=== PATIENT | male | born 1960 | race Caucasian/White ===

== ENCOUNTER 2016-09-02 15:04 | Emergency (ER) | payer MEDICAID ==
[~2016-09-02] VITALS: Ht 182.9 cm; Wt 136.0 kg
[~2016-09-02 15:04] MED LIST: CLON2 PO; HYDR25 PO; LITH300C3 PO; LITH600 PO; METO25 PO; OMEP20 PO; QUET200T PO
[2016-09-02] MEDS ORDERED: MORP30 PO (15:13)
[2016-09-02] MEDS ORDERED: FURO40 PO (15:14)
[2016-09-02] MEDS ORDERED: LIDOCAINE HCL/PF 1% 2 ML VIAL IM ONE (16:30)
[2016-09-02] MEDS ORDERED: CefTRIAXone SODIUM 1 GM/VIAL IM ONE (16:30)
[2016-09-02] MEDS ORDERED: DiphenhydrAMINE HCL 25 MG CAPSULE PO ONE (16:30)
[2016-09-02 17:23] VITALS: BP 140/94
== END 2016-09-02 18:57 | disposition home or self-care (01) ==
LOC: EMS 15:06
DX: L03.115 Cellulitis of right lower limb (principal); L29.9 Pruritus, unspecified; L08.9 Local infection of the skin and subcutaneous tissue, unspecified; I10 Essential (primary) hypertension; F17.210 Nicotine dependence, cigarettes, uncomplicated; Z20.7 Contact with and (suspected) exposure to pediculosis, acariasis and other infestations
CPT/HCPCS: 96372; 99284; J0696; J3490

== ENCOUNTER 2016-12-10 15:19 | Emergency (ER) | payer MEDICAID, OTHER ==
[~2016-12-10] VITALS: Ht 182.9 cm; Wt 140.4 kg
[~2016-12-10 15:19] MED LIST changes: +FURO40 PO; -HYDR25 PO; -LITH300C3 PO; -LITH600 PO; +MORP30 PO
[2016-12-10 17:38] VITALS: BP 151/90
== END 2016-12-10 17:42 | disposition home or self-care (01) ==
LOC: EMS 15:24
DX: L23.9 Allergic contact dermatitis, unspecified cause (principal); B86 Scabies; I10 Essential (primary) hypertension; F17.210 Nicotine dependence, cigarettes, uncomplicated
CPT/HCPCS: 99282

== ENCOUNTER 2016-12-10 19:35 | Inpatient (IN) | payer MEDICAID, OTHER ==
[~2016-12-10] VITALS: Ht 182.9 cm; Wt 141.0 kg
[2016-12-10 20:10] LABS: BASOPHILS % (AUTO) 0.8 % (0.0-2.0); EOSINOPHILS % (AUTO) 3.5 % (1.0-6.0); HEMATOCRIT 41.2 % (41-53); HEMOGLOBIN 13.4 g/dL (13.5-17.5); LYMPHOCYTES # (AUTO) 4.6 K/uL (1.0-4.8); LYMPHOCYTES % (AUTO) 44.9 % (22.0-44.0); MEAN CORPUSCULAR HEMOGLOBIN 27.1 pg (26.0-34.0); MEAN CORPUSCULAR HGB CONC 32.5 G/dL (31.0-37.0); MEAN CORPUSCULAR VOLUME 83 fL (80-100); MONOCYTES # (AUTO) 1.3 K/uL (0.1-1.0); MONOCYTES % (AUTO) 12.6 % (2.0-9.0); NEUTROPHILS # (AUTO) 3.9 K/uL (1.8-7.7); NEUTROPHILS % (AUTO) 38.2 % (40.0-70.0); PLATELET COUNT (AUTO) 368 K/uL (150-450); RED BLOOD CELL COUNT(AUTO) 4.94 MIL/uL (4.50-5.90); RED CELL DISTRIBUTION WIDTH 15.6 % (11.5-14.5); WHITE BLOOD COUNT (AUTO) 10.1 K/uL (4.5-11.0)
[2016-12-10 20:40] LABS: CARBON DIOXIDE 27 mmol/L (22-29); CHLORIDE 103 mmol/L (98-107); POTASSIUM 3.7 mmol/L (3.5-5.1); SODIUM SERUM 140 mmol/L (136-145)
[2016-12-10 20:41] LABS: ANION GAP 96 mmol/L (8-16); ASPARTATE AMINOTRANSFERASE 25 U/L (15-37); BILIRUBIN,TOTAL 0.5 mg/dL (0.1-1.0); CREATININE 1.02 mg/dL (0.60-1.30); GLOMERULAR FILTR. RATE CALC > 60 mL/min (>60); UREA NITROGEN, BLOOD 11 mg/dL (7-18)
[2016-12-10 20:42] LABS: ALANINE AMINOTRANSFERASE 35 U/L (12-78); ALBUMIN 3.9 g/dL (3.4-5.0); TOTAL PROTEIN, SERUM 9.1 g/dL (6.4-8.2)
[2016-12-10] MEDS ORDERED: CEPHALEXIN MONOHYDRATE 500 MG CAPSULE PO ONE (22:15)
[2016-12-10] MEDS ORDERED: QUEtiapine FUMARATE 100 MG TABLET PO ONE (22:15)
[2016-12-10] MEDS ORDERED: PERMETHRIN 5% 60 GM CREAM TP ONE (22:15)
[2016-12-10] MEDS ORDERED: QUEtiapine FUMARATE 100 MG TABLET PO PRN (22:45)
[2016-12-10] MEDS ORDERED: ZOLPIDEM TARTRATE 10 MG TABLET PO PRN (22:45)
[2016-12-10 23:17] LABS: CHOL/HDL RATIO 4.5 (4.2-7.3)
[2016-12-11 01:32] VITALS: BP 121/66
[2016-12-11 07:12] LABS: ADD UA MICROSCOPIC NO; APPEARANCE,URINE CLEAR (CLEAR); GLUCOSE, URINE (UA) NEGATIVE (NEGATIVE); KETONES,URINE NEGATIVE (NEGATIVE); LEUKOCYTE ESTERASE ,URINE NEGATIVE (NEGATIVE); OCCULT BLOOD,URINE NEGATIVE (NEGATIVE); PH,URINE 5.5 (5.0-8.0); PROTEIN,URINE NEGATIVE (NEGATIVE)
[2016-12-11] MEDS ORDERED: ALBUTEROL SULFATE HFA 90 MCG/PUFF 8 GM INHALER IH PRN (07:30)
[2016-12-11] MEDS ORDERED: ACETAMINOPHEN 325 MG TABLET PO PRN (07:30)
[2016-12-11] MEDS ORDERED: IBUPROFEN 600 MG TABLET PO PRN (07:30)
[2016-12-11] MEDS ORDERED: PETROLATUM,WHITE 71 GM JELLY TP PRN (07:30)
[2016-12-11] MEDS ORDERED: ONDANSETRON HCL 4 MG TABLET PO PRN (07:30)
[2016-12-11] MEDS ORDERED: CloNIDine HCL 0.1 MG TABLET PO PRN (07:30)
[2016-12-11] MEDS ORDERED: LOPERAMIDE HCL 2 MG CAPSULE PO PRN (07:30)
[2016-12-11] MEDS ORDERED: MAGNESIUM HYDROXIDE SUSPENSION 30 ML UDCUP PO PRN (07:30)
[2016-12-11] MEDS ORDERED: BACITRACIN 28.4 GM OINTMENT TP PRN (07:30)
[2016-12-11] MEDS ORDERED: MAG HYDROX/AL HYDROX/SIMETH ES 30 ML SUSPENSION UDCUP PO PRN (07:30)
[2016-12-11] MEDS ORDERED: BENZOCAINE/MENTHOL LOZENGE [8 LOZENGES/PACKET] MM PRN (07:45)
[2016-12-11 08:00] VITALS: BP 111/67
[2016-12-11] MEDS: METOPROLOL TARTRATE 25 MG TABLET PO SCH ×2 (09:00→16:08)
[2016-12-11] MEDS: OMEPRAZOLE 20 MG CAPSULE PO SCH (09:47)
[2016-12-11] MEDS: DOCUSATE SODIUM 100 MG CAPSULE PO SCH (09:47)
[2016-12-11] MEDS: TraMADol HCL 50 MG TABLET PO PRN (09:47)
[2016-12-11] MEDS: ESCITALOPRAM OXALATE 10 MG TABLET PO SCH (13:00)
[2016-12-11 16:08] VITALS: BP 124/88
[2016-12-11] MEDS: QUEtiapine FUMARATE 200 MG TABLET PO SCH (20:40)
[2016-12-12] MEDS: DOCUSATE SODIUM 100 MG CAPSULE PO SCH (09:10)
[2016-12-12] MEDS: OMEPRAZOLE 20 MG CAPSULE PO SCH (09:10)
[2016-12-12] MEDS: METOPROLOL TARTRATE 25 MG TABLET PO SCH ×2 (09:11→16:54)
[2016-12-12] MEDS: ESCITALOPRAM OXALATE 10 MG TABLET PO SCH (09:11)
[2016-12-12 11:33] VITALS: BP 136/77
[2016-12-12] MEDS: TraMADol HCL 50 MG TABLET PO PRN (11:33)
[2016-12-12] MEDS: LORazepam 2 MG TABLET PO PRN (14:15)
[2016-12-12 20:08] VITALS: BP 127/70
[2016-12-12] MEDS: QUEtiapine FUMARATE 200 MG TABLET PO SCH (21:19)
[2016-12-13 01:05] VITALS: BP 144/84
[2016-12-13] MEDS: TraMADol HCL 50 MG TABLET PO PRN ×2 (01:10→10:06)
[2016-12-13] MEDS: DOCUSATE SODIUM 100 MG CAPSULE PO SCH (10:00)
[2016-12-13] MEDS: METOPROLOL TARTRATE 25 MG TABLET PO SCH ×2 (10:01→17:38)
[2016-12-13] MEDS: ESCITALOPRAM OXALATE 10 MG TABLET PO SCH (10:01)
[2016-12-13] MEDS: OMEPRAZOLE 20 MG CAPSULE PO SCH (10:01)
[2016-12-13 10:06] VITALS: BP 136/72
[2016-12-13] MEDS ORDERED: PNEUMOCOCCAL VACCINE POLYVALENT 0.5 ML VIAL [PPSV23] IM ONE (11:30)
[2016-12-13] MEDS: LORazepam 2 MG TABLET PO PRN (12:27)
[2016-12-13] MEDS ORDERED: MORPHINE SULFATE 30 MG ER TABLET PO ONE (16:30)
[2016-12-13 17:33] VITALS: BP 134/69
[2016-12-13] MEDS: QUEtiapine FUMARATE 200 MG TABLET PO SCH (20:05)
[2016-12-14] MEDS: OMEPRAZOLE 20 MG CAPSULE PO SCH (09:51)
[2016-12-14] MEDS: METOPROLOL TARTRATE 25 MG TABLET PO SCH ×2 (09:51→17:59)
[2016-12-14] MEDS: DOCUSATE SODIUM 100 MG CAPSULE PO SCH (09:51)
[2016-12-14 09:52] VITALS: BP 104/55
[2016-12-14] MEDS: ESCITALOPRAM OXALATE 10 MG TABLET PO SCH (09:52)
[2016-12-14] MEDS: TraMADol HCL 50 MG TABLET PO PRN ×2 (09:52→20:17)
[2016-12-14] MEDS: LORazepam 2 MG TABLET PO PRN ×2 (12:24→22:12)
[2016-12-14 20:17] VITALS: BP 142/79
[2016-12-14] MEDS: QUEtiapine FUMARATE 200 MG TABLET PO SCH (20:27)
[2016-12-14] MEDS ORDERED: MORPHINE SULFATE 15 MG ER TABLET PO ONE (22:30)
[2016-12-15 08:02] VITALS: BP 138/68
[2016-12-15] MEDS: METOPROLOL TARTRATE 25 MG TABLET PO SCH ×2 (09:13→17:13)
[2016-12-15] MEDS: OMEPRAZOLE 20 MG CAPSULE PO SCH (09:14)
[2016-12-15] MEDS: DOCUSATE SODIUM 100 MG CAPSULE PO SCH (09:14)
[2016-12-15] MEDS: LORazepam 2 MG TABLET PO PRN ×2 (09:14→21:42)
[2016-12-15] MEDS: ESCITALOPRAM OXALATE 10 MG TABLET PO SCH (09:14)
[2016-12-15] MEDS: MORPHINE SULFATE 15 MG ER TABLET PO SCH (09:15)
[2016-12-15] MEDS ORDERED: MORPHINE SULFATE 30 MG ER TABLET PO SCH (17:00)
[2016-12-15 20:39] VITALS: BP 141/79
[2016-12-15] MEDS: TraMADol HCL 50 MG TABLET PO PRN (20:40)
[2016-12-15] MEDS: QUEtiapine FUMARATE 200 MG TABLET PO SCH (20:40)
[2016-12-15 21:39] VITALS: BP 130/80
[2016-12-16] MEDS: MORPHINE SULFATE 15 MG ER TABLET PO SCH (08:36)
[2016-12-16] MEDS: OMEPRAZOLE 20 MG CAPSULE PO SCH (08:37)
[2016-12-16] MEDS: METOPROLOL TARTRATE 25 MG TABLET PO SCH ×2 (08:37→16:54)
[2016-12-16] MEDS: ESCITALOPRAM OXALATE 10 MG TABLET PO SCH (08:37)
[2016-12-16] MEDS: DOCUSATE SODIUM 100 MG CAPSULE PO SCH (08:37)
[2016-12-16] MEDS: LORazepam 2 MG TABLET PO PRN ×2 (08:40→17:51)
[2016-12-16 11:10] VITALS: BP 138/78
[2016-12-16] MEDS: TraMADol HCL 50 MG TABLET PO PRN (11:10)
[2016-12-16] MEDS ORDERED: ESCITALOPRAM OXALATE 10 MG TABLET PO ONE (14:00)
[2016-12-16 16:01] VITALS: BP 136/67
[2016-12-16] MEDS: QUEtiapine FUMARATE 200 MG TABLET PO SCH (21:10)
[2016-12-16 23:08] VITALS: BP 140/80
[2016-12-17 07:02] LABS: HEMOGLOBIN 13.6 g/dL (13.5-17.5); MEAN CORPUSCULAR HEMOGLOBIN 27.3 pg (26.0-34.0); MEAN CORPUSCULAR HGB CONC 32.4 G/dL (31.0-37.0); MEAN CORPUSCULAR VOLUME 84 fL (80-100); PLATELET COUNT (AUTO) 291 K/uL (150-450); RED BLOOD CELL COUNT(AUTO) 4.98 MIL/uL (4.50-5.90); RED CELL DISTRIBUTION WIDTH 14.9 % (11.5-14.5); WHITE BLOOD COUNT (AUTO) 10.3 K/uL (4.5-11.0)
[2016-12-17 07:05] LABS: ANION GAP 9 mmol/L (8-16); CALCIUM, TOTAL 8.6 mg/dL (8.8-10.5); CARBON DIOXIDE 26 mmol/L (22-29); CHLORIDE 104 mmol/L (98-107); CREATININE 0.95 mg/dL (0.60-1.30); GLOMERULAR FILTR. RATE CALC > 60 mL/min (>60); SODIUM SERUM 139 mmol/L (136-145); UREA NITROGEN, BLOOD 17 mg/dL (7-18)
[2016-12-17 07:32] LABS: EOSINOPHILS % (MANUAL) 1 % (1-6); LYMPHOCYTES % (MANUAL) 38 % (22-44); TOTAL CELLS COUNTED 100
[2016-12-17 07:33] LABS: RBC MORPHOLOGY COMMENT NORMAL RBC MORPH
[2016-12-17 07:42] LABS: B-TYPE NATRIURETIC PEPTIDE 17 pg/mL (0-100)
[2016-12-17 08:05] VITALS: BP 136/88
[2016-12-17] MEDS: OMEPRAZOLE 20 MG CAPSULE PO SCH (09:58)
[2016-12-17] MEDS: ESCITALOPRAM OXALATE 10 MG TABLET PO SCH (09:58)
[2016-12-17] MEDS: DOCUSATE SODIUM 100 MG CAPSULE PO SCH (09:58)
[2016-12-17] MEDS: MORPHINE SULFATE 15 MG ER TABLET PO SCH (09:58)
[2016-12-17] MEDS: METOPROLOL TARTRATE 25 MG TABLET PO SCH ×2 (09:59→16:46)
[2016-12-17] MEDS: LORazepam 2 MG TABLET PO PRN (13:17)
[2016-12-17 16:08] VITALS: BP 113/72
[2016-12-17] MEDS: TraMADol HCL 50 MG TABLET PO PRN (16:54)
[2016-12-17] MEDS: QUEtiapine FUMARATE 200 MG TABLET PO SCH (20:19)
[2016-12-18 09:14] VITALS: BP 108/72
[2016-12-18] MEDS: MORPHINE SULFATE 15 MG ER TABLET PO SCH (10:09)
[2016-12-18] MEDS: DOCUSATE SODIUM 100 MG CAPSULE PO SCH (10:09)
[2016-12-18] MEDS: OMEPRAZOLE 20 MG CAPSULE PO SCH (10:09)
[2016-12-18] MEDS: METOPROLOL TARTRATE 25 MG TABLET PO SCH ×2 (10:09→17:50)
[2016-12-18] MEDS: ESCITALOPRAM OXALATE 10 MG TABLET PO SCH (10:10)
[2016-12-18 11:20] VITALS: BP 108/56
[2016-12-18] MEDS: TraMADol HCL 50 MG TABLET PO PRN (11:20)
[2016-12-18 12:20] VITALS: BP 110/68
[2016-12-18] MEDS: LORazepam 2 MG TABLET PO PRN ×2 (12:51→21:55)
[2016-12-18 16:00] VITALS: BP 140/86
[2016-12-18] MEDS: QUEtiapine FUMARATE 200 MG TABLET PO SCH (21:55)
[2016-12-19] MEDS: DOCUSATE SODIUM 100 MG CAPSULE PO SCH (08:29)
[2016-12-19] MEDS: MORPHINE SULFATE 15 MG ER TABLET PO SCH (08:29)
[2016-12-19] MEDS: OMEPRAZOLE 20 MG CAPSULE PO SCH (08:29)
[2016-12-19] MEDS: ESCITALOPRAM OXALATE 10 MG TABLET PO SCH (08:29)
[2016-12-19] MEDS: METOPROLOL TARTRATE 25 MG TABLET PO SCH (08:29)
[2016-12-19 09:17] VITALS: BP 131/82
[2016-12-19] MEDS: TraMADol HCL 50 MG TABLET PO PRN (12:11)
[2016-12-19] MEDS: LORazepam 2 MG TABLET PO PRN (12:11)
[2016-12-19] MEDS ORDERED: ESCI10TA PO (13:33)
[2016-12-19] MEDS ORDERED: DSS100 PO (13:35)
== END 2016-12-19 16:00 | disposition home or self-care (01) | DRG 750 ==
LOC: EMS 19:36 → 3EI 23:38
PROC: GZHZZZZ Group Psychotherapy (ICD-10-PCS; principal; 2016-12-11)
DX: F25.1 Schizoaffective disorder, depressive type (principal); R45.851 Suicidal ideations; C10.9 Malignant neoplasm of oropharynx, unspecified; Z68.41 Body mass index [BMI] 40.0-44.9, adult; I10 Essential (primary) hypertension; B86 Scabies; C14.0 Malignant neoplasm of pharynx, unspecified; J44.9 Chronic obstructive pulmonary disease, unspecified; F17.210 Nicotine dependence, cigarettes, uncomplicated; F15.90 Other stimulant use, unspecified, uncomplicated; E78.5 Hyperlipidemia, unspecified; F10.129 Alcohol abuse with intoxication, unspecified; G89.3 Neoplasm related pain (acute) (chronic); M21.371 Foot drop, right foot; E66.9 Obesity, unspecified; K21.9 Gastro-esophageal reflux disease without esophagitis; K59.00 Constipation, unspecified; G47.00 Insomnia, unspecified; Z71.6 Tobacco abuse counseling; Z72.89 Other problems related to lifestyle; Z71.41 Alcohol abuse counseling and surveillance of alcoholic; Z79.899 Other long term (current) drug therapy; Z91.5 Personal history of self-harm; Z79.891 Long term (current) use of opiate analgesic; Z28.21 Immunization not carried out because of patient refusal
CPT/HCPCS: 83735; 84100; 85007; 87040; 93005; 99285; G0480

== ENCOUNTER 2017-02-26 12:17 | Emergency (ER) | payer MEDICAID, OTHER ==
[~2017-02-26] VITALS: Ht 182.9 cm; Wt 139.1 kg
[~2017-02-26 12:17] MED LIST changes: -CLON2 PO; +DSS100 PO; +ESCI10TA PO; -FURO40 PO; -MORP30 PO
[2017-02-26 15:15] LABS: EOSINOPHILS % (AUTO) 2.5 % (1.0-6.0); HEMOGLOBIN 13.1 g/dL (13.5-17.5); LYMPHOCYTES # (AUTO) 4.7 K/uL (1.0-4.8); LYMPHOCYTES % (AUTO) 35.6 % (22.0-44.0); MEAN CORPUSCULAR HGB CONC 33.5 G/dL (31.0-37.0); MEAN CORPUSCULAR VOLUME 81 fL (80-100); MONOCYTES # (AUTO) 1.6 K/uL (0.1-1.0); MONOCYTES % (AUTO) 12.4 % (2.0-9.0); NEUTROPHILS # (AUTO) 6.4 K/uL (1.8-7.7); NEUTROPHILS % (AUTO) 48.5 % (40.0-70.0); PLATELET COUNT (AUTO) 349 K/uL (150-450); RED BLOOD CELL COUNT(AUTO) 4.84 MIL/uL (4.50-5.90); RED CELL DISTRIBUTION WIDTH 15.5 % (11.5-14.5); WHITE BLOOD COUNT (AUTO) 13.2 K/uL (4.5-11.0)
[2017-02-26 15:25] LABS: CALCIUM, TOTAL 9.3 mg/dL (8.8-10.5); CREATININE 1.45 mg/dL (0.60-1.30); POTASSIUM 3.9 mmol/L (3.5-5.1)
[2017-02-26 15:31] LABS: BILIRUBIN,TOTAL 0.6 mg/dL (0.1-1.0); TOTAL PROTEIN, SERUM 8.8 g/dL (6.4-8.2)
[2017-02-26] MEDS: OxyCODONE HCL/ACETAMINOPHEN 5-325 MG TABLET PO ONE ×2 (15:43→15:54)
[2017-02-26] MEDS ORDERED: SODIUM CHLORIDE 0.9% 1,000 ML IV ONE (15:45)
[2017-02-26] MEDS ORDERED: CLINDAMYCIN 900 MG/D5% WATER 50 ML IV ONE (15:45)
[2017-02-26 16:51] VITALS: BP 152/63
[2017-02-27] MEDS ORDERED: CLON.5 PO (04:34)
[2017-02-27] MEDS ORDERED: HYDR-309 PO (04:34)
== END 2017-02-26 18:43 | disposition home or self-care (01) ==
LOC: EMS 12:18
DX: L03.115 Cellulitis of right lower limb (principal); I10 Essential (primary) hypertension; F17.210 Nicotine dependence, cigarettes, uncomplicated
CPT/HCPCS: 36415; 80053; 83690; 84484; 85025; 87040; 96365; 99285; J3490; J7030

== ENCOUNTER 2017-05-12 00:15 | Emergency (ER) | payer MEDICAID, OTHER ==
[~2017-05-12] VITALS: Ht 182.9 cm; Wt 118.2 kg
[~2017-05-12 00:15] MED LIST changes: +CEPH500 PO; -ESCI10TA PO; +FERR-89 PO; -QUET200T PO; +QUET300T2 PO
[2017-05-12] MEDS ORDERED: HYDR-4065 PO (00:26)
[2017-05-12] MEDS ORDERED: CLON1TAB4 PO (00:26)
[2017-05-12] MEDS ORDERED: ATOR20TA65 PO (00:26)
[2017-05-12] MEDS ORDERED: MORP30TA11 PO (00:26)
[2017-05-12] MEDS ORDERED: LISI10TA7 PO (00:26)
[2017-05-12] MEDS ORDERED: PERMETHRIN 1% 60 ML LOTION TP ONE (01:30)
[2017-05-12 01:41] VITALS: BP 144/92
== END 2017-05-12 02:08 | disposition home or self-care (01) ==
LOC: EMS 00:16
DX: B86 Scabies (principal); I10 Essential (primary) hypertension
CPT/HCPCS: 99282

== ENCOUNTER 2017-07-04 17:54 | Inpatient (IN) | payer MEDICAID ==
[~2017-07-04 17:54] MED LIST changes: +ATOR20TA65 PO; -CEPH500 PO; +CLON1TAB4 PO; -DSS100 PO; -FERR-89 PO; +HYDR-4065 PO; +LISI10TA7 PO; +MORP30TA11 PO; -OMEP20 PO
[2017-07-04 21:02] VITALS: BP 127/78
[2017-07-04] MEDS ORDERED: HALOPERIDOL 5 MG TABLET PO PRN (21:30)
[2017-07-04] MEDS ORDERED: ZOLPIDEM TARTRATE 10 MG TABLET PO PRN (21:30)
[2017-07-04] MEDS ORDERED: ACETAMINOPHEN 325 MG TABLET PO PRN (21:45)
[2017-07-04] MEDS ORDERED: IBUPROFEN 600 MG TABLET PO PRN (21:45)
[2017-07-04] MEDS: LORazepam 2 MG TABLET PO PRN (22:02)
[2017-07-04] MEDS: QUEtiapine FUMARATE 100 MG TABLET PO SCH (22:02)
[2017-07-04 22:05] VITALS: BP 131/69
[2017-07-04] MEDS ORDERED: INFLUENZA VIRUS VACCINE QVS 2017-18 (3YR+)/PF 60 MCG/0.5 ML SYRINGE IM ONE (22:15)
[2017-07-05] MEDS: FERROUS SULFATE 325 MG EC TABLET PO SCH ×2 (06:47→17:17)
[2017-07-05] MEDS: OMEPRAZOLE 20 MG CAPSULE PO SCH (06:47)
[2017-07-05 08:17] VITALS: BP 104/64
[2017-07-05] MEDS: QUEtiapine FUMARATE 25 MG TABLET PO SCH ×2 (08:43→16:36)
[2017-07-05] MEDS: DOCUSATE SODIUM 100 MG CAPSULE PO SCH (08:44)
[2017-07-05] MEDS: LORazepam 2 MG TABLET PO PRN ×3 (09:37→20:55)
[2017-07-05] MEDS ORDERED: ACETAMINOPHEN 325 MG TABLET PO PRN (12:00)
[2017-07-05] MEDS ORDERED: ALBUTEROL SULFATE HFA 90 MCG/PUFF 8 GM INHALER IH PRN (12:00)
[2017-07-05] MEDS: METOPROLOL TARTRATE 25 MG TABLET PO SCH ×2 (12:09→17:17)
[2017-07-05 16:30] VITALS: BP 102/61
[2017-07-05] MEDS: QUEtiapine FUMARATE 100 MG TABLET PO SCH (20:55)
[2017-07-05] MEDS: IBUPROFEN 400 MG TABLET PO PRN (20:57)
[2017-07-05 20:58] VITALS: BP 108/69
[2017-07-06] MEDS: OMEPRAZOLE 20 MG CAPSULE PO SCH (06:20)
[2017-07-06] MEDS: FERROUS SULFATE 325 MG EC TABLET PO SCH ×2 (06:20→17:45)
[2017-07-06 08:26] VITALS: BP 124/86
[2017-07-06] MEDS: DOCUSATE SODIUM 100 MG CAPSULE PO SCH (09:32)
[2017-07-06] MEDS: METOPROLOL TARTRATE 25 MG TABLET PO SCH ×2 (09:32→17:45)
[2017-07-06] MEDS: QUEtiapine FUMARATE 25 MG TABLET PO SCH ×2 (09:33→17:45)
[2017-07-06] MEDS: LORazepam 2 MG TABLET PO PRN ×3 (09:53→22:58)
[2017-07-06] MEDS: IBUPROFEN 400 MG TABLET PO PRN (14:59)
[2017-07-06 15:03] VITALS: BP 117/75
[2017-07-06 16:00] VITALS: BP 120/79
[2017-07-06 16:38] VITALS: BP 120/79
[2017-07-06] MEDS: QUEtiapine FUMARATE 100 MG TABLET PO SCH (20:47)
[2017-07-07] MEDS: OMEPRAZOLE 20 MG CAPSULE PO SCH ×2 (06:48→10:49)
[2017-07-07] MEDS: FERROUS SULFATE 325 MG EC TABLET PO SCH ×2 (06:48→16:52)
[2017-07-07] MEDS: DOCUSATE SODIUM 100 MG CAPSULE PO SCH (10:49)
[2017-07-07] MEDS: METOPROLOL TARTRATE 25 MG TABLET PO SCH ×2 (10:49→16:15)
[2017-07-07] MEDS: QUEtiapine FUMARATE 25 MG TABLET PO SCH ×2 (10:50→16:15)
[2017-07-07] MEDS: LORazepam 2 MG TABLET PO PRN ×2 (10:52→20:18)
[2017-07-07 10:53] VITALS: BP 121/74
[2017-07-07] MEDS: IBUPROFEN 400 MG TABLET PO PRN ×2 (10:53→20:17)
[2017-07-07 17:13] VITALS: BP 132/77
[2017-07-07 20:15] VITALS: BP 119/72
[2017-07-07] MEDS: QUEtiapine FUMARATE 100 MG TABLET PO SCH (20:16)
[2017-07-07 21:15] VITALS: BP 121/70
[2017-07-08] MEDS: FERROUS SULFATE 325 MG EC TABLET PO SCH ×2 (06:35→17:52)
[2017-07-08] MEDS: OMEPRAZOLE 20 MG CAPSULE PO SCH (07:13)
[2017-07-08] MEDS: QUEtiapine FUMARATE 25 MG TABLET PO SCH ×2 (09:45→17:53)
[2017-07-08] MEDS: DOCUSATE SODIUM 100 MG CAPSULE PO SCH (09:45)
[2017-07-08] MEDS: METOPROLOL TARTRATE 25 MG TABLET PO SCH ×2 (09:45→17:52)
[2017-07-08 09:56] VITALS: BP 123/70
[2017-07-08] MEDS: IBUPROFEN 400 MG TABLET PO PRN (10:10)
[2017-07-08 10:11] VITALS: BP 136/70
[2017-07-08] MEDS: LORazepam 2 MG TABLET PO PRN ×3 (10:11→21:35)
[2017-07-08 17:03] VITALS: BP 117/73
[2017-07-08] MEDS: QUEtiapine FUMARATE 100 MG TABLET PO SCH (21:35)
[2017-07-09] MEDS: FERROUS SULFATE 325 MG EC TABLET PO SCH ×2 (06:37→16:44)
[2017-07-09] MEDS: OMEPRAZOLE 20 MG CAPSULE PO SCH (07:08)
[2017-07-09] MEDS: DOCUSATE SODIUM 100 MG CAPSULE PO SCH ×2 (09:00→10:35)
[2017-07-09 10:30] VITALS: BP 140/80
[2017-07-09] MEDS: METOPROLOL TARTRATE 25 MG TABLET PO SCH ×2 (10:35→16:41)
[2017-07-09] MEDS: QUEtiapine FUMARATE 25 MG TABLET PO SCH ×2 (10:36→16:41)
[2017-07-09] MEDS: FLUoxetine HCL 20 MG CAPSULE PO SCH (10:36)
[2017-07-09] MEDS: LORazepam 2 MG TABLET PO PRN ×3 (10:37→21:27)
[2017-07-09 16:30] VITALS: BP 121/75
[2017-07-09] MEDS: QUEtiapine FUMARATE 100 MG TABLET PO SCH (20:28)
[2017-07-10 00:08] VITALS: BP 130/83
[2017-07-10] MEDS: FERROUS SULFATE 325 MG EC TABLET PO SCH (06:30)
[2017-07-10] MEDS: DOCUSATE SODIUM 100 MG CAPSULE PO SCH (09:00)
[2017-07-10 09:10] VITALS: BP 123/85
[2017-07-10] MEDS: FLUoxetine HCL 20 MG CAPSULE PO SCH (09:27)
[2017-07-10] MEDS: QUEtiapine FUMARATE 25 MG TABLET PO SCH (09:27)
[2017-07-10] MEDS: LORazepam 2 MG TABLET PO PRN (09:27)
[2017-07-10] MEDS: METOPROLOL TARTRATE 25 MG TABLET PO SCH (09:28)
[2017-07-10] MEDS ORDERED: QUET25TA PO (12:15)
[2017-07-10] MEDS ORDERED: QUET100T PO (12:16)
[2017-07-10] MEDS ORDERED: FLUO-191 PO (12:16)
[2017-07-10] MEDS ORDERED: FERR-89 PO (12:17)
[2017-07-10] MEDS ORDERED: DSS100 PO (12:17)
[2017-07-10] MEDS ORDERED: OMEP20 PO (12:18)
== END 2017-07-10 13:30 | disposition home or self-care (01) | DRG 750 ==
LOC: 3EI 20:20
DX: F25.1 Schizoaffective disorder, depressive type (principal); R45.851 Suicidal ideations; F15.20 Other stimulant dependence, uncomplicated; I10 Essential (primary) hypertension; R07.9 Chest pain, unspecified; G89.29 Other chronic pain; K21.9 Gastro-esophageal reflux disease without esophagitis; J44.9 Chronic obstructive pulmonary disease, unspecified; E78.5 Hyperlipidemia, unspecified; S93.402A Sprain of unspecified ligament of left ankle, initial encounter; S93.401A Sprain of unspecified ligament of right ankle, initial encounter; Z91.5 Personal history of self-harm; Z85.819 Personal history of malignant neoplasm of unspecified site of lip, oral cavity, and pharynx; Z79.899 Other long term (current) drug therapy; X58.XXXA Exposure to other specified factors, initial encounter; Y93.89 Activity, other specified; Y92.89 Other specified places as the place of occurrence of the external cause; Y99.8 Other external cause status
CPT/HCPCS: 84443; 87081

== ENCOUNTER 2017-09-07 22:29 | Inpatient (IN) | payer MEDICAID ==
[~2017-09-07] VITALS: Ht 182.9 cm; Wt 117.3 kg
[~2017-09-07 22:29] MED LIST changes: -ATOR20TA65 PO; -CLON1TAB4 PO; +DSS100 PO; +FERR-89 PO; +FLUO-191 PO; -HYDR-4065 PO; -LISI10TA7 PO; -MORP30TA11 PO; +OMEP20 PO; +QUET100T PO; +QUET25TA PO; -QUET300T2 PO
[2017-09-07] MEDS ORDERED: LORazepam 2 MG TABLET PO PRN (23:45)
[2017-09-08] MEDS ORDERED: INFLUENZA VIRUS VACCINE QVS 2017-18 (3YR+)/PF 60 MCG/0.5 ML SYRINGE IM ONE (00:15)
[2017-09-08] MEDS ORDERED: PNEUMOCOCCAL VACCINE POLYVALENT 0.5 ML VIAL [PPSV23] IM ONE (00:15)
[2017-09-08 01:00] VITALS: BP 161/84
[2017-09-08] MEDS: ZOLPIDEM TARTRATE 10 MG TABLET PO PRN (02:46)
[2017-09-08 06:41] LABS: BASOPHILS % (AUTO) 0.7 % (0.0-2.0); HEMATOCRIT 38.7 % (41-53); HEMOGLOBIN 13.3 g/dL (13.5-17.5); LYMPHOCYTES # (AUTO) 2.6 K/uL (1.0-4.8); LYMPHOCYTES % (AUTO) 30.4 % (22.0-44.0); MEAN CORPUSCULAR HEMOGLOBIN 28.3 pg (26.0-34.0); MEAN CORPUSCULAR HGB CONC 34.4 G/dL (31.0-37.0); MEAN CORPUSCULAR VOLUME 82 fL (80-100); MONOCYTES # (AUTO) 1.2 K/uL (0.1-1.0); MONOCYTES % (AUTO) 13.4 % (2.0-9.0); NEUTROPHILS # (AUTO) 4.6 K/uL (1.8-7.7); NEUTROPHILS % (AUTO) 53.5 % (40.0-70.0); PLATELET COUNT (AUTO) 285 K/uL (150-450); RED BLOOD CELL COUNT(AUTO) 4.71 MIL/uL (4.50-5.90); RED CELL DISTRIBUTION WIDTH 15.2 % (11.5-14.5)
[2017-09-08 08:00] VITALS: BP 132/86
[2017-09-08 08:14] LABS: ALANINE AMINOTRANSFERASE 88 U/L (12-78); ALBUMIN 3.1 g/dL (3.4-5.0); ALKALINE PHOSPHATASE 60 U/L (46-116); ANION GAP 8 mmol/L (8-16); ASPARTATE AMINOTRANSFERASE 55 U/L (15-37); BILIRUBIN,TOTAL 0.6 mg/dL (0.1-1.0); CALCIUM, TOTAL 8.3 mg/dL (8.8-10.5); CARBON DIOXIDE 26 mmol/L (22-29); CHLORIDE 102 mmol/L (98-107); CHOL/HDL RATIO 3.6 (4.2-7.3); CHOLESTEROL 114 mg/dL (131-200); CREATININE 0.86 mg/dL (0.60-1.30); FREE T4 (FREE THYROXINE) 1.02 ng/dL (0.76-1.46); GLOMERULAR FILTR. RATE CALC > 60 mL/min (>60); GLUCOSE,RANDOM 110 mg/dL (70-110); HDL CHOLESTEROL 32 mg/dL (40-60); LDL CHOL (CALC.) 68 mg/dL (0-130); POTASSIUM 3.8 mmol/L (3.5-5.1); SODIUM SERUM 136 mmol/L (136-145); TOTAL PROTEIN, SERUM 7.5 g/dL (6.4-8.2); TRIGLYCERIDES 69 mg/dL (15-150); UREA NITROGEN, BLOOD 19 mg/dL (7-18)
[2017-09-08] MEDS ORDERED: ACETAMINOPHEN 325 MG TABLET PO PRN (16:00)
[2017-09-08 16:30] VITALS: BP 117/78
[2017-09-08] MEDS: FERROUS SULFATE 325 MG EC TABLET PO SCH (17:39)
[2017-09-08] MEDS: QUEtiapine FUMARATE 100 MG TABLET PO SCH (17:39)
[2017-09-08] MEDS: METOPROLOL TARTRATE 25 MG TABLET PO SCH (17:39)
[2017-09-08 19:00] VITALS: BP 117/78
[2017-09-08] MEDS ORDERED: CYANOCOBALAMIN 1,000 MCG/ML VIAL IM ONE (19:00)
[2017-09-08] MEDS ORDERED: HydrOXYzine PAMOATE 50 MG CAPSULE PO PRN (19:00)
[2017-09-08] MEDS ORDERED: LORazepam 2 MG TABLET PO PRN (19:00)
[2017-09-08] MEDS ORDERED: GuaiFENesin/D-METHORPHAN [SUGAR-FREE] 200-20MG/10 ML SYRUP UDCUP PO PRN (19:00)
[2017-09-08] MEDS ORDERED: LOPERAMIDE HCL 2 MG CAPSULE PO PRN (19:00)
[2017-09-08 20:00] VITALS: BP 122/76
[2017-09-08 23:00] VITALS: BP 119/78
[2017-09-09] VITALS (7 sets, daily range): BP systolic 127–147; BP diastolic 77–91
[2017-09-09] MEDS: FERROUS SULFATE 325 MG EC TABLET PO SCH ×2 (06:54→17:42)
[2017-09-09] MEDS: OMEPRAZOLE 20 MG CAPSULE PO SCH (06:54)
[2017-09-09] MEDS ORDERED: LORazepam 2 MG TABLET PO PRN (07:00)
[2017-09-09] MEDS: QUEtiapine FUMARATE 100 MG TABLET PO SCH ×2 (09:00→09:35)
[2017-09-09] MEDS ORDERED: FLUoxetine HCL 20 MG CAPSULE PO SCH (09:00)
[2017-09-09] MEDS: LORazepam 2 MG TABLET PO SCH ×4 (09:34→20:53)
[2017-09-09] MEDS: METOPROLOL TARTRATE 25 MG TABLET PO SCH ×2 (09:34→17:41)
[2017-09-09] MEDS: DOCUSATE SODIUM 100 MG CAPSULE PO SCH (09:34)
[2017-09-09] MEDS: FOLIC ACID 1 MG TABLET PO SCH (09:34)
[2017-09-09] MEDS: SERTRALINE HCL 50 MG TABLET PO SCH (09:35)
[2017-09-09] MEDS: MULTIVITAMINS WITH MINERALS, THERAPEUTIC TABLET PO SCH (09:35)
[2017-09-09] MEDS: THIAMINE HCL 100 MG TABLET PO SCH ×2 (09:35→17:41)
[2017-09-09] MEDS ORDERED: QUEtiapine FUMARATE 300 MG TABLET PO SCH (17:00)
[2017-09-09] MEDS: MUPIROCIN CALCIUM 2% 22 GM OINTMENT NASAL SCH (17:42)
[2017-09-09] MEDS: ZOLPIDEM TARTRATE 10 MG TABLET PO PRN (20:53)
[2017-09-10 05:40] VITALS: BP 145/95
[2017-09-10 06:21] VITALS: BP 145/95
[2017-09-10] MEDS: OMEPRAZOLE 20 MG CAPSULE PO SCH (06:55)
[2017-09-10] MEDS: FERROUS SULFATE 325 MG EC TABLET PO SCH ×2 (06:55→17:38)
[2017-09-10 09:36] VITALS: BP 155/97
[2017-09-10 09:37] VITALS: BP 155/97
[2017-09-10] MEDS: MULTIVITAMINS WITH MINERALS, THERAPEUTIC TABLET PO SCH (10:03)
[2017-09-10] MEDS: THIAMINE HCL 100 MG TABLET PO SCH ×2 (10:03→17:38)
[2017-09-10] MEDS: DOCUSATE SODIUM 100 MG CAPSULE PO SCH (10:03)
[2017-09-10] MEDS: LORazepam 2 MG TABLET PO SCH ×4 (10:03→20:32)
[2017-09-10] MEDS: METOPROLOL TARTRATE 25 MG TABLET PO SCH ×2 (10:03→17:38)
[2017-09-10] MEDS: SERTRALINE HCL 50 MG TABLET PO SCH (10:03)
[2017-09-10] MEDS: FOLIC ACID 1 MG TABLET PO SCH (10:03)
[2017-09-10] MEDS: MUPIROCIN CALCIUM 2% 22 GM OINTMENT NASAL SCH ×2 (10:11→17:39)
[2017-09-10] MEDS ORDERED: QUEtiapine FUMARATE 300 MG TABLET PO SCH (17:00)
[2017-09-10 17:47] VITALS: BP 148/97
[2017-09-10 17:48] VITALS: BP 148/97
[2017-09-11 06:01] VITALS: BP 118/69
[2017-09-11 06:02] VITALS: BP 118/69
[2017-09-11] MEDS ORDERED: LORazepam 1 MG TABLET PO PRN (07:00)
[2017-09-11] MEDS: FERROUS SULFATE 325 MG EC TABLET PO SCH ×2 (07:02→17:56)
[2017-09-11] MEDS: OMEPRAZOLE 20 MG CAPSULE PO SCH (07:02)
[2017-09-11 08:30] VITALS: BP 124/73
[2017-09-11] MEDS: MULTIVITAMINS WITH MINERALS, THERAPEUTIC TABLET PO SCH (09:55)
[2017-09-11] MEDS: THIAMINE HCL 100 MG TABLET PO SCH ×2 (09:55→17:54)
[2017-09-11] MEDS: SERTRALINE HCL 50 MG TABLET PO SCH (09:55)
[2017-09-11] MEDS: DOCUSATE SODIUM 100 MG CAPSULE PO SCH (09:55)
[2017-09-11] MEDS: FOLIC ACID 1 MG TABLET PO SCH (09:56)
[2017-09-11] MEDS: MUPIROCIN CALCIUM 2% 22 GM OINTMENT NASAL SCH ×2 (09:56→17:54)
[2017-09-11] MEDS: LORazepam 1 MG TABLET PO SCH ×3 (09:56→17:54)
[2017-09-11] MEDS: METOPROLOL TARTRATE 25 MG TABLET PO SCH ×2 (09:56→17:55)
[2017-09-11 12:32] VITALS: BP 124/73
[2017-09-11 17:30] VITALS: BP 128/75
[2017-09-11 17:35] VITALS: BP 128/75
[2017-09-11] MEDS: QUEtiapine FUMARATE 300 MG ER TABLET PO SCH (17:55)
[2017-09-12] MEDS: FERROUS SULFATE 325 MG EC TABLET PO SCH ×2 (06:47→17:30)
[2017-09-12] MEDS: OMEPRAZOLE 20 MG CAPSULE PO SCH (06:47)
[2017-09-12 06:50] VITALS: BP 132/72
[2017-09-12] MEDS ORDERED: LORazepam 1 MG TABLET PO PRN (07:00)
[2017-09-12] MEDS: METOPROLOL TARTRATE 25 MG TABLET PO SCH ×2 (09:00→17:30)
[2017-09-12] MEDS ORDERED: SERTRALINE HCL 100 MG TABLET PO SCH (09:00)
[2017-09-12] MEDS: MULTIVITAMINS WITH MINERALS, THERAPEUTIC TABLET PO SCH (09:48)
[2017-09-12] MEDS: FOLIC ACID 1 MG TABLET PO SCH (09:48)
[2017-09-12] MEDS: THIAMINE HCL 100 MG TABLET PO SCH ×2 (09:48→17:30)
[2017-09-12] MEDS: DOCUSATE SODIUM 100 MG CAPSULE PO SCH (09:49)
[2017-09-12] MEDS: MUPIROCIN CALCIUM 2% 22 GM OINTMENT NASAL SCH ×2 (11:42→17:59)
[2017-09-12] MEDS: QUEtiapine FUMARATE 300 MG ER TABLET PO SCH (17:31)
[2017-09-12 19:31] VITALS: BP 138/93
[2017-09-13 01:34] VITALS: BP 150/89
[2017-09-13 01:35] VITALS: BP 150/89
[2017-09-13] MEDS: FERROUS SULFATE 325 MG EC TABLET PO SCH ×2 (07:09→16:40)
[2017-09-13] MEDS: OMEPRAZOLE 20 MG CAPSULE PO SCH (07:09)
[2017-09-13 08:56] VITALS: BP 136/85
[2017-09-13] MEDS ORDERED: SERTRALINE HCL 100 MG TABLET PO SCH (09:00)
[2017-09-13] MEDS: METOPROLOL TARTRATE 25 MG TABLET PO SCH ×2 (09:38→16:41)
[2017-09-13] MEDS: MULTIVITAMINS WITH MINERALS, THERAPEUTIC TABLET PO SCH (09:38)
[2017-09-13] MEDS: DOCUSATE SODIUM 100 MG CAPSULE PO SCH (09:38)
[2017-09-13] MEDS: THIAMINE HCL 100 MG TABLET PO SCH ×2 (09:39→16:41)
[2017-09-13] MEDS: FOLIC ACID 1 MG TABLET PO SCH (09:39)
[2017-09-13] MEDS: MUPIROCIN CALCIUM 2% 22 GM OINTMENT NASAL SCH ×2 (09:39→16:55)
[2017-09-13 16:29] VITALS: BP 120/66
[2017-09-13] MEDS: QUEtiapine FUMARATE 300 MG ER TABLET PO SCH (16:41)
[2017-09-13] MEDS: IBUPROFEN 400 MG TABLET PO PRN (20:21)
[2017-09-14] MEDS: OMEPRAZOLE 20 MG CAPSULE PO SCH (06:55)
[2017-09-14] MEDS: FERROUS SULFATE 325 MG EC TABLET PO SCH ×2 (06:55→16:32)
[2017-09-14 08:42] VITALS: BP 106/77
[2017-09-14] MEDS: MUPIROCIN CALCIUM 2% 22 GM OINTMENT NASAL SCH (09:55)
[2017-09-14] MEDS: DOCUSATE SODIUM 100 MG CAPSULE PO SCH (09:56)
[2017-09-14] MEDS: MULTIVITAMINS WITH MINERALS, THERAPEUTIC TABLET PO SCH (09:59)
[2017-09-14] MEDS: FOLIC ACID 1 MG TABLET PO SCH (09:59)
[2017-09-14] MEDS: METOPROLOL TARTRATE 25 MG TABLET PO SCH ×2 (10:00→16:32)
[2017-09-14] MEDS: SERTRALINE HCL 100 MG TABLET PO SCH (10:02)
[2017-09-14] MEDS: THIAMINE HCL 100 MG TABLET PO SCH ×2 (10:03→16:32)
[2017-09-14] MEDS ORDERED: QUEtiapine FUMARATE 300 MG ER TABLET PO SCH (17:00)
[2017-09-14] MEDS ORDERED: QUEtiapine FUMARATE 200 MG ER TABLET PO SCH ×2 (17:00→21:00)
[2017-09-14 20:08] VITALS: BP 138/78
[2017-09-14] MEDS: ARIPiprazole 10 MG TABLET PO SCH (20:54)
[2017-09-15] MEDS: OMEPRAZOLE 20 MG CAPSULE PO SCH (06:42)
[2017-09-15] MEDS: FERROUS SULFATE 325 MG EC TABLET PO SCH ×2 (06:43→16:45)
[2017-09-15] MEDS: ARIPiprazole 10 MG TABLET PO SCH ×2 (09:00→09:23)
[2017-09-15] MEDS: METOPROLOL TARTRATE 25 MG TABLET PO SCH ×2 (09:21→16:45)
[2017-09-15] MEDS: DOCUSATE SODIUM 100 MG CAPSULE PO SCH (09:21)
[2017-09-15] MEDS: FOLIC ACID 1 MG TABLET PO SCH (09:21)
[2017-09-15] MEDS: THIAMINE HCL 100 MG TABLET PO SCH ×2 (09:22→16:45)
[2017-09-15] MEDS: SERTRALINE HCL 100 MG TABLET PO SCH (09:22)
[2017-09-15] MEDS: MULTIVITAMINS WITH MINERALS, THERAPEUTIC TABLET PO SCH (09:23)
[2017-09-15 13:14] VITALS: BP 136/84
[2017-09-15 20:02] VITALS: BP 143/98
[2017-09-15] MEDS: ZOLPIDEM TARTRATE 10 MG TABLET PO PRN (20:30)
[2017-09-15] MEDS: HALOPERIDOL 5 MG TABLET PO PRN (20:33)
[2017-09-16] MEDS: OMEPRAZOLE 20 MG CAPSULE PO SCH (06:54)
[2017-09-16] MEDS: FERROUS SULFATE 325 MG EC TABLET PO SCH ×2 (06:57→17:56)
[2017-09-16 08:30] VITALS: BP 137/85
[2017-09-16] MEDS: MULTIVITAMINS WITH MINERALS, THERAPEUTIC TABLET PO SCH (08:50)
[2017-09-16] MEDS: ARIPiprazole 10 MG TABLET PO SCH (08:50)
[2017-09-16] MEDS: METOPROLOL TARTRATE 25 MG TABLET PO SCH ×2 (08:51→17:56)
[2017-09-16] MEDS: DOCUSATE SODIUM 100 MG CAPSULE PO SCH (08:51)
[2017-09-16] MEDS: FOLIC ACID 1 MG TABLET PO SCH (08:51)
[2017-09-16] MEDS: SERTRALINE HCL 100 MG TABLET PO SCH (08:51)
[2017-09-16] MEDS: THIAMINE HCL 100 MG TABLET PO SCH ×2 (08:51→17:56)
[2017-09-16] MEDS: IBUPROFEN 400 MG TABLET PO PRN (08:53)
[2017-09-16] MEDS: HALOPERIDOL 5 MG TABLET PO PRN (08:56)
[2017-09-16] MEDS ORDERED: DiphenhydrAMINE HCL 50 MG/ML VIAL IM ONE (09:30)
[2017-09-16] MEDS ORDERED: DiphenhydrAMINE HCL 50 MG/ML VIAL ONE (09:31)
[2017-09-16] MEDS: BENZTROPINE MESYLATE 1 MG TABLET PO SCH (09:50)
[2017-09-16] MEDS ORDERED: DiphenhydrAMINE HCL 25 MG CAPSULE PO ONE (12:45)
[2017-09-16] MEDS ORDERED: LORazepam 2 MG/ML VIAL IM ONE (13:15)
[2017-09-16 18:47] VITALS: BP 132/88
[2017-09-17] MEDS: FERROUS SULFATE 325 MG EC TABLET PO SCH (06:37)
[2017-09-17] MEDS: OMEPRAZOLE 20 MG CAPSULE PO SCH (06:37)
[2017-09-17] MEDS ORDERED: ARIP10TA8 PO (08:04)
[2017-09-17] MEDS ORDERED: SERT100T12 PO (08:04)
[2017-09-17] MEDS ORDERED: BENZ1TAB10 PO (08:04)
[2017-09-17 08:30] VITALS: BP 140/95
[2017-09-17] MEDS: ARIPiprazole 10 MG TABLET PO SCH (08:38)
[2017-09-17] MEDS: MULTIVITAMINS WITH MINERALS, THERAPEUTIC TABLET PO SCH (08:39)
[2017-09-17] MEDS: SERTRALINE HCL 100 MG TABLET PO SCH (08:39)
[2017-09-17] MEDS: BENZTROPINE MESYLATE 1 MG TABLET PO SCH (08:39)
[2017-09-17] MEDS: FOLIC ACID 1 MG TABLET PO SCH (08:39)
[2017-09-17] MEDS: DOCUSATE SODIUM 100 MG CAPSULE PO SCH (08:39)
[2017-09-17] MEDS: METOPROLOL TARTRATE 25 MG TABLET PO SCH (08:39)
[2017-09-17] MEDS: THIAMINE HCL 100 MG TABLET PO SCH (08:39)
== END 2017-09-17 08:55 | disposition home or self-care (01) | DRG 750 ==
LOC: EDSTATUS 23:04 → 3EI 23:44
PROVIDERS: ADMIT Psychiatry & Neurology Psychiatry; ATTEND Psychiatry & Neurology Psychiatry
PROC: 3E0234Z Introduction of Serum, Toxoid and Vaccine into Muscle, Percutaneous Approach (ICD-10-PCS; principal; 2017-09-08)
DX: F25.1 Schizoaffective disorder, depressive type (principal); R45.851 Suicidal ideations; Z91.19 Patient's noncompliance with other medical treatment and regimen; I10 Essential (primary) hypertension; E78.5 Hyperlipidemia, unspecified; F41.9 Anxiety disorder, unspecified; D64.9 Anemia, unspecified; J44.9 Chronic obstructive pulmonary disease, unspecified; K21.9 Gastro-esophageal reflux disease without esophagitis; F60.3 Borderline personality disorder; F10.20 Alcohol dependence, uncomplicated; Z23 Encounter for immunization; Z59.0 Homelessness; Z79.899 Other long term (current) drug therapy
CPT/HCPCS: 80074; 83036; 84439; 84443; 87081; 99285; J1200; J2060; J3420

== ENCOUNTER 2017-10-11 20:01 | Emergency (ER) | payer MEDICAID, OTHER ==
[~2017-10-11] VITALS: Ht 182.9 cm; Wt 122.7 kg
[~2017-10-11 20:01] MED LIST changes: +ARIP10TA8 PO; +BENZ1TAB10 PO; -FERR-89 PO; -FLUO-191 PO; -QUET100T PO; -QUET25TA PO; +SERT100T12 PO
[2017-10-11] MEDS ORDERED: AMOX1TAB16 PO (20:28)
[2017-10-11] MEDS ORDERED: PERMETHRIN 1% 60 ML LOTION TP ONE (22:00)
[2017-10-11] MEDS ORDERED: PERMETHRIN 5% 60 GM CREAM TP ONE (22:15)
[2017-10-11 22:19] VITALS: BP 146/84
[2017-10-11] MEDS ORDERED: IBUPROFEN 800 MG TABLET PO ONE (22:30)
== END 2017-10-11 22:42 | disposition home or self-care (01) ==
LOC: EMS 20:03
DX: L03.115 Cellulitis of right lower limb (principal); B86 Scabies; I10 Essential (primary) hypertension
CPT/HCPCS: 99283

== ENCOUNTER 2019-06-11 17:48 | Emergency (ER) | payer MEDICAID, OTHER ==
[~2019-06-11] VITALS: Ht 182.9 cm; Wt 125.0 kg
[~2019-06-11 17:48] MED LIST changes: +AMOX1TAB16 PO; -ARIP10TA8 PO; -BENZ1TAB10 PO; -DSS100 PO; -OMEP20 PO
[2019-06-11] MEDS ORDERED: CEPH500 PO (18:09)
[2019-06-11] MEDS ORDERED: IBUP-2071 PO (18:09)
[2019-06-11 19:57] VITALS: BP 151/86
[2019-06-12] MEDS ORDERED: GABA-531 PO (01:21)
[2019-06-12] MEDS ORDERED: TRAM50TA4 PO (01:21)
== END 2019-06-11 20:34 | disposition home or self-care (01) ==
LOC: EMS 17:51
DX: L03.116 Cellulitis of left lower limb (principal); L03.115 Cellulitis of right lower limb; F31.9 Bipolar disorder, unspecified; I10 Essential (primary) hypertension; Z76.0 Encounter for issue of repeat prescription

== ENCOUNTER 2019-06-12 00:58 | Inpatient (IN) | payer MEDICAID ==
[~2019-06-12] VITALS: Ht 182.9 cm; Wt 122.8 kg
[~2019-06-12 00:58] MED LIST changes: -AMOX1TAB16 PO; +CEPH500 PO; +IBUP-2071 PO; -SERT100T12 PO
[2019-06-12] MEDS ORDERED: GABA-531 PO (01:21)
[2019-06-12] MEDS ORDERED: TRAM50TA4 PO (01:21)
[2019-06-12] MEDS ORDERED: IBUPROFEN 600 MG TABLET PO ONE (02:15)
[2019-06-12] MEDS ORDERED: HALOPERIDOL 5 MG TABLET PO PRN (05:00)
[2019-06-12] MEDS ORDERED: ZOLPIDEM TARTRATE 10 MG TABLET PO PRN (05:00)
[2019-06-12] MEDS: LORazepam 2 MG TABLET PO PRN ×2 (06:08→12:11)
[2019-06-12 10:06] LABS: AMPHET/METH SCREEN,URINE POSITIVE (NEGATIVE); BARBITURATE SCREEN, URINE NEGATIVE (NEGATIVE); BENZODIAZEPINES SCREEN,URINE NEGATIVE (NEGATIVE); CANNABINOID SCREEN,URINE NEGATIVE (NEGATIVE); COCAINE SCREEN,URINE NEGATIVE (NEGATIVE); METHADONE SCREEN, URINE NEGATIVE (NEGATIVE); OPIATE SCREEN,URINE NEGATIVE (NEGATIVE)
[2019-06-12 10:08] LABS: PHENCYCLIDINE SCREEN,URINE NEGATIVE (NEGATIVE)
[2019-06-12 11:36] VITALS: BP 112/62
[2019-06-12] MEDS ORDERED: INFLUENZA VIRUS VACCINE QVS 2019-20 (3YR+)/PF 60 MCG/0.5 ML SYRINGE IM ONE (12:00)
[2019-06-12 12:03] VITALS: BP 112/62
[2019-06-12] MEDS ORDERED: PNEUMOCOCCAL VACCINE POLYVALENT 0.5 ML VIAL [PPSV23] IM ONE (12:15)
[2019-06-12] MEDS ORDERED: PETROLATUM,WHITE 28 GM JELLY TP PRN (13:30)
[2019-06-12] MEDS ORDERED: ONDANSETRON HCL 4 MG TABLET PO PRN (13:30)
[2019-06-12] MEDS ORDERED: CloNIDine HCL 0.1 MG TABLET PO PRN (13:30)
[2019-06-12] MEDS ORDERED: ACETAMINOPHEN 325 MG TABLET PO PRN (13:30)
[2019-06-12] MEDS ORDERED: GuaiFENesin/D-METHORPHAN [SUGAR-FREE] 200-20MG/10 ML SYRUP UDCUP PO PRN (13:30)
[2019-06-12] MEDS ORDERED: MAG HYDROX/AL HYDROX/SIMETH ES 30 ML SUSPENSION UDCUP PO PRN (13:30)
[2019-06-12] MEDS ORDERED: NICOTINE 14 MG/24 HOUR PATCH TD PRN (13:30)
[2019-06-12] MEDS ORDERED: IBUPROFEN 400 MG TABLET PO PRN (13:30)
[2019-06-12] MEDS ORDERED: ALBUTEROL SULFATE HFA 90 MCG/PUFF 8 GM INHALER IH PRN (13:30)
[2019-06-12] MEDS ORDERED: MAGNESIUM HYDROXIDE SUSPENSION 30 ML UDCUP PO PRN (13:30)
[2019-06-12] MEDS ORDERED: DOCUSATE SODIUM 100 MG CAPSULE PO PRN (13:30)
[2019-06-12] MEDS ORDERED: LOPERAMIDE HCL 2 MG CAPSULE PO PRN (13:30)
[2019-06-12] MEDS: CEPHALEXIN MONOHYDRATE 500 MG CAPSULE PO SCH ×2 (14:11→16:20)
[2019-06-12] MEDS: METOPROLOL TARTRATE 25 MG TABLET PO SCH (16:20)
[2019-06-12] MEDS: NEOMYCIN/BACITRACIN/POLYMYXIN B 30 GM OINTMENT TP SCH (16:28)
[2019-06-12] MEDS: QUEtiapine FUMARATE 100 MG TABLET PO SCH (20:29)
[2019-06-12] MEDS: MIRTAZAPINE 30 MG TABLET PO SCH (20:29)
[2019-06-12 21:07] VITALS: BP 121/68
[2019-06-13 00:05] VITALS: BP 109/63
[2019-06-13] MEDS: METOPROLOL TARTRATE 25 MG TABLET PO SCH ×2 (08:40→17:40)
[2019-06-13] MEDS: CEPHALEXIN MONOHYDRATE 500 MG CAPSULE PO SCH ×3 (08:40→17:41)
[2019-06-13] MEDS: NEOMYCIN/BACITRACIN/POLYMYXIN B 30 GM OINTMENT TP SCH ×2 (08:40→17:41)
[2019-06-13 08:41] VITALS: BP 152/71
[2019-06-13 08:52] LABS: CHOL/HDL RATIO 3.9 (4.2-7.3)
[2019-06-13 11:50] VITALS: BP 125/77
[2019-06-13] MEDS: TraMADol HCL 50 MG TABLET PO PRN (11:50)
[2019-06-13] MEDS: LORazepam 2 MG TABLET PO PRN ×2 (14:06→20:01)
[2019-06-13] MEDS: GABAPENTIN 300 MG CAPSULE PO SCH (16:10)
[2019-06-13 17:40] VITALS: BP 121/76
[2019-06-13] MEDS: MIRTAZAPINE 30 MG TABLET PO SCH (20:01)
[2019-06-13] MEDS: QUEtiapine FUMARATE 100 MG TABLET PO SCH (20:26)
[2019-06-14 01:10] VITALS: BP 128/80
[2019-06-14 04:17] VITALS: BP 132/83
[2019-06-14 06:50] VITALS: BP 150/86
[2019-06-14] MEDS: TraMADol HCL 50 MG TABLET PO PRN (06:55)
[2019-06-14] MEDS: CEPHALEXIN MONOHYDRATE 500 MG CAPSULE PO SCH ×3 (08:37→16:18)
[2019-06-14] MEDS: METOPROLOL TARTRATE 25 MG TABLET PO SCH ×2 (08:37→16:18)
[2019-06-14] MEDS: GABAPENTIN 300 MG CAPSULE PO SCH ×3 (08:37→16:18)
[2019-06-14] MEDS: NEOMYCIN/BACITRACIN/POLYMYXIN B 30 GM OINTMENT TP SCH ×2 (09:39→16:27)
[2019-06-14 10:06] VITALS: BP 140/83
[2019-06-14] MEDS: LORazepam 2 MG TABLET PO PRN ×2 (12:12→18:36)
[2019-06-14 16:15] VITALS: BP 158/90
[2019-06-14 18:35] VITALS: BP 121/73
[2019-06-14] MEDS: MIRTAZAPINE 30 MG TABLET PO SCH (20:22)
[2019-06-14] MEDS: QUEtiapine FUMARATE 25 MG TABLET PO SCH (20:22)
[2019-06-15 00:27] VITALS: BP 132/72
[2019-06-15 08:10] VITALS: BP 140/80
[2019-06-15] MEDS: GABAPENTIN 300 MG CAPSULE PO SCH ×3 (08:10→16:47)
[2019-06-15] MEDS: CEPHALEXIN MONOHYDRATE 500 MG CAPSULE PO SCH ×3 (08:10→16:47)
[2019-06-15] MEDS: METOPROLOL TARTRATE 25 MG TABLET PO SCH ×2 (08:10→16:47)
[2019-06-15] MEDS: NEOMYCIN/BACITRACIN/POLYMYXIN B 30 GM OINTMENT TP SCH ×2 (09:04→16:47)
[2019-06-15 10:43] VITALS: BP 136/87
[2019-06-15] MEDS: TraMADol HCL 50 MG TABLET PO PRN (10:43)
[2019-06-15] MEDS: LORazepam 2 MG TABLET PO PRN ×2 (14:25→20:22)
[2019-06-15 16:07] VITALS: BP 119/74
[2019-06-15] MEDS: QUEtiapine FUMARATE 25 MG TABLET PO SCH (20:18)
[2019-06-15] MEDS: MIRTAZAPINE 30 MG TABLET PO SCH (20:18)
[2019-06-16 08:24] VITALS: BP 115/79
[2019-06-16] MEDS: GABAPENTIN 300 MG CAPSULE PO SCH ×3 (08:30→16:19)
[2019-06-16] MEDS: CEPHALEXIN MONOHYDRATE 500 MG CAPSULE PO SCH ×3 (08:30→16:17)
[2019-06-16] MEDS: METOPROLOL TARTRATE 25 MG TABLET PO SCH ×2 (08:30→16:16)
[2019-06-16] MEDS: TraMADol HCL 50 MG TABLET PO PRN (08:32)
[2019-06-16] MEDS: NEOMYCIN/BACITRACIN/POLYMYXIN B 30 GM OINTMENT TP SCH ×2 (08:33→16:19)
[2019-06-16] MEDS: LORazepam 2 MG TABLET PO PRN ×2 (12:01→17:09)
[2019-06-16 16:15] VITALS: BP 104/60
[2019-06-16] MEDS: MIRTAZAPINE 30 MG TABLET PO SCH (20:23)
[2019-06-16] MEDS: QUEtiapine FUMARATE 25 MG TABLET PO SCH (20:24)
[2019-06-17 08:49] VITALS: BP 140/70
[2019-06-17] MEDS: METOPROLOL TARTRATE 25 MG TABLET PO SCH ×2 (08:51→16:36)
[2019-06-17] MEDS: CEPHALEXIN MONOHYDRATE 500 MG CAPSULE PO SCH ×3 (08:51→16:43)
[2019-06-17] MEDS: GABAPENTIN 300 MG CAPSULE PO SCH ×3 (08:51→16:36)
[2019-06-17] MEDS: NEOMYCIN/BACITRACIN/POLYMYXIN B 30 GM OINTMENT TP SCH ×2 (08:52→18:11)
[2019-06-17] MEDS: LORazepam 2 MG TABLET PO PRN ×2 (09:54→18:04)
[2019-06-17 11:20] VITALS: BP 156/76
[2019-06-17] MEDS: TraMADol HCL 50 MG TABLET PO PRN ×2 (11:24→16:36)
[2019-06-17 11:33] VITALS: BP 156/76
[2019-06-17 16:37] VITALS: BP 129/76
[2019-06-17] MEDS: QUEtiapine FUMARATE 25 MG TABLET PO SCH (20:27)
[2019-06-17] MEDS: MIRTAZAPINE 30 MG TABLET PO SCH (20:28)
[2019-06-17] MEDS: IBUPROFEN 600 MG TABLET PO PRN (21:54)
[2019-06-17 21:55] VITALS: BP 129/77
[2019-06-18] MEDS: LORazepam 2 MG TABLET PO PRN ×2 (08:20→16:47)
[2019-06-18] MEDS: GABAPENTIN 300 MG CAPSULE PO SCH ×3 (08:20→16:28)
[2019-06-18] MEDS: METOPROLOL TARTRATE 25 MG TABLET PO SCH ×2 (08:20→16:26)
[2019-06-18 08:28] VITALS: BP 128/68
[2019-06-18] MEDS: NEOMYCIN/BACITRACIN/POLYMYXIN B 30 GM OINTMENT TP SCH ×2 (09:06→16:29)
[2019-06-18] MEDS: TraMADol HCL 50 MG TABLET PO PRN (11:39)
[2019-06-18 16:14] VITALS: BP 110/73
[2019-06-18] MEDS: QUEtiapine FUMARATE 25 MG TABLET PO SCH (20:17)
[2019-06-18] MEDS: MIRTAZAPINE 30 MG TABLET PO SCH (20:17)
[2019-06-19 01:45] VITALS: BP 113/76
[2019-06-19] MEDS: TraMADol HCL 50 MG TABLET PO PRN ×2 (01:45→14:33)
[2019-06-19 08:15] VITALS: BP 119/64
[2019-06-19] MEDS: GABAPENTIN 300 MG CAPSULE PO SCH ×3 (08:31→16:12)
[2019-06-19] MEDS: METOPROLOL TARTRATE 25 MG TABLET PO SCH ×2 (08:31→16:12)
[2019-06-19] MEDS: LORazepam 2 MG TABLET PO PRN ×2 (09:01→15:44)
[2019-06-19] MEDS: NEOMYCIN/BACITRACIN/POLYMYXIN B 30 GM OINTMENT TP SCH ×2 (09:02→16:12)
[2019-06-19] MEDS ORDERED: OxyCODONE HCL/ACETAMINOPHEN 5-325 MG TABLET PO ONE (12:15)
[2019-06-19 12:29] VITALS: BP 121/69
[2019-06-19 13:29] VITALS: BP 120/68
[2019-06-19 14:33] VITALS: BP 113/73
[2019-06-19 16:24] VITALS: BP 118/72
[2019-06-19] MEDS: MIRTAZAPINE 30 MG TABLET PO SCH (21:01)
[2019-06-19] MEDS: QUEtiapine FUMARATE 25 MG TABLET PO SCH (21:01)
[2019-06-20 00:16] VITALS: BP 110/71
[2019-06-20 03:05] VITALS: BP 120/65
[2019-06-20] MEDS: TraMADol HCL 50 MG TABLET PO PRN (03:09)
[2019-06-20 08:08] VITALS: BP 122/61
[2019-06-20] MEDS: GABAPENTIN 300 MG CAPSULE PO SCH ×3 (09:11→16:06)
[2019-06-20] MEDS: METOPROLOL TARTRATE 25 MG TABLET PO SCH ×2 (09:11→16:06)
[2019-06-20] MEDS: MULTIVITAMINS WITH MINERALS, THERAPEUTIC 15 ML UDCUP PO SCH (09:11)
[2019-06-20] MEDS: LORazepam 2 MG TABLET PO PRN ×2 (09:13→14:26)
[2019-06-20] MEDS: NEOMYCIN/BACITRACIN/POLYMYXIN B 30 GM OINTMENT TP SCH ×2 (09:14→17:16)
[2019-06-20 16:13] VITALS: BP 138/74
[2019-06-20] MEDS: QUEtiapine FUMARATE 25 MG TABLET PO SCH (20:48)
[2019-06-20] MEDS: MIRTAZAPINE 30 MG TABLET PO SCH (21:52)
[2019-06-21 06:43] VITALS: BP 106/61
[2019-06-21] MEDS: TraMADol HCL 50 MG TABLET PO PRN ×2 (07:01→20:12)
[2019-06-21 08:21] VITALS: BP 138/81
[2019-06-21] MEDS: LORazepam 2 MG TABLET PO PRN ×2 (08:46→13:27)
[2019-06-21] MEDS: GABAPENTIN 300 MG CAPSULE PO SCH ×3 (08:46→16:13)
[2019-06-21] MEDS: METOPROLOL TARTRATE 25 MG TABLET PO SCH ×2 (08:46→16:13)
[2019-06-21] MEDS: MULTIVITAMINS WITH MINERALS, THERAPEUTIC 15 ML UDCUP PO SCH (08:46)
[2019-06-21] MEDS: NEOMYCIN/BACITRACIN/POLYMYXIN B 30 GM OINTMENT TP SCH ×2 (09:43→16:13)
[2019-06-21 16:07] VITALS: BP 129/63
[2019-06-21 20:12] VITALS: BP 133/86
[2019-06-21] MEDS: QUEtiapine FUMARATE 25 MG TABLET PO SCH (21:50)
[2019-06-21] MEDS: MIRTAZAPINE 30 MG TABLET PO SCH (21:50)
[2019-06-22] MEDS: LORazepam 2 MG TABLET PO PRN ×3 (06:14→22:20)
[2019-06-22 06:17] VITALS: BP 126/70
[2019-06-22] MEDS: MULTIVITAMINS WITH MINERALS, THERAPEUTIC 15 ML UDCUP PO SCH (09:43)
[2019-06-22] MEDS: GABAPENTIN 300 MG CAPSULE PO SCH ×3 (09:43→16:35)
[2019-06-22] MEDS: NEOMYCIN/BACITRACIN/POLYMYXIN B 30 GM OINTMENT TP SCH (09:43)
[2019-06-22] MEDS: METOPROLOL TARTRATE 25 MG TABLET PO SCH ×2 (09:43→16:35)
[2019-06-22 09:44] VITALS: BP 128/86
[2019-06-22] MEDS: TraMADol HCL 50 MG TABLET PO PRN (09:44)
[2019-06-22 16:13] VITALS: BP 131/69
[2019-06-22 19:51] VITALS: BP 126/72
[2019-06-22] MEDS: IBUPROFEN 600 MG TABLET PO PRN (19:51)
[2019-06-22] MEDS: MIRTAZAPINE 30 MG TABLET PO SCH (21:07)
[2019-06-22] MEDS: QUEtiapine FUMARATE 25 MG TABLET PO SCH (21:07)
[2019-06-23 02:51] VITALS: BP 117/72
[2019-06-23] MEDS: TraMADol HCL 50 MG TABLET PO PRN ×2 (02:56→14:59)
[2019-06-23] MEDS: LORazepam 2 MG TABLET PO PRN ×3 (06:58→21:05)
[2019-06-23] MEDS: MULTIVITAMINS WITH MINERALS, THERAPEUTIC 15 ML UDCUP PO SCH (08:17)
[2019-06-23] MEDS: GABAPENTIN 300 MG CAPSULE PO SCH ×3 (08:17→16:32)
[2019-06-23] MEDS: METOPROLOL TARTRATE 25 MG TABLET PO SCH ×2 (08:17→16:32)
[2019-06-23 08:19] VITALS: BP 121/76
[2019-06-23 14:59] VITALS: BP 132/78
[2019-06-23 16:13] VITALS: BP 141/88
[2019-06-23] MEDS: MIRTAZAPINE 30 MG TABLET PO SCH (21:41)
[2019-06-23] MEDS: QUEtiapine FUMARATE 25 MG TABLET PO SCH (21:41)
[2019-06-24 03:11] VITALS: BP 138/84
[2019-06-24] MEDS: TraMADol HCL 50 MG TABLET PO PRN ×2 (03:20→09:54)
[2019-06-24 08:00] VITALS: BP 113/72
[2019-06-24] MEDS: METOPROLOL TARTRATE 25 MG TABLET PO SCH (08:24)
[2019-06-24] MEDS: MULTIVITAMINS WITH MINERALS, THERAPEUTIC 15 ML UDCUP PO SCH (08:24)
[2019-06-24] MEDS: GABAPENTIN 300 MG CAPSULE PO SCH ×2 (08:24→13:09)
[2019-06-24] MEDS: LORazepam 2 MG TABLET PO PRN (08:49)
[2019-06-24] MEDS ORDERED: GABA-531 PO (13:15)
[2019-06-24] MEDS ORDERED: QUET25TA PO (13:18)
[2019-06-24] MEDS ORDERED: MIRT30 PO (13:18)
== END 2019-06-24 15:08 | disposition home or self-care (01) | DRG 750 ==
LOC: EMS 00:59 → B2S 09:13
DX: F25.1 Schizoaffective disorder, depressive type (principal); R45.851 Suicidal ideations; Z59.0 Homelessness; E78.5 Hyperlipidemia, unspecified; F15.10 Other stimulant abuse, uncomplicated; I10 Essential (primary) hypertension; J44.9 Chronic obstructive pulmonary disease, unspecified; K21.9 Gastro-esophageal reflux disease without esophagitis; Z91.5 Personal history of self-harm; Z79.899 Other long term (current) drug therapy; Z65.3 Problems related to other legal circumstances; L03.119 Cellulitis of unspecified part of limb; Z28.21 Immunization not carried out because of patient refusal
CPT/HCPCS: 87081; 90732

== ENCOUNTER 2019-07-15 00:31 | Inpatient (IN) | payer MEDICAID ==
[~2019-07-15] VITALS: Ht 182.9 cm; Wt 128.3 kg
[~2019-07-15 00:31] MED LIST changes: -CEPH500 PO; +GABA-531 PO; -IBUP-2071 PO; +MIRT30 PO; +QUET25TA PO
[2019-07-15 02:15] VITALS: BP 151/95
[2019-07-15] MEDS ORDERED: HALOPERIDOL 5 MG TABLET PO PRN (02:30)
[2019-07-15] MEDS ORDERED: ZOLPIDEM TARTRATE 10 MG TABLET PO PRN (02:30)
[2019-07-15 03:35] VITALS: BP 124/91
[2019-07-15] MEDS: LORazepam 2 MG TABLET PO PRN ×3 (04:30→21:09)
[2019-07-15] MEDS ORDERED: INFLUENZA VIRUS VACCINE QVS 2019-20 (3YR+)/PF 60 MCG/0.5 ML SYRINGE IM ONE (04:30)
[2019-07-15] MEDS ORDERED: PNEUMOCOCCAL VACCINE POLYVALENT 0.5 ML VIAL [PPSV23] IM ONE (04:30)
[2019-07-15 08:19] VITALS: BP 147/85
[2019-07-15] MEDS ORDERED: CloNIDine HCL 0.1 MG TABLET PO PRN (09:15)
[2019-07-15] MEDS ORDERED: GuaiFENesin/D-METHORPHAN [SUGAR-FREE] 200-20MG/10 ML SYRUP UDCUP PO PRN (09:15)
[2019-07-15] MEDS ORDERED: LOPERAMIDE HCL 2 MG CAPSULE PO PRN (09:15)
[2019-07-15] MEDS ORDERED: MAG HYDROX/AL HYDROX/SIMETH ES 30 ML SUSPENSION UDCUP PO PRN (09:15)
[2019-07-15] MEDS ORDERED: DOCUSATE SODIUM 100 MG CAPSULE PO PRN (09:15)
[2019-07-15] MEDS ORDERED: ALBUTEROL SULFATE HFA 90 MCG/PUFF 8 GM INHALER IH PRN (09:15)
[2019-07-15] MEDS ORDERED: NICOTINE 14 MG/24 HOUR PATCH TD PRN (09:15)
[2019-07-15] MEDS ORDERED: ONDANSETRON HCL 4 MG TABLET PO PRN (09:15)
[2019-07-15] MEDS ORDERED: PETROLATUM,WHITE 28 GM JELLY TP PRN (09:15)
[2019-07-15] MEDS ORDERED: ACETAMINOPHEN 325 MG TABLET PO PRN (09:15)
[2019-07-15] MEDS ORDERED: MAGNESIUM HYDROXIDE SUSPENSION 30 ML UDCUP PO PRN (09:15)
[2019-07-15] MEDS: IBUPROFEN 400 MG TABLET PO PRN ×2 (12:25→21:09)
[2019-07-15] MEDS: CEPHALEXIN MONOHYDRATE 500 MG CAPSULE PO SCH ×3 (13:41→21:09)
[2019-07-15 16:07] VITALS: BP 110/70
[2019-07-15] MEDS: ClonazePAM 1 MG TABLET PO SCH (16:36)
[2019-07-15] MEDS: METOPROLOL TARTRATE 25 MG TABLET PO SCH (16:37)
[2019-07-15] MEDS: QUEtiapine FUMARATE 100 MG TABLET PO SCH (21:09)
[2019-07-15] MEDS: MIRTAZAPINE 30 MG TABLET PO SCH (21:09)
[2019-07-16 00:52] VITALS: BP 111/66
[2019-07-16 07:44] LABS: BASOPHILS % (AUTO) 0.6 % (0.0-2.0); EOSINOPHILS % (AUTO) 3.1 % (1.0-6.0); HEMATOCRIT 38.2 % (41-53); HEMOGLOBIN 13.2 g/dL (13.5-17.5); LYMPHOCYTES # (AUTO) 2.6 K/uL (1.0-4.8); LYMPHOCYTES % (AUTO) 45.9 % (22.0-44.0); MEAN CORPUSCULAR HEMOGLOBIN 29.1 pg (26.0-34.0); MEAN CORPUSCULAR HGB CONC 34.5 G/dL (31.0-37.0); MEAN CORPUSCULAR VOLUME 84 fL (80-100); MONOCYTES # (AUTO) 0.8 K/uL (0.1-1.0); MONOCYTES % (AUTO) 13.9 % (2.0-9.0); NEUTROPHILS # (AUTO) 2.1 K/uL (1.8-7.7); NEUTROPHILS % (AUTO) 36.5 % (40.0-70.0); PLATELET COUNT (AUTO) 185 K/uL (150-450); RED BLOOD CELL COUNT(AUTO) 4.52 MIL/uL (4.50-5.90); RED CELL DISTRIBUTION WIDTH 13.3 % (11.5-14.5)
[2019-07-16 07:53] LABS: HEMOGLOBIN A1C 5.6 % (4.5-6.2)
[2019-07-16 08:07] LABS: ALANINE AMINOTRANSFERASE 29 U/L (12-78); ALKALINE PHOSPHATASE 48 U/L (46-116); ANION GAP 6 mmol/L (8-16); ASPARTATE AMINOTRANSFERASE 27 U/L (15-37); BILIRUBIN,TOTAL 0.6 mg/dL (0.1-1.0); CALCIUM, TOTAL 7.9 mg/dL (8.8-10.5); CARBON DIOXIDE 29 mmol/L (22-29); CHLORIDE 103 mmol/L (98-107); CHOLESTEROL 108 mg/dL (131-200); CREATININE 1.04 mg/dL (0.60-1.30); GLOMERULAR FILTR. RATE CALC > 60 mL/min (>60); GLUCOSE,RANDOM 115 mg/dL (70-110); HDL CHOLESTEROL 27 mg/dL (40-60); LDL CHOL (CALC.) 66 mg/dL (0-130); POTASSIUM 3.7 mmol/L (3.5-5.1); SODIUM SERUM 138 mmol/L (136-145); TOTAL PROTEIN, SERUM 6.8 g/dL (6.4-8.2); TRIGLYCERIDES 77 mg/dL (15-150); UREA NITROGEN, BLOOD 22 mg/dL (7-18)
[2019-07-16 08:20] VITALS: BP 118/69
[2019-07-16] MEDS ORDERED: GABAPENTIN 300 MG CAPSULE PO SCH (09:00)
[2019-07-16] MEDS: GABAPENTIN 300 MG CAPSULE PO SCH ×3 (09:26→16:04)
[2019-07-16] MEDS: ClonazePAM 1 MG TABLET PO SCH ×3 (09:26→16:04)
[2019-07-16] MEDS: METOPROLOL TARTRATE 25 MG TABLET PO SCH ×2 (09:46→16:04)
[2019-07-16] MEDS: CEPHALEXIN MONOHYDRATE 500 MG CAPSULE PO SCH ×4 (09:46→20:14)
[2019-07-16] MEDS: IBUPROFEN 400 MG TABLET PO PRN (12:46)
[2019-07-16 16:06] VITALS: BP 131/89
[2019-07-16] MEDS: QUEtiapine FUMARATE 100 MG TABLET PO SCH (20:14)
[2019-07-16] MEDS: MIRTAZAPINE 30 MG TABLET PO SCH (20:14)
[2019-07-17 00:23] VITALS: BP 120/72
[2019-07-17] MEDS: CEPHALEXIN MONOHYDRATE 500 MG CAPSULE PO SCH ×4 (08:10→20:08)
[2019-07-17] MEDS: ClonazePAM 1 MG TABLET PO SCH ×3 (08:10→16:37)
[2019-07-17] MEDS: GABAPENTIN 300 MG CAPSULE PO SCH ×3 (08:10→16:37)
[2019-07-17] MEDS: METOPROLOL TARTRATE 25 MG TABLET PO SCH ×2 (08:10→16:37)
[2019-07-17 16:12] VITALS: BP 134/75
[2019-07-17] MEDS: MIRTAZAPINE 30 MG TABLET PO SCH (20:07)
[2019-07-17] MEDS: QUEtiapine FUMARATE 100 MG TABLET PO SCH (20:08)
[2019-07-18] MEDS: LORazepam 2 MG TABLET PO PRN ×2 (02:06→11:23)
[2019-07-18 02:42] VITALS: BP 136/88
[2019-07-18 09:50] VITALS: BP 142/80
[2019-07-18] MEDS: GABAPENTIN 300 MG CAPSULE PO SCH ×3 (09:53→16:46)
[2019-07-18] MEDS: ClonazePAM 1 MG TABLET PO SCH ×3 (09:53→16:45)
[2019-07-18] MEDS: CEPHALEXIN MONOHYDRATE 500 MG CAPSULE PO SCH ×4 (09:53→20:06)
[2019-07-18] MEDS: METOPROLOL TARTRATE 25 MG TABLET PO SCH ×2 (09:53→16:45)
[2019-07-18 16:03] VITALS: BP 129/88
[2019-07-18] MEDS: MIRTAZAPINE 30 MG TABLET PO SCH (20:06)
[2019-07-18] MEDS: QUEtiapine FUMARATE 100 MG TABLET PO SCH (20:06)
[2019-07-19] MEDS: LORazepam 2 MG TABLET PO PRN ×3 (00:23→20:41)
[2019-07-19 00:27] VITALS: BP 135/98
[2019-07-19] MEDS: CEPHALEXIN MONOHYDRATE 500 MG CAPSULE PO SCH ×4 (08:20→20:10)
[2019-07-19] MEDS: METOPROLOL TARTRATE 25 MG TABLET PO SCH ×2 (08:20→16:27)
[2019-07-19] MEDS: GABAPENTIN 300 MG CAPSULE PO SCH ×3 (08:20→16:27)
[2019-07-19] MEDS: ClonazePAM 1 MG TABLET PO SCH ×3 (08:20→16:27)
[2019-07-19 08:29] VITALS: BP 142/75
[2019-07-19 16:11] VITALS: BP 140/95
[2019-07-19] MEDS: MIRTAZAPINE 30 MG TABLET PO SCH (20:11)
[2019-07-19] MEDS: QUEtiapine FUMARATE 100 MG TABLET PO SCH (20:11)
[2019-07-20 06:51] VITALS: BP 136/86
[2019-07-20 09:35] VITALS: BP 131/62
[2019-07-20] MEDS: CEPHALEXIN MONOHYDRATE 500 MG CAPSULE PO SCH ×4 (09:39→20:27)
[2019-07-20] MEDS: METOPROLOL TARTRATE 25 MG TABLET PO SCH ×2 (09:39→16:15)
[2019-07-20] MEDS: GABAPENTIN 300 MG CAPSULE PO SCH ×3 (09:39→16:20)
[2019-07-20] MEDS: ClonazePAM 1 MG TABLET PO SCH ×3 (09:39→16:14)
[2019-07-20] MEDS: LORazepam 2 MG TABLET PO PRN (11:28)
[2019-07-20 17:13] VITALS: BP 136/94
[2019-07-20] MEDS: MIRTAZAPINE 30 MG TABLET PO SCH (20:27)
[2019-07-20] MEDS: QUEtiapine FUMARATE 100 MG TABLET PO SCH (20:37)
[2019-07-21 00:23] VITALS: BP 139/89
[2019-07-21] MEDS: LORazepam 2 MG TABLET PO PRN (06:57)
[2019-07-21 08:43] VITALS: BP 128/71
[2019-07-21] MEDS: CEPHALEXIN MONOHYDRATE 500 MG CAPSULE PO SCH ×4 (09:15→20:31)
[2019-07-21] MEDS: METOPROLOL TARTRATE 25 MG TABLET PO SCH ×2 (09:15→16:00)
[2019-07-21] MEDS: GABAPENTIN 300 MG CAPSULE PO SCH ×3 (09:15→16:00)
[2019-07-21] MEDS: ClonazePAM 1 MG TABLET PO SCH ×3 (09:15→16:00)
[2019-07-21 16:35] VITALS: BP 131/90
[2019-07-21] MEDS: QUEtiapine FUMARATE 100 MG TABLET PO SCH (20:31)
[2019-07-21] MEDS: MIRTAZAPINE 30 MG TABLET PO SCH (20:45)
[2019-07-22 00:28] VITALS: BP 122/79
[2019-07-22] MEDS: LORazepam 2 MG TABLET PO PRN ×2 (06:52→14:44)
[2019-07-22] MEDS: METOPROLOL TARTRATE 25 MG TABLET PO SCH ×2 (08:26→16:01)
[2019-07-22] MEDS: CEPHALEXIN MONOHYDRATE 500 MG CAPSULE PO SCH ×4 (08:26→20:34)
[2019-07-22] MEDS: GABAPENTIN 300 MG CAPSULE PO SCH ×3 (08:26→16:01)
[2019-07-22] MEDS: ClonazePAM 1 MG TABLET PO SCH ×3 (08:26→16:00)
[2019-07-22 08:57] VITALS: BP 112/60
[2019-07-22 16:17] VITALS: BP 124/79
[2019-07-22] MEDS: MIRTAZAPINE 30 MG TABLET PO SCH (20:34)
[2019-07-22] MEDS: QUEtiapine FUMARATE 100 MG TABLET PO SCH (20:34)
[2019-07-23 00:33] VITALS: BP 137/89
[2019-07-23] MEDS: LORazepam 2 MG TABLET PO PRN (06:59)
[2019-07-23] MEDS: CEPHALEXIN MONOHYDRATE 500 MG CAPSULE PO SCH ×4 (08:32→20:19)
[2019-07-23] MEDS: ClonazePAM 1 MG TABLET PO SCH ×3 (08:32→16:34)
[2019-07-23] MEDS: MULTIVITAMINS WITH MINERALS, THERAPEUTIC TABLET PO SCH (08:32)
[2019-07-23] MEDS: GABAPENTIN 300 MG CAPSULE PO SCH ×3 (08:32→16:34)
[2019-07-23] MEDS: METOPROLOL TARTRATE 25 MG TABLET PO SCH ×2 (08:32→16:34)
[2019-07-23 08:37] VITALS: BP 133/71
[2019-07-23 16:40] VITALS: BP 130/90
[2019-07-23] MEDS: MIRTAZAPINE 30 MG TABLET PO SCH (20:19)
[2019-07-23] MEDS: QUEtiapine FUMARATE 100 MG TABLET PO SCH (20:19)
[2019-07-24 00:31] VITALS: BP 134/89
[2019-07-24] MEDS: LORazepam 2 MG TABLET PO PRN (06:43)
[2019-07-24 08:46] VITALS: BP 148/76
[2019-07-24] MEDS: GABAPENTIN 300 MG CAPSULE PO SCH ×3 (08:55→16:00)
[2019-07-24] MEDS: CEPHALEXIN MONOHYDRATE 500 MG CAPSULE PO SCH ×4 (08:55→20:11)
[2019-07-24] MEDS: ClonazePAM 1 MG TABLET PO SCH ×3 (08:55→16:00)
[2019-07-24] MEDS: METOPROLOL TARTRATE 25 MG TABLET PO SCH ×2 (08:55→16:00)
[2019-07-24] MEDS: MULTIVITAMINS WITH MINERALS, THERAPEUTIC TABLET PO SCH (08:55)
[2019-07-24 16:11] VITALS: BP 137/73
[2019-07-24] MEDS: MIRTAZAPINE 30 MG TABLET PO SCH (20:10)
[2019-07-24] MEDS: QUEtiapine FUMARATE 100 MG TABLET PO SCH (20:11)
[2019-07-25 02:09] VITALS: BP 128/89
[2019-07-25 08:48] VITALS: BP 125/73
[2019-07-25] MEDS: GABAPENTIN 300 MG CAPSULE PO SCH ×3 (08:56→16:04)
[2019-07-25] MEDS: METOPROLOL TARTRATE 25 MG TABLET PO SCH ×2 (08:56→16:04)
[2019-07-25] MEDS: MULTIVITAMINS WITH MINERALS, THERAPEUTIC TABLET PO SCH (08:56)
[2019-07-25] MEDS: ClonazePAM 1 MG TABLET PO SCH ×3 (08:56→16:04)
[2019-07-25] MEDS: CEPHALEXIN MONOHYDRATE 500 MG CAPSULE PO SCH ×2 (08:56→12:47)
[2019-07-25] MEDS: LORazepam 2 MG TABLET PO PRN ×3 (10:02→20:58)
[2019-07-25 16:00] VITALS: BP 137/77
[2019-07-25] MEDS: QUEtiapine FUMARATE 100 MG TABLET PO SCH (20:19)
[2019-07-25] MEDS: MIRTAZAPINE 30 MG TABLET PO SCH (20:19)
[2019-07-26 04:26] VITALS: BP 128/77
[2019-07-26] MEDS ORDERED: QUET100T PO (08:12)
[2019-07-26 09:00] VITALS: BP 134/77
[2019-07-26] MEDS: MULTIVITAMINS WITH MINERALS, THERAPEUTIC TABLET PO SCH (09:00)
[2019-07-26] MEDS: ClonazePAM 1 MG TABLET PO SCH (09:00)
[2019-07-26] MEDS: METOPROLOL TARTRATE 25 MG TABLET PO SCH (09:00)
[2019-07-26] MEDS: GABAPENTIN 300 MG CAPSULE PO SCH (09:00)
== END 2019-07-26 10:40 | disposition home or self-care (01) | DRG 750 ==
LOC: B2S 02:25
PROVIDERS: ADMIT Psychiatry & Neurology Psychiatry; ATTEND Psychiatry & Neurology Child & Adolescent Psychiatry
DX: F25.0 Schizoaffective disorder, bipolar type (principal); R45.851 Suicidal ideations; L03.115 Cellulitis of right lower limb; B18.2 Chronic viral hepatitis C; E78.5 Hyperlipidemia, unspecified; J44.9 Chronic obstructive pulmonary disease, unspecified; K21.9 Gastro-esophageal reflux disease without esophagitis; I10 Essential (primary) hypertension; F10.10 Alcohol abuse, uncomplicated; F19.10 Other psychoactive substance abuse, uncomplicated; F41.9 Anxiety disorder, unspecified
CPT/HCPCS: 83036; 86592; 87081

== ENCOUNTER 2019-07-29 02:19 | Emergency (ER) | payer MEDICAID ==
[~2019-07-29] VITALS: Ht 185.4 cm; Wt 125.0 kg
[~2019-07-29 02:19] MED LIST changes: +QUET100T PO; -QUET25TA PO
[2019-07-29 02:40] VITALS: BP 168/90
== END 2019-07-29 05:30 | disposition home or self-care (01) ==
LOC: EMS 02:21
DX: S09.90XA Unspecified injury of head, initial encounter (principal); I10 Essential (primary) hypertension; F31.9 Bipolar disorder, unspecified; Z85.841 Personal history of malignant neoplasm of brain; Z79.899 Other long term (current) drug therapy; Z98.890 Other specified postprocedural states; Y04.0XXA Assault by unarmed brawl or fight, initial encounter; Y93.89 Activity, other specified; Y92.89 Other specified places as the place of occurrence of the external cause; Y99.8 Other external cause status
CPT/HCPCS: 70450

== ENCOUNTER 2019-10-12 04:01 | Inpatient (IN) | payer MEDICAID ==
[~2019-10-12] VITALS: Ht 182.9 cm; Wt 129.8 kg
[2019-10-12] MEDS ORDERED: HALOPERIDOL 5 MG TABLET PO PRN (05:45)
[2019-10-12] MEDS ORDERED: ZOLPIDEM TARTRATE 10 MG TABLET PO PRN (05:45)
[2019-10-12 08:34] VITALS: BP 138/92
[2019-10-12] MEDS ORDERED: PERMETHRIN 5% 60 GM CREAM TP ONE (08:45)
[2019-10-12] MEDS ORDERED: METOPROLOL TARTRATE 25 MG TABLET PO SCH (09:00)
[2019-10-12] MEDS: LORazepam 1 MG TABLET PO PRN ×2 (09:09→14:51)
[2019-10-12] MEDS ORDERED: ALBUTEROL SULFATE HFA 90 MCG/PUFF 8 GM INHALER IH PRN (11:45)
[2019-10-12] MEDS ORDERED: PETROLATUM,WHITE 28 GM JELLY TP PRN (11:45)
[2019-10-12] MEDS ORDERED: NICOTINE 14 MG/24 HOUR PATCH TD PRN (11:45)
[2019-10-12] MEDS ORDERED: LOPERAMIDE HCL 2 MG CAPSULE PO PRN (11:45)
[2019-10-12] MEDS ORDERED: MAGNESIUM HYDROXIDE SUSPENSION 30 ML UDCUP PO PRN (11:45)
[2019-10-12] MEDS ORDERED: IBUPROFEN 400 MG TABLET PO PRN (11:45)
[2019-10-12] MEDS ORDERED: GuaiFENesin/D-METHORPHAN [SUGAR-FREE] 200-20MG/10 ML SYRUP UDCUP PO PRN (11:45)
[2019-10-12] MEDS ORDERED: ONDANSETRON HCL 4 MG TABLET PO PRN (11:45)
[2019-10-12] MEDS ORDERED: DOCUSATE SODIUM 100 MG CAPSULE PO PRN (11:45)
[2019-10-12] MEDS ORDERED: ACETAMINOPHEN 325 MG TABLET PO PRN (11:45)
[2019-10-12] MEDS ORDERED: CloNIDine HCL 0.1 MG TABLET PO PRN (11:45)
[2019-10-12] MEDS ORDERED: MAG HYDROX/AL HYDROX/SIMETH ES 30 ML SUSPENSION UDCUP PO PRN (11:45)
[2019-10-12] MEDS ORDERED: GABAPENTIN 300 MG CAPSULE PO SCH (13:00)
[2019-10-12] MEDS ORDERED: MIRTAZAPINE 30 MG TABLET PO SCH (21:00)
[2019-10-12] MEDS ORDERED: QUEtiapine FUMARATE 100 MG TABLET PO SCH (21:00)
== END 2019-10-12 15:20 | disposition home or self-care (01) | DRG 751 ==
LOC: B3A 06:33
PROVIDERS: ADMIT Psychiatry & Neurology Psychiatry; ATTEND Psychiatry & Neurology Child & Adolescent Psychiatry
DX: F29 Unspecified psychosis not due to a substance or known physiological condition (principal); R45.851 Suicidal ideations; G40.909 Epilepsy, unspecified, not intractable, without status epilepticus; B86 Scabies; E78.5 Hyperlipidemia, unspecified; I10 Essential (primary) hypertension; Z59.0 Homelessness; J44.9 Chronic obstructive pulmonary disease, unspecified; K21.9 Gastro-esophageal reflux disease without esophagitis

== ENCOUNTER 2019-10-16 23:26 | Inpatient (IN) | payer MEDICAID ==
[~2019-10-16] VITALS: Ht 182.9 cm; Wt 136.5 kg
[2019-10-16] MEDS ORDERED: METO25 PO (23:54)
[2019-10-16] MEDS ORDERED: MIRT30 PO (23:54)
[2019-10-16] MEDS ORDERED: GABA-531 PO (23:54)
[2019-10-16] MEDS ORDERED: QUET100T PO (23:54)
[2019-10-17] MEDS ORDERED: HALOPERIDOL 5 MG TABLET PO PRN
[2019-10-17] MEDS ORDERED: ZOLPIDEM TARTRATE 10 MG TABLET PO PRN
[2019-10-17 05:32] VITALS: BP 143/87
[2019-10-17] MEDS: LORazepam 2 MG TABLET PO PRN ×3 (05:46→20:29)
[2019-10-17] MEDS: CEPHALEXIN MONOHYDRATE 500 MG CAPSULE PO SCH ×3 (05:46→17:25)
[2019-10-17 08:27] LABS: BASOPHILS % (AUTO) 0.3 % (0.0-2.0); EOSINOPHILS % (AUTO) 2.2 % (1.0-6.0); HEMATOCRIT 39.2 % (41-53); HEMOGLOBIN 13.2 g/dL (13.5-17.5); LYMPHOCYTES # (AUTO) 2.9 K/uL (1.0-4.8); LYMPHOCYTES % (AUTO) 28.2 % (22.0-44.0); MEAN CORPUSCULAR HEMOGLOBIN 28.2 pg (26.0-34.0); MEAN CORPUSCULAR HGB CONC 33.6 G/dL (31.0-37.0); MEAN CORPUSCULAR VOLUME 84 fL (80-100); MONOCYTES # (AUTO) 1.4 K/uL (0.1-1.0); MONOCYTES % (AUTO) 13.5 % (2.0-9.0); NEUTROPHILS # (AUTO) 5.8 K/uL (1.8-7.7); NEUTROPHILS % (AUTO) 55.8 % (40.0-70.0); PLATELET COUNT (AUTO) 250 K/uL (150-450); RED BLOOD CELL COUNT(AUTO) 4.68 MIL/uL (4.50-5.90); RED CELL DISTRIBUTION WIDTH 15.7 % (11.5-14.5)
[2019-10-17 08:51] VITALS: BP 108/44
[2019-10-17 09:04] LABS: HEMOGLOBIN A1C 5.8 % (3.8-5.6)
[2019-10-17 09:47] LABS: ALANINE AMINOTRANSFERASE 36 U/L (12-78); ALBUMIN 3.1 g/dL (3.4-5.0); ALKALINE PHOSPHATASE 52 U/L (46-116); ANION GAP 6 mmol/L (8-16); ASPARTATE AMINOTRANSFERASE 22 U/L (15-37); BILIRUBIN,TOTAL 0.5 mg/dL (0.1-1.0); CALCIUM, TOTAL 8.4 mg/dL (8.8-10.5); CARBON DIOXIDE 28 mmol/L (22-29); CHLORIDE 101 mmol/L (98-107); CHOL/HDL RATIO 3.7 (4.2-7.3); CHOLESTEROL 129 mg/dL (131-200); CREATININE 0.78 mg/dL (0.60-1.30); FREE T4 (FREE THYROXINE) 1.11 ng/dL (0.76-1.46); GLOMERULAR FILTR. RATE CALC > 60 mL/min (>60); GLUCOSE,RANDOM 117 mg/dL (70-110); HDL CHOLESTEROL 35 mg/dL (40-60); LDL CHOL (CALC.) 84 mg/dL (0-130); POTASSIUM 4.6 mmol/L (3.5-5.1); SODIUM SERUM 135 mmol/L (136-145); THYROID STIMULATING HORMONE 2.27 uIU/mL (0.36-3.74); TOTAL PROTEIN, SERUM 6.6 g/dL (6.4-8.2); TRIGLYCERIDES 52 mg/dL (15-150); UREA NITROGEN, BLOOD 17 mg/dL (7-18)
[2019-10-17] MEDS ORDERED: ONDANSETRON HCL 4 MG TABLET PO PRN (11:00)
[2019-10-17] MEDS ORDERED: DOCUSATE SODIUM 100 MG CAPSULE PO PRN (11:00)
[2019-10-17] MEDS ORDERED: GuaiFENesin/D-METHORPHAN [SUGAR-FREE] 200-20MG/10 ML SYRUP UDCUP PO PRN (11:00)
[2019-10-17] MEDS ORDERED: ALBUTEROL SULFATE HFA 90 MCG/PUFF 8 GM INHALER IH PRN (11:00)
[2019-10-17] MEDS ORDERED: LOPERAMIDE HCL 2 MG CAPSULE PO PRN (11:00)
[2019-10-17] MEDS ORDERED: PETROLATUM,WHITE 28 GM JELLY TP PRN (11:00)
[2019-10-17] MEDS ORDERED: MAG HYDROX/AL HYDROX/SIMETH ES 30 ML SUSPENSION UDCUP PO PRN (11:00)
[2019-10-17] MEDS ORDERED: NICOTINE 14 MG/24 HOUR PATCH TD PRN (11:00)
[2019-10-17] MEDS ORDERED: MAGNESIUM HYDROXIDE SUSPENSION 30 ML UDCUP PO PRN (11:00)
[2019-10-17] MEDS ORDERED: ACETAMINOPHEN 325 MG TABLET PO PRN (11:00)
[2019-10-17] MEDS ORDERED: CloNIDine HCL 0.1 MG TABLET PO PRN (11:00)
[2019-10-17] MEDS: GABAPENTIN 300 MG CAPSULE PO SCH ×2 (14:04→17:25)
[2019-10-17 16:38] VITALS: BP 158/89
[2019-10-17] MEDS: METOPROLOL TARTRATE 25 MG TABLET PO SCH (17:25)
[2019-10-17] MEDS: MIRTAZAPINE 30 MG TABLET PO SCH (20:28)
[2019-10-17] MEDS: QUEtiapine FUMARATE 100 MG TABLET PO SCH (20:28)
[2019-10-17] MEDS ORDERED: DIVALPROEX SODIUM 125 MG DR TABLET PO SCH (21:00)
[2019-10-18 06:30] VITALS: BP 116/65
[2019-10-18 08:41] VITALS: BP 131/79
[2019-10-18] MEDS: GABAPENTIN 300 MG CAPSULE PO SCH ×3 (09:11→16:51)
[2019-10-18] MEDS: CEPHALEXIN MONOHYDRATE 500 MG CAPSULE PO SCH ×2 (09:11→16:51)
[2019-10-18] MEDS: METOPROLOL TARTRATE 25 MG TABLET PO SCH ×2 (09:11→16:51)
[2019-10-18 09:51] LABS: APPEARANCE,URINE CLEAR (CLEAR); BILIRUBIN,URINE NEGATIVE (NEGATIVE); GLUCOSE, URINE (UA) NEGATIVE (NEGATIVE); KETONES,URINE NEGATIVE (NEGATIVE); LEUKOCYTE ESTERASE ,URINE NEGATIVE (NEGATIVE); NITRATE,URINE NEGATIVE (NEGATIVE); OCCULT BLOOD,URINE NEGATIVE (NEGATIVE); PH,URINE 7.5 (5.0-8.0); PROTEIN,URINE NEGATIVE (NEGATIVE)
[2019-10-18 09:56] LABS: AMPHET/METH SCREEN,URINE NEGATIVE (NEGATIVE); BARBITURATE SCREEN, URINE NEGATIVE (NEGATIVE); BENZODIAZEPINES SCREEN,URINE NEGATIVE (NEGATIVE); CANNABINOID SCREEN,URINE NEGATIVE (NEGATIVE); COCAINE SCREEN,URINE NEGATIVE (NEGATIVE); METHADONE SCREEN, URINE NEGATIVE (NEGATIVE); OPIATE SCREEN,URINE NEGATIVE (NEGATIVE)
[2019-10-18 10:00] LABS: PHENCYCLIDINE SCREEN,URINE NEGATIVE (NEGATIVE)
[2019-10-18 16:13] VITALS: BP 126/80
[2019-10-18] MEDS: LORazepam 2 MG TABLET PO PRN (16:51)
[2019-10-18] MEDS: QUEtiapine FUMARATE 100 MG TABLET PO SCH (20:29)
[2019-10-18] MEDS: MIRTAZAPINE 30 MG TABLET PO SCH (20:29)
[2019-10-19 06:54] VITALS: BP 126/78
[2019-10-19] MEDS: LORazepam 2 MG TABLET PO PRN ×3 (08:24→20:42)
[2019-10-19] MEDS: CEPHALEXIN MONOHYDRATE 500 MG CAPSULE PO SCH ×2 (08:25→16:09)
[2019-10-19] MEDS: METOPROLOL TARTRATE 25 MG TABLET PO SCH ×2 (08:25→16:08)
[2019-10-19] MEDS: GABAPENTIN 300 MG CAPSULE PO SCH ×3 (08:25→16:08)
[2019-10-19 08:58] VITALS: BP 113/57
[2019-10-19] MEDS: MUPIROCIN CALCIUM 2% 22 GM OINTMENT NASAL SCH (16:09)
[2019-10-19 16:11] VITALS: BP 122/75
[2019-10-19] MEDS: CLINDAMYCIN HCL 300 MG CAPSULE PO SCH (17:00)
[2019-10-19] MEDS: BACITRACIN 28.4 GM OINTMENT TP SCH (17:02)
[2019-10-19] MEDS: QUEtiapine FUMARATE 100 MG TABLET PO SCH (20:42)
[2019-10-19] MEDS: MIRTAZAPINE 30 MG TABLET PO SCH (20:42)
[2019-10-20 04:40] VITALS: BP 115/80
[2019-10-20] MEDS: BACITRACIN 28.4 GM OINTMENT TP SCH ×2 (08:23→18:12)
[2019-10-20] MEDS: MUPIROCIN CALCIUM 2% 22 GM OINTMENT NASAL SCH ×2 (08:23→18:12)
[2019-10-20] MEDS: CLINDAMYCIN HCL 300 MG CAPSULE PO SCH ×3 (08:24→18:12)
[2019-10-20] MEDS: CEPHALEXIN MONOHYDRATE 500 MG CAPSULE PO SCH ×2 (08:24→18:12)
[2019-10-20] MEDS: METOPROLOL TARTRATE 25 MG TABLET PO SCH ×2 (08:25→18:12)
[2019-10-20] MEDS: GABAPENTIN 300 MG CAPSULE PO SCH ×3 (08:25→18:12)
[2019-10-20 08:48] VITALS: BP 133/69
[2019-10-20] MEDS: LORazepam 2 MG TABLET PO PRN ×2 (09:30→18:13)
[2019-10-20 16:07] VITALS: BP 119/70
[2019-10-20] MEDS: MIRTAZAPINE 30 MG TABLET PO SCH (20:08)
[2019-10-20] MEDS: QUEtiapine FUMARATE 100 MG TABLET PO SCH (20:08)
[2019-10-21 06:25] VITALS: BP 121/71
[2019-10-21 08:25] VITALS: BP 124/82
[2019-10-21] MEDS: GABAPENTIN 300 MG CAPSULE PO SCH ×3 (09:40→16:56)
[2019-10-21] MEDS: METOPROLOL TARTRATE 25 MG TABLET PO SCH ×2 (09:40→16:56)
[2019-10-21] MEDS: CEPHALEXIN MONOHYDRATE 500 MG CAPSULE PO SCH ×2 (09:40→16:56)
[2019-10-21] MEDS: CLINDAMYCIN HCL 300 MG CAPSULE PO SCH ×3 (09:41→16:56)
[2019-10-21] MEDS: BACITRACIN 28.4 GM OINTMENT TP SCH ×2 (10:39→16:57)
[2019-10-21] MEDS: MUPIROCIN CALCIUM 2% 22 GM OINTMENT NASAL SCH ×2 (10:39→16:57)
[2019-10-21] MEDS: LORazepam 2 MG TABLET PO PRN ×2 (10:59→18:30)
[2019-10-21 16:13] VITALS: BP 148/79
[2019-10-21] MEDS: MIRTAZAPINE 30 MG TABLET PO SCH (20:58)
[2019-10-21] MEDS: QUEtiapine FUMARATE 100 MG TABLET PO SCH (20:58)
[2019-10-22] MEDS: GABAPENTIN 300 MG CAPSULE PO SCH ×3 (08:42→17:15)
[2019-10-22] MEDS: METOPROLOL TARTRATE 25 MG TABLET PO SCH ×2 (08:42→17:15)
[2019-10-22] MEDS: CEPHALEXIN MONOHYDRATE 500 MG CAPSULE PO SCH ×2 (08:42→17:14)
[2019-10-22] MEDS: CLINDAMYCIN HCL 300 MG CAPSULE PO SCH ×3 (08:43→17:14)
[2019-10-22 08:55] VITALS: BP 117/66
[2019-10-22] MEDS: BACITRACIN 28.4 GM OINTMENT TP SCH ×2 (09:57→17:14)
[2019-10-22] MEDS: MUPIROCIN CALCIUM 2% 22 GM OINTMENT NASAL SCH ×2 (09:57→17:14)
[2019-10-22] MEDS: LORazepam 2 MG TABLET PO PRN ×2 (12:41→17:15)
[2019-10-22 16:04] VITALS: BP 135/77
[2019-10-22] MEDS: MIRTAZAPINE 30 MG TABLET PO SCH (20:54)
[2019-10-22] MEDS: QUEtiapine FUMARATE 100 MG TABLET PO SCH (20:54)
[2019-10-23 06:40] VITALS: BP 128/79
[2019-10-23 08:19] VITALS: BP 127/82
[2019-10-23] MEDS: GABAPENTIN 300 MG CAPSULE PO SCH ×3 (08:44→16:37)
[2019-10-23] MEDS: CEPHALEXIN MONOHYDRATE 500 MG CAPSULE PO SCH ×2 (08:44→16:37)
[2019-10-23] MEDS: METOPROLOL TARTRATE 25 MG TABLET PO SCH ×2 (08:44→16:37)
[2019-10-23] MEDS: CLINDAMYCIN HCL 300 MG CAPSULE PO SCH ×3 (08:45→16:37)
[2019-10-23] MEDS: BACITRACIN 28.4 GM OINTMENT TP SCH ×2 (08:46→16:36)
[2019-10-23] MEDS: MUPIROCIN CALCIUM 2% 22 GM OINTMENT NASAL SCH ×2 (08:46→16:36)
[2019-10-23] MEDS: LORazepam 2 MG TABLET PO PRN (09:41)
[2019-10-23 16:11] VITALS: BP 146/96
[2019-10-23] MEDS: HydrOXYzine PAMOATE 50 MG CAPSULE PO SCH (16:37)
[2019-10-23] MEDS: QUEtiapine FUMARATE 100 MG TABLET PO SCH (20:37)
[2019-10-23] MEDS: MIRTAZAPINE 30 MG TABLET PO SCH (20:37)
[2019-10-24 08:10] VITALS: BP 123/66
[2019-10-24] MEDS: BACITRACIN 28.4 GM OINTMENT TP SCH ×2 (09:00→16:42)
[2019-10-24] MEDS: METOPROLOL TARTRATE 25 MG TABLET PO SCH ×2 (09:24→16:41)
[2019-10-24] MEDS: MULTIVITAMINS WITH MINERALS, THERAPEUTIC TABLET PO SCH (09:24)
[2019-10-24] MEDS: HydrOXYzine PAMOATE 50 MG CAPSULE PO SCH ×2 (09:24→16:41)
[2019-10-24] MEDS: CLINDAMYCIN HCL 300 MG CAPSULE PO SCH ×3 (09:24→16:41)
[2019-10-24] MEDS: GABAPENTIN 300 MG CAPSULE PO SCH ×3 (09:25→16:41)
[2019-10-24] MEDS: CEPHALEXIN MONOHYDRATE 500 MG CAPSULE PO SCH ×2 (09:25→16:41)
[2019-10-24] MEDS: MUPIROCIN CALCIUM 2% 22 GM OINTMENT NASAL SCH ×2 (09:38→16:42)
[2019-10-24 16:07] VITALS: BP 111/75
[2019-10-24] MEDS: QUEtiapine FUMARATE 100 MG TABLET PO SCH (20:28)
[2019-10-24] MEDS: MIRTAZAPINE 30 MG TABLET PO SCH (20:28)
[2019-10-25 08:40] VITALS: BP 117/85
[2019-10-25] MEDS: MUPIROCIN CALCIUM 2% 22 GM OINTMENT NASAL SCH ×2 (10:44→16:11)
[2019-10-25] MEDS: MULTIVITAMINS WITH MINERALS, THERAPEUTIC TABLET PO SCH (10:45)
[2019-10-25] MEDS: METOPROLOL TARTRATE 25 MG TABLET PO SCH ×2 (10:45→16:12)
[2019-10-25] MEDS: CEPHALEXIN MONOHYDRATE 500 MG CAPSULE PO SCH ×2 (10:45→16:12)
[2019-10-25] MEDS: HydrOXYzine PAMOATE 50 MG CAPSULE PO SCH ×2 (10:45→16:11)
[2019-10-25] MEDS: GABAPENTIN 300 MG CAPSULE PO SCH ×3 (10:45→16:12)
[2019-10-25] MEDS: CLINDAMYCIN HCL 300 MG CAPSULE PO SCH ×3 (10:45→16:12)
[2019-10-25] MEDS: BACITRACIN 28.4 GM OINTMENT TP SCH ×2 (10:46→16:11)
[2019-10-25 17:12] VITALS: BP 128/66
[2019-10-25] MEDS: QUEtiapine FUMARATE 100 MG TABLET PO SCH (20:26)
[2019-10-25] MEDS: MIRTAZAPINE 30 MG TABLET PO SCH (20:26)
[2019-10-26] MEDS: IBUPROFEN 400 MG TABLET PO PRN (06:25)
[2019-10-26] MEDS: HydrOXYzine PAMOATE 50 MG CAPSULE PO SCH ×3 (08:52→16:38)
[2019-10-26] MEDS: METOPROLOL TARTRATE 25 MG TABLET PO SCH ×2 (08:52→16:31)
[2019-10-26] MEDS: GABAPENTIN 300 MG CAPSULE PO SCH ×3 (08:52→16:31)
[2019-10-26] MEDS: CLINDAMYCIN HCL 300 MG CAPSULE PO SCH ×3 (08:52→16:31)
[2019-10-26] MEDS: MULTIVITAMINS WITH MINERALS, THERAPEUTIC TABLET PO SCH (08:52)
[2019-10-26] MEDS: CEPHALEXIN MONOHYDRATE 500 MG CAPSULE PO SCH ×2 (08:52→16:31)
[2019-10-26] MEDS: BACITRACIN 28.4 GM OINTMENT TP SCH ×2 (09:00→16:34)
[2019-10-26] MEDS: MUPIROCIN CALCIUM 2% 22 GM OINTMENT NASAL SCH (09:43)
[2019-10-26 16:00] VITALS: BP 108/71
[2019-10-26] MEDS: MIRTAZAPINE 30 MG TABLET PO SCH (20:48)
[2019-10-26] MEDS: QUEtiapine FUMARATE 100 MG TABLET PO SCH (20:48)
[2019-10-27 08:25] VITALS: BP 144/77
[2019-10-27] MEDS: GABAPENTIN 300 MG CAPSULE PO SCH ×3 (09:43→16:25)
[2019-10-27] MEDS: MULTIVITAMINS WITH MINERALS, THERAPEUTIC TABLET PO SCH (09:43)
[2019-10-27] MEDS: METOPROLOL TARTRATE 25 MG TABLET PO SCH ×2 (09:43→16:25)
[2019-10-27] MEDS: BACITRACIN 28.4 GM OINTMENT TP SCH ×2 (09:44→16:25)
[2019-10-27] MEDS: CLINDAMYCIN HCL 300 MG CAPSULE PO SCH ×3 (09:44→16:25)
[2019-10-27] MEDS: HydrOXYzine PAMOATE 50 MG CAPSULE PO SCH ×2 (09:49→16:25)
[2019-10-27 16:00] VITALS: BP 138/78
[2019-10-27] MEDS: QUEtiapine FUMARATE 100 MG TABLET PO SCH (20:17)
[2019-10-27] MEDS: MIRTAZAPINE 30 MG TABLET PO SCH (20:17)
[2019-10-28] MEDS ORDERED: HYDR50CA9 PO (06:00)
[2019-10-28 08:38] VITALS: BP 131/74
[2019-10-28] MEDS: BACITRACIN 28.4 GM OINTMENT TP SCH ×2 (09:00→16:34)
[2019-10-28] MEDS: MULTIVITAMINS WITH MINERALS, THERAPEUTIC TABLET PO SCH (09:02)
[2019-10-28] MEDS: HydrOXYzine PAMOATE 50 MG CAPSULE PO SCH ×2 (09:02→16:34)
[2019-10-28] MEDS: METOPROLOL TARTRATE 25 MG TABLET PO SCH ×2 (09:02→16:34)
[2019-10-28] MEDS: GABAPENTIN 300 MG CAPSULE PO SCH ×3 (09:03→16:34)
[2019-10-28] MEDS: CLINDAMYCIN HCL 300 MG CAPSULE PO SCH ×3 (09:03→16:34)
[2019-10-28] MEDS: IBUPROFEN 400 MG TABLET PO PRN (15:19)
[2019-10-28 16:09] VITALS: BP 166/83
[2019-10-28] MEDS: QUEtiapine FUMARATE 100 MG TABLET PO SCH (20:31)
[2019-10-28] MEDS: MIRTAZAPINE 30 MG TABLET PO SCH (20:31)
[2019-10-29 00:09] VITALS: BP 109/68
[2019-10-29 08:21] VITALS: BP 126/80
[2019-10-29] MEDS: HydrOXYzine PAMOATE 50 MG CAPSULE PO SCH ×2 (09:00→09:22)
[2019-10-29] MEDS: BACITRACIN 28.4 GM OINTMENT TP SCH (09:00)
[2019-10-29] MEDS: CLINDAMYCIN HCL 300 MG CAPSULE PO SCH ×2 (09:00→13:00)
[2019-10-29] MEDS: METOPROLOL TARTRATE 25 MG TABLET PO SCH (09:22)
[2019-10-29] MEDS: GABAPENTIN 300 MG CAPSULE PO SCH ×2 (09:22→12:53)
[2019-10-29] MEDS: MULTIVITAMINS WITH MINERALS, THERAPEUTIC TABLET PO SCH (09:23)
[2019-10-29] MEDS ORDERED: CLIN300C3 PO (13:22)
== END 2019-10-29 14:31 | disposition home or self-care (01) | DRG 750 ==
LOC: B3A 10-17
PROVIDERS: ADMIT Psychiatry & Neurology Child & Adolescent Psychiatry; ATTEND Psychiatry & Neurology Child & Adolescent Psychiatry
DX: F25.1 Schizoaffective disorder, depressive type (principal); R45.851 Suicidal ideations; G40.909 Epilepsy, unspecified, not intractable, without status epilepticus; Z59.0 Homelessness; I10 Essential (primary) hypertension; K21.9 Gastro-esophageal reflux disease without esophagitis; J44.9 Chronic obstructive pulmonary disease, unspecified; E78.5 Hyperlipidemia, unspecified; Z91.19 Patient's noncompliance with other medical treatment and regimen; L03.113 Cellulitis of right upper limb; F10.10 Alcohol abuse, uncomplicated; F41.9 Anxiety disorder, unspecified
CPT/HCPCS: 80307; 83036; 84439; 84443; 87081

== ENCOUNTER 2019-10-31 05:14 | Inpatient (IN) | payer MEDICAID ==
[~2019-10-31] VITALS: Ht 182.9 cm; Wt 141.5 kg
[~2019-10-31 05:14] MED LIST changes: +CLIN300C3 PO; +HYDR50CA9 PO
[2019-10-31 05:52] LABS: BASOPHILS % (AUTO) 0.5 % (0.0-2.0); EOSINOPHILS % (AUTO) 1.7 % (1.0-6.0); HEMATOCRIT 42.4 % (41-53); HEMOGLOBIN 14.8 g/dL (13.5-17.5); LYMPHOCYTES # (AUTO) 3.3 K/uL (1.0-4.8); LYMPHOCYTES % (AUTO) 29.3 % (22.0-44.0); MEAN CORPUSCULAR HEMOGLOBIN 29.1 pg (26.0-34.0); MEAN CORPUSCULAR HGB CONC 34.9 G/dL (31.0-37.0); MEAN CORPUSCULAR VOLUME 84 fL (80-100); MONOCYTES # (AUTO) 1.4 K/uL (0.1-1.0); MONOCYTES % (AUTO) 12.3 % (2.0-9.0); NEUTROPHILS # (AUTO) 6.3 K/uL (1.8-7.7); NEUTROPHILS % (AUTO) 56.2 % (40.0-70.0); PLATELET COUNT (AUTO) 365 K/uL (150-450); RED BLOOD CELL COUNT(AUTO) 5.07 MIL/uL (4.50-5.90); RED CELL DISTRIBUTION WIDTH 15.7 % (11.5-14.5)
[2019-10-31] MEDS ORDERED: BACITRACIN 0.9 GM PACKET OINTMENT TP ONE (06:00)
[2019-10-31 06:04] LABS: ANION GAP 5 mmol/L (8-16); CALCIUM, TOTAL 9.1 mg/dL (8.8-10.5); CARBON DIOXIDE 30 mmol/L (22-29); CHLORIDE 100 mmol/L (98-107); CREATININE 1.08 mg/dL (0.60-1.30); GLOMERULAR FILTR. RATE CALC > 60 mL/min (>60); GLUCOSE,RANDOM 132 mg/dL (70-110); POTASSIUM 4.7 mmol/L (3.5-5.1); SODIUM SERUM 135 mmol/L (136-145); UREA NITROGEN, BLOOD 21 mg/dL (7-18)
[2019-10-31 06:11] LABS: ALANINE AMINOTRANSFERASE 29 U/L (12-78); ALBUMIN 3.7 g/dL (3.4-5.0); ALKALINE PHOSPHATASE 64 U/L (46-116); ASPARTATE AMINOTRANSFERASE 26 U/L (15-37); BILIRUBIN,TOTAL 0.7 mg/dL (0.1-1.0); TOTAL PROTEIN, SERUM 8.5 g/dL (6.4-8.2)
[2019-10-31 07:52] LABS: AMPHET/METH SCREEN,URINE POSITIVE (NEGATIVE); BARBITURATE SCREEN, URINE NEGATIVE (NEGATIVE); BENZODIAZEPINES SCREEN,URINE NEGATIVE (NEGATIVE); CANNABINOID SCREEN,URINE NEGATIVE (NEGATIVE); COCAINE SCREEN,URINE NEGATIVE (NEGATIVE); METHADONE SCREEN, URINE NEGATIVE (NEGATIVE); OPIATE SCREEN,URINE POSITIVE (NEGATIVE)
[2019-10-31 07:54] LABS: PHENCYCLIDINE SCREEN,URINE NEGATIVE (NEGATIVE)
[2019-10-31] MEDS ORDERED: ACETAMINOPHEN 500 MG TABLET PO ONE (08:45)
[2019-10-31] MEDS ORDERED: MAG HYDROX/AL HYDROX/SIMETH 30 ML SUSP UDCUP PO ONE (08:45)
[2019-10-31] MEDS ORDERED: QUEtiapine FUMARATE 100 MG TABLET PO ONE (08:45)
[2019-10-31] MEDS ORDERED: MIRTAZAPINE 30 MG TABLET PO ONE (08:45)
[2019-10-31] MEDS ORDERED: LORazepam 2 MG TABLET PO PRN (10:30)
[2019-10-31] MEDS ORDERED: HALOPERIDOL 5 MG TABLET PO PRN (10:30)
[2019-10-31] MEDS ORDERED: ZOLPIDEM TARTRATE 10 MG TABLET PO PRN (10:30)
[2019-10-31 10:36] VITALS: BP 130/74
[2019-10-31] MEDS ORDERED: PERMETHRIN 5% 60 GM CREAM TP ONE (12:45)
[2019-10-31] MEDS ORDERED: QUEtiapine FUMARATE 25 MG TABLET PO PRN (12:45)
[2019-10-31] MEDS: GABAPENTIN 300 MG CAPSULE PO SCH ×2 (13:48→16:12)
[2019-10-31] MEDS: HydrOXYzine PAMOATE 50 MG CAPSULE PO PRN (16:12)
[2019-10-31] MEDS ORDERED: ONDANSETRON HCL 4 MG TABLET PO PRN (19:30)
[2019-10-31] MEDS ORDERED: NICOTINE 14 MG/24 HOUR PATCH TD PRN (19:30)
[2019-10-31] MEDS ORDERED: GuaiFENesin/D-METHORPHAN [SUGAR-FREE] 200-20MG/10 ML SYRUP UDCUP PO PRN (19:30)
[2019-10-31] MEDS ORDERED: ALBUTEROL SULFATE HFA 90 MCG/PUFF 8 GM INHALER IH PRN (19:30)
[2019-10-31] MEDS ORDERED: PETROLATUM,WHITE 28 GM JELLY TP PRN (19:30)
[2019-10-31] MEDS ORDERED: LOPERAMIDE HCL 2 MG CAPSULE PO PRN (19:30)
[2019-10-31] MEDS ORDERED: ACETAMINOPHEN 325 MG TABLET PO PRN (19:30)
[2019-10-31] MEDS ORDERED: CloNIDine HCL 0.1 MG TABLET PO PRN (19:30)
[2019-10-31] MEDS ORDERED: QUEtiapine FUMARATE 100 MG TABLET PO SCH (21:00)
[2019-10-31] MEDS: MIRTAZAPINE 30 MG TABLET PO SCH (21:10)
[2019-10-31] MEDS: QUEtiapine FUMARATE 50 MG ER TABLET PO SCH (21:10)
[2019-11-01 03:19] VITALS: BP 128/79
[2019-11-01 07:45] LABS: BASOPHILS % (AUTO) 0.5 % (0.0-2.0); EOSINOPHILS % (AUTO) 4.1 % (1.0-6.0); HEMATOCRIT 38.6 % (41-53); HEMOGLOBIN 13.2 g/dL (13.5-17.5); MEAN CORPUSCULAR HEMOGLOBIN 28.8 pg (26.0-34.0); MEAN CORPUSCULAR HGB CONC 34.1 G/dL (31.0-37.0); MEAN CORPUSCULAR VOLUME 84 fL (80-100); MONOCYTES # (AUTO) 0.8 K/uL (0.1-1.0); MONOCYTES % (AUTO) 12.6 % (2.0-9.0); NEUTROPHILS # (AUTO) 2.5 K/uL (1.8-7.7); NEUTROPHILS % (AUTO) 37.8 % (40.0-70.0); PLATELET COUNT (AUTO) 247 K/uL (150-450); RED BLOOD CELL COUNT(AUTO) 4.58 MIL/uL (4.50-5.90); RED CELL DISTRIBUTION WIDTH 15.1 % (11.5-14.5)
[2019-11-01 08:18] LABS: ALANINE AMINOTRANSFERASE 27 U/L (12-78); ALBUMIN 2.9 g/dL (3.4-5.0); ALKALINE PHOSPHATASE 54 U/L (46-116); ANION GAP 9 mmol/L (8-16); ASPARTATE AMINOTRANSFERASE 22 U/L (15-37); BILIRUBIN,TOTAL 0.4 mg/dL (0.1-1.0); CALCIUM, TOTAL 8.1 mg/dL (8.8-10.5); CARBON DIOXIDE 26 mmol/L (22-29); CHLORIDE 105 mmol/L (98-107); CHOL/HDL RATIO 4.6 (4.2-7.3); CHOLESTEROL 115 mg/dL (131-200); CREATININE 0.99 mg/dL (0.60-1.30); GLOMERULAR FILTR. RATE CALC > 60 mL/min (>60); GLUCOSE,RANDOM 121 mg/dL (70-110); HDL CHOLESTEROL 25 mg/dL (40-60); LDL CHOL (CALC.) 59 mg/dL (0-130); POTASSIUM 4.2 mmol/L (3.5-5.1); SODIUM SERUM 140 mmol/L (136-145); TOTAL PROTEIN, SERUM 6.8 g/dL (6.4-8.2); TRIGLYCERIDES 153 mg/dL (15-150); UREA NITROGEN, BLOOD 18 mg/dL (7-18)
[2019-11-01] MEDS ORDERED: BACITRACIN 28.4 GM OINTMENT TP SCH (09:00)
[2019-11-01] MEDS: GABAPENTIN 300 MG CAPSULE PO SCH ×3 (09:06→16:34)
[2019-11-01 09:44] LABS: THYROID STIMULATING HORMONE 4.21 uIU/mL (0.36-3.74)
[2019-11-01 10:05] LABS: VALPROIC ACID < 3 mcg/mL (50-100)
[2019-11-01 10:12] VITALS: BP 134/78
[2019-11-01] MEDS: CLINDAMYCIN HCL 300 MG CAPSULE PO SCH ×2 (13:00→16:34)
[2019-11-01 16:00] VITALS: BP 146/85
[2019-11-01] MEDS: CEPHALEXIN MONOHYDRATE 500 MG CAPSULE PO SCH (16:34)
[2019-11-01] MEDS: MAG HYDROX/AL HYDROX/SIMETH ES 30 ML SUSPENSION UDCUP PO PRN (19:06)
[2019-11-01] MEDS: MIRTAZAPINE 30 MG TABLET PO SCH (20:28)
[2019-11-01] MEDS: QUEtiapine FUMARATE 50 MG ER TABLET PO SCH (20:28)
[2019-11-02 01:49] VITALS: BP 145/95
[2019-11-02 08:35] VITALS: BP 132/87
[2019-11-02] MEDS: CEPHALEXIN MONOHYDRATE 500 MG CAPSULE PO SCH ×2 (08:48→16:53)
[2019-11-02] MEDS: CLINDAMYCIN HCL 300 MG CAPSULE PO SCH ×3 (08:48→16:53)
[2019-11-02] MEDS: GABAPENTIN 300 MG CAPSULE PO SCH ×3 (08:48→16:53)
[2019-11-02 16:27] VITALS: BP 133/60
[2019-11-02] MEDS: QUEtiapine FUMARATE 50 MG ER TABLET PO SCH (20:44)
[2019-11-02] MEDS: MIRTAZAPINE 30 MG TABLET PO SCH (20:44)
[2019-11-02 21:48] VITALS: BP 142/76
[2019-11-02] MEDS: IBUPROFEN 400 MG TABLET PO PRN (21:48)
[2019-11-03 06:13] VITALS: BP 138/88
[2019-11-03] MEDS: GABAPENTIN 300 MG CAPSULE PO SCH ×3 (08:55→17:01)
[2019-11-03] MEDS: CLINDAMYCIN HCL 300 MG CAPSULE PO SCH ×3 (08:55→17:01)
[2019-11-03] MEDS: CEPHALEXIN MONOHYDRATE 500 MG CAPSULE PO SCH ×2 (08:55→17:00)
[2019-11-03 16:09] VITALS: BP 131/81
[2019-11-03] MEDS: QUEtiapine FUMARATE 50 MG ER TABLET PO SCH (20:44)
[2019-11-03] MEDS: MIRTAZAPINE 30 MG TABLET PO SCH (20:44)
[2019-11-03] MEDS: IBUPROFEN 400 MG TABLET PO PRN (21:01)
[2019-11-04 00:11] VITALS: BP 143/72
[2019-11-04] MEDS: GABAPENTIN 300 MG CAPSULE PO SCH ×3 (08:50→17:09)
[2019-11-04] MEDS: CLINDAMYCIN HCL 300 MG CAPSULE PO SCH ×3 (08:50→17:09)
[2019-11-04] MEDS: CEPHALEXIN MONOHYDRATE 500 MG CAPSULE PO SCH ×2 (08:50→17:09)
[2019-11-04 09:20] VITALS: BP 140/83
[2019-11-04] MEDS: MAG HYDROX/AL HYDROX/SIMETH ES 30 ML SUSPENSION UDCUP PO PRN (14:33)
[2019-11-04 16:13] VITALS: BP 133/81
[2019-11-04] MEDS: IBUPROFEN 400 MG TABLET PO PRN (17:10)
[2019-11-04] MEDS: DOCUSATE SODIUM 100 MG CAPSULE PO PRN (17:10)
[2019-11-04 18:10] VITALS: BP 134/78
[2019-11-04] MEDS: QUEtiapine FUMARATE 50 MG ER TABLET PO SCH (20:42)
[2019-11-04] MEDS: MIRTAZAPINE 30 MG TABLET PO SCH (20:42)
[2019-11-05 03:43] VITALS: BP 132/87
[2019-11-05] MEDS: GABAPENTIN 300 MG CAPSULE PO SCH ×3 (09:38→16:48)
[2019-11-05] MEDS: CEPHALEXIN MONOHYDRATE 500 MG CAPSULE PO SCH ×2 (09:38→16:49)
[2019-11-05] MEDS: CLINDAMYCIN HCL 300 MG CAPSULE PO SCH ×3 (09:39→16:49)
[2019-11-05 17:25] VITALS: BP 121/79
[2019-11-05] MEDS: QUEtiapine FUMARATE 50 MG ER TABLET PO SCH (20:50)
[2019-11-05] MEDS: MIRTAZAPINE 30 MG TABLET PO SCH (20:50)
[2019-11-06 00:12] VITALS: BP 126/81
[2019-11-06] MEDS: IBUPROFEN 400 MG TABLET PO PRN ×2 (00:19→21:20)
[2019-11-06 08:10] VITALS: BP 109/64
[2019-11-06] MEDS: GABAPENTIN 300 MG CAPSULE PO SCH ×3 (08:49→16:42)
[2019-11-06] MEDS: CLINDAMYCIN HCL 300 MG CAPSULE PO SCH ×3 (08:50→16:42)
[2019-11-06] MEDS: CEPHALEXIN MONOHYDRATE 500 MG CAPSULE PO SCH ×2 (08:50→16:41)
[2019-11-06] MEDS: DOCUSATE SODIUM 100 MG CAPSULE PO PRN (10:04)
[2019-11-06] MEDS: MAGNESIUM HYDROXIDE SUSPENSION 30 ML UDCUP PO PRN (10:05)
[2019-11-06 16:45] VITALS: BP 123/77
[2019-11-06] MEDS: MIRTAZAPINE 30 MG TABLET PO SCH (21:11)
[2019-11-06] MEDS: QUEtiapine FUMARATE 50 MG ER TABLET PO SCH (21:11)
[2019-11-06] MEDS: MAG HYDROX/AL HYDROX/SIMETH ES 30 ML SUSPENSION UDCUP PO PRN (21:24)
[2019-11-07 04:56] VITALS: BP 142/89
[2019-11-07] MEDS: CLINDAMYCIN HCL 300 MG CAPSULE PO SCH ×3 (08:08→16:19)
[2019-11-07] MEDS: CEPHALEXIN MONOHYDRATE 500 MG CAPSULE PO SCH ×2 (08:08→16:19)
[2019-11-07] MEDS: GABAPENTIN 300 MG CAPSULE PO SCH ×3 (08:08→16:19)
[2019-11-07 08:31] VITALS: BP 116/59
[2019-11-07 16:08] VITALS: BP 139/83
[2019-11-07] MEDS: MIRTAZAPINE 30 MG TABLET PO SCH (20:19)
[2019-11-07] MEDS: QUEtiapine FUMARATE 50 MG ER TABLET PO SCH (20:19)
[2019-11-07] MEDS: MAG HYDROX/AL HYDROX/SIMETH ES 30 ML SUSPENSION UDCUP PO PRN (20:43)
[2019-11-08 00:43] VITALS: BP 132/60
[2019-11-08] MEDS: CEPHALEXIN MONOHYDRATE 500 MG CAPSULE PO SCH ×2 (08:13→16:19)
[2019-11-08] MEDS: CLINDAMYCIN HCL 300 MG CAPSULE PO SCH ×3 (08:13→16:19)
[2019-11-08] MEDS: GABAPENTIN 300 MG CAPSULE PO SCH ×3 (08:13→16:19)
[2019-11-08 08:33] VITALS: BP 115/67
[2019-11-08] MEDS: IBUPROFEN 400 MG TABLET PO PRN (10:52)
[2019-11-08 16:10] VITALS: BP 137/83
[2019-11-08] MEDS: MIRTAZAPINE 30 MG TABLET PO SCH (20:23)
[2019-11-08] MEDS: QUEtiapine FUMARATE 50 MG ER TABLET PO SCH (20:23)
[2019-11-09 00:13] VITALS: BP 139/81
[2019-11-09 08:13] VITALS: BP 121/62
[2019-11-09] MEDS: GABAPENTIN 300 MG CAPSULE PO SCH ×3 (09:07→16:10)
[2019-11-09] MEDS: CLINDAMYCIN HCL 300 MG CAPSULE PO SCH ×3 (09:07→16:10)
[2019-11-09] MEDS: CEPHALEXIN MONOHYDRATE 500 MG CAPSULE PO SCH ×2 (09:07→16:10)
[2019-11-09] MEDS: IBUPROFEN 400 MG TABLET PO PRN (11:11)
[2019-11-09 16:00] VITALS: BP 131/82
[2019-11-09] MEDS: MIRTAZAPINE 30 MG TABLET PO SCH (20:25)
[2019-11-09] MEDS: QUEtiapine FUMARATE 50 MG ER TABLET PO SCH (20:25)
[2019-11-10 02:20] VITALS: BP 122/78
[2019-11-10 03:01] VITALS: BP 127/73
[2019-11-10] MEDS: IBUPROFEN 400 MG TABLET PO PRN ×3 (03:05→20:44)
[2019-11-10] MEDS: HydrOXYzine PAMOATE 50 MG CAPSULE PO PRN (03:15)
[2019-11-10 08:22] VITALS: BP 129/78
[2019-11-10] MEDS: CLINDAMYCIN HCL 300 MG CAPSULE PO SCH ×3 (08:41→16:18)
[2019-11-10] MEDS: GABAPENTIN 300 MG CAPSULE PO SCH ×3 (08:41→16:18)
[2019-11-10] MEDS: CEPHALEXIN MONOHYDRATE 500 MG CAPSULE PO SCH ×2 (08:41→16:18)
[2019-11-10 16:00] VITALS: BP 138/74
[2019-11-10] MEDS: MIRTAZAPINE 30 MG TABLET PO SCH (20:44)
[2019-11-10] MEDS: QUEtiapine FUMARATE 50 MG ER TABLET PO SCH (20:44)
[2019-11-11 05:43] VITALS: BP 114/70
[2019-11-11] MEDS: GABAPENTIN 300 MG CAPSULE PO SCH ×3 (08:44→16:45)
[2019-11-11] MEDS: CEPHALEXIN MONOHYDRATE 500 MG CAPSULE PO SCH (08:45)
[2019-11-11] MEDS: CLINDAMYCIN HCL 300 MG CAPSULE PO SCH (08:46)
[2019-11-11] MEDS: IBUPROFEN 400 MG TABLET PO PRN ×2 (09:51→20:27)
[2019-11-11] MEDS: MAGNESIUM HYDROXIDE SUSPENSION 30 ML UDCUP PO PRN (09:51)
[2019-11-11 16:10] VITALS: BP 144/78
[2019-11-11] MEDS: DOCUSATE SODIUM 100 MG CAPSULE PO PRN (17:36)
[2019-11-11] MEDS: MIRTAZAPINE 30 MG TABLET PO SCH (20:27)
[2019-11-11] MEDS: QUEtiapine FUMARATE 50 MG ER TABLET PO SCH (20:27)
[2019-11-12 02:08] VITALS: BP 130/81
[2019-11-12] MEDS: IBUPROFEN 400 MG TABLET PO PRN ×2 (07:07→13:58)
[2019-11-12] MEDS: GABAPENTIN 300 MG CAPSULE PO SCH ×3 (08:33→18:11)
[2019-11-12 09:53] VITALS: BP 141/85
[2019-11-12 16:14] VITALS: BP 137/84
[2019-11-12] MEDS: DOCUSATE SODIUM 100 MG CAPSULE PO PRN (18:12)
[2019-11-12] MEDS: MAGNESIUM HYDROXIDE SUSPENSION 30 ML UDCUP PO PRN (18:15)
[2019-11-12] MEDS: MIRTAZAPINE 30 MG TABLET PO SCH (21:18)
[2019-11-12] MEDS: QUEtiapine FUMARATE 50 MG ER TABLET PO SCH (21:18)
[2019-11-13 00:55] VITALS: BP 148/84
[2019-11-13 08:32] VITALS: BP 119/80
[2019-11-13] MEDS: GABAPENTIN 300 MG CAPSULE PO SCH ×3 (09:08→17:34)
[2019-11-13] MEDS: ESCITALOPRAM OXALATE 10 MG TABLET PO SCH (10:03)
[2019-11-13] MEDS: DOCUSATE SODIUM 100 MG CAPSULE PO PRN (12:54)
[2019-11-13 17:03] VITALS: BP 139/83
[2019-11-13] MEDS: MAGNESIUM HYDROXIDE SUSPENSION 30 ML UDCUP PO PRN (17:46)
[2019-11-13] MEDS: QUEtiapine FUMARATE 50 MG ER TABLET PO SCH (20:42)
[2019-11-13] MEDS: MIRTAZAPINE 30 MG TABLET PO SCH (20:42)
[2019-11-14 02:47] VITALS: BP 132/82
[2019-11-14 08:37] VITALS: BP 126/66
[2019-11-14] MEDS: ESCITALOPRAM OXALATE 10 MG TABLET PO SCH (09:00)
[2019-11-14] MEDS: GABAPENTIN 300 MG CAPSULE PO SCH ×3 (09:23→16:17)
[2019-11-14] MEDS: DOCUSATE SODIUM 100 MG CAPSULE PO PRN (13:45)
[2019-11-14 16:12] VITALS: BP 115/74
[2019-11-14] MEDS: QUEtiapine FUMARATE 50 MG ER TABLET PO SCH (20:58)
[2019-11-14] MEDS: MIRTAZAPINE 30 MG TABLET PO SCH (20:58)
[2019-11-15 01:01] VITALS: BP 130/66
[2019-11-15 08:39] VITALS: BP 150/95
[2019-11-15] MEDS: ESCITALOPRAM OXALATE 10 MG TABLET PO SCH (09:12)
[2019-11-15] MEDS: GABAPENTIN 300 MG CAPSULE PO SCH ×3 (09:13→16:25)
[2019-11-15] MEDS: MAGNESIUM HYDROXIDE SUSPENSION 30 ML UDCUP PO PRN (11:47)
[2019-11-15] MEDS: MAG HYDROX/AL HYDROX/SIMETH ES 30 ML SUSPENSION UDCUP PO PRN (16:49)
[2019-11-15 17:12] VITALS: BP 121/86
[2019-11-15] MEDS: MIRTAZAPINE 30 MG TABLET PO SCH (21:19)
[2019-11-15] MEDS: QUEtiapine FUMARATE 50 MG ER TABLET PO SCH (21:20)
[2019-11-15] MEDS: IBUPROFEN 400 MG TABLET PO PRN (21:37)
[2019-11-16 01:55] VITALS: BP 148/97
[2019-11-16] MEDS: ESCITALOPRAM OXALATE 10 MG TABLET PO SCH (08:35)
[2019-11-16] MEDS: IBUPROFEN 400 MG TABLET PO PRN (08:35)
[2019-11-16] MEDS: GABAPENTIN 300 MG CAPSULE PO SCH ×3 (08:35→16:17)
[2019-11-16 09:11] VITALS: BP 148/93
[2019-11-16 16:11] VITALS: BP 135/72
[2019-11-16] MEDS: QUEtiapine FUMARATE 50 MG ER TABLET PO SCH (21:00)
[2019-11-16] MEDS: MIRTAZAPINE 30 MG TABLET PO SCH (21:00)
[2019-11-17 04:14] VITALS: BP 145/98
[2019-11-17 08:09] VITALS: BP 143/89
[2019-11-17] MEDS: ESCITALOPRAM OXALATE 10 MG TABLET PO SCH (08:55)
[2019-11-17] MEDS: GABAPENTIN 300 MG CAPSULE PO SCH ×3 (08:55→16:37)
[2019-11-17 10:08] VITALS: BP 138/78
[2019-11-17] MEDS: IBUPROFEN 400 MG TABLET PO PRN (10:10)
[2019-11-17 11:10] VITALS: BP 140/82
[2019-11-17 16:09] VITALS: BP 135/75
[2019-11-17] MEDS: QUEtiapine FUMARATE 50 MG ER TABLET PO SCH (20:40)
[2019-11-17] MEDS: MIRTAZAPINE 30 MG TABLET PO SCH (20:40)
[2019-11-18 06:30] VITALS: BP 139/87
[2019-11-18 08:11] VITALS: BP 115/75
[2019-11-18] MEDS: ESCITALOPRAM OXALATE 10 MG TABLET PO SCH (08:53)
[2019-11-18] MEDS: GABAPENTIN 300 MG CAPSULE PO SCH ×3 (08:53→16:13)
[2019-11-18 16:24] VITALS: BP 140/78
[2019-11-18] MEDS: QUEtiapine FUMARATE 50 MG ER TABLET PO SCH (20:42)
[2019-11-18] MEDS: MIRTAZAPINE 30 MG TABLET PO SCH (20:42)
[2019-11-18] MEDS: MAG HYDROX/AL HYDROX/SIMETH ES 30 ML SUSPENSION UDCUP PO PRN (21:25)
[2019-11-19 04:32] VITALS: BP 154/81
[2019-11-19] MEDS: ESCITALOPRAM OXALATE 10 MG TABLET PO SCH (08:28)
[2019-11-19] MEDS: GABAPENTIN 300 MG CAPSULE PO SCH ×3 (08:28→16:13)
[2019-11-19] MEDS: IBUPROFEN 400 MG TABLET PO PRN ×2 (09:57→18:01)
[2019-11-19 16:00] VITALS: BP 132/90
[2019-11-19] MEDS: HydrOXYzine PAMOATE 50 MG CAPSULE PO PRN (17:01)
[2019-11-19] MEDS: MIRTAZAPINE 30 MG TABLET PO SCH (20:56)
[2019-11-19] MEDS: QUEtiapine FUMARATE 50 MG ER TABLET PO SCH (20:56)
[2019-11-20 05:08] VITALS: BP 132/77
[2019-11-20] MEDS: GABAPENTIN 300 MG CAPSULE PO SCH ×3 (08:57→16:03)
[2019-11-20] MEDS: IBUPROFEN 400 MG TABLET PO PRN ×2 (08:58→17:13)
[2019-11-20] MEDS: ESCITALOPRAM OXALATE 10 MG TABLET PO SCH ×2 (08:58→09:00)
[2019-11-20] MEDS: DOCUSATE SODIUM 100 MG CAPSULE PO PRN (09:11)
[2019-11-20 16:07] VITALS: BP 134/85
[2019-11-20] MEDS: QUEtiapine FUMARATE 50 MG ER TABLET PO SCH (20:43)
[2019-11-20] MEDS: MIRTAZAPINE 30 MG TABLET PO SCH (20:43)
[2019-11-21 03:50] VITALS: BP 113/66
[2019-11-21] MEDS: GABAPENTIN 300 MG CAPSULE PO SCH ×3 (08:12→17:09)
[2019-11-21 08:22] VITALS: BP 133/84
[2019-11-21] MEDS: IBUPROFEN 400 MG TABLET PO PRN ×2 (08:22→20:56)
[2019-11-21 08:38] VITALS: BP 133/84
[2019-11-21] MEDS: ESCITALOPRAM OXALATE 10 MG TABLET PO SCH ×2 (09:00→20:57)
[2019-11-21 16:13] VITALS: BP 138/80
[2019-11-21 20:56] VITALS: BP 138/82
[2019-11-21] MEDS: QUEtiapine FUMARATE 50 MG ER TABLET PO SCH (20:57)
[2019-11-21] MEDS: MIRTAZAPINE 30 MG TABLET PO SCH (20:57)
[2019-11-22 08:26] VITALS: BP 139/74
[2019-11-22] MEDS: GABAPENTIN 300 MG CAPSULE PO SCH ×3 (09:15→16:15)
[2019-11-22 16:09] VITALS: BP 121/79
[2019-11-22] MEDS: DOCUSATE SODIUM 100 MG CAPSULE PO PRN (16:46)
[2019-11-22] MEDS: QUEtiapine FUMARATE 50 MG ER TABLET PO SCH (21:00)
[2019-11-22] MEDS: MIRTAZAPINE 30 MG TABLET PO SCH (21:00)
[2019-11-22] MEDS: ESCITALOPRAM OXALATE 10 MG TABLET PO SCH (21:00)
[2019-11-22] MEDS: MAGNESIUM HYDROXIDE SUSPENSION 30 ML UDCUP PO PRN (21:43)
[2019-11-23] MEDS: GABAPENTIN 300 MG CAPSULE PO SCH ×3 (08:35→16:32)
[2019-11-23 08:38] VITALS: BP 135/78
[2019-11-23] MEDS: DOCUSATE SODIUM 100 MG CAPSULE PO PRN (10:58)
[2019-11-23] MEDS: BuPROPion HCL XL 150 MG ER TABLET PO SCH (14:22)
[2019-11-23 16:00] VITALS: BP 142/82
[2019-11-23] MEDS: ESCITALOPRAM OXALATE 10 MG TABLET PO SCH (20:17)
[2019-11-23] MEDS: MIRTAZAPINE 30 MG TABLET PO SCH (20:17)
[2019-11-23] MEDS: QUEtiapine FUMARATE 50 MG ER TABLET PO SCH (20:17)
[2019-11-24 01:33] VITALS: BP 136/83
[2019-11-24 08:00] VITALS: BP 137/79
[2019-11-24] MEDS: BuPROPion HCL XL 150 MG ER TABLET PO SCH (08:52)
[2019-11-24] MEDS: GABAPENTIN 300 MG CAPSULE PO SCH ×3 (08:52→16:05)
[2019-11-24] MEDS: DOCUSATE SODIUM 100 MG CAPSULE PO PRN (11:40)
[2019-11-24 16:11] VITALS: BP 148/86
[2019-11-24 17:18] VITALS: BP 136/68
[2019-11-24] MEDS: ESCITALOPRAM OXALATE 10 MG TABLET PO SCH (20:55)
[2019-11-24] MEDS: QUEtiapine FUMARATE 50 MG ER TABLET PO SCH (20:55)
[2019-11-24] MEDS: MIRTAZAPINE 30 MG TABLET PO SCH (20:55)
[2019-11-25 03:48] VITALS: BP 132/78
[2019-11-25 08:12] VITALS: BP 147/89
[2019-11-25] MEDS: GABAPENTIN 300 MG CAPSULE PO SCH ×3 (08:53→16:02)
[2019-11-25] MEDS: BuPROPion HCL XL 150 MG ER TABLET PO SCH (09:00)
[2019-11-25] MEDS: IBUPROFEN 400 MG TABLET PO PRN (10:50)
[2019-11-25 16:10] VITALS: BP 138/80
[2019-11-25] MEDS: MIRTAZAPINE 30 MG TABLET PO SCH (20:49)
[2019-11-25] MEDS: QUEtiapine FUMARATE 50 MG ER TABLET PO SCH (20:49)
[2019-11-25] MEDS: ESCITALOPRAM OXALATE 10 MG TABLET PO SCH (20:49)
[2019-11-26 08:19] VITALS: BP 136/81
[2019-11-26] MEDS: BuPROPion HCL XL 150 MG ER TABLET PO SCH (08:35)
[2019-11-26] MEDS: GABAPENTIN 300 MG CAPSULE PO SCH ×3 (09:26→17:45)
[2019-11-26] MEDS: DOCUSATE SODIUM 100 MG CAPSULE PO PRN ×2 (09:37→17:45)
[2019-11-26 16:09] VITALS: BP 133/80
[2019-11-26] MEDS: MIRTAZAPINE 30 MG TABLET PO SCH (21:29)
[2019-11-26] MEDS: ESCITALOPRAM OXALATE 10 MG TABLET PO SCH (21:29)
[2019-11-26] MEDS: QUEtiapine FUMARATE 50 MG ER TABLET PO SCH (21:29)
[2019-11-27 02:13] VITALS: BP 143/80
[2019-11-27 08:12] VITALS: BP 117/62
[2019-11-27] MEDS: BuPROPion HCL XL 150 MG ER TABLET PO SCH (08:40)
[2019-11-27] MEDS: GABAPENTIN 300 MG CAPSULE PO SCH ×3 (09:13→16:10)
[2019-11-27] MEDS: IBUPROFEN 400 MG TABLET PO PRN (09:13)
[2019-11-27] MEDS: DOCUSATE SODIUM 100 MG CAPSULE PO PRN (09:13)
[2019-11-27 16:10] VITALS: BP 112/81
[2019-11-27] MEDS: ESCITALOPRAM OXALATE 10 MG TABLET PO SCH (20:42)
[2019-11-27] MEDS: MIRTAZAPINE 30 MG TABLET PO SCH (20:42)
[2019-11-27] MEDS: QUEtiapine FUMARATE 50 MG ER TABLET PO SCH (20:42)
[2019-11-28 06:31] VITALS: BP 138/87
[2019-11-28 08:13] VITALS: BP 145/91
[2019-11-28] MEDS: GABAPENTIN 300 MG CAPSULE PO SCH ×2 (08:42→12:14)
[2019-11-28] MEDS: BuPROPion HCL XL 150 MG ER TABLET PO SCH (08:42)
[2019-11-28] MEDS ORDERED: ESCI10TA PO (09:59)
[2019-11-28] MEDS ORDERED: QUET50TA15 PO (09:59)
[2019-11-28] MEDS ORDERED: BUPR75 PO (09:59)
== END 2019-11-28 13:23 | disposition home or self-care (01) | DRG 750 ==
LOC: EMS 05:14 → B3A 10:12
PROVIDERS: ADMIT Psychiatry & Neurology Child & Adolescent Psychiatry
DX: F25.1 Schizoaffective disorder, depressive type (principal); K74.60 Unspecified cirrhosis of liver; G40.909 Epilepsy, unspecified, not intractable, without status epilepticus; B19.20 Unspecified viral hepatitis C without hepatic coma; B86 Scabies; E78.5 Hyperlipidemia, unspecified; D64.9 Anemia, unspecified; F10.10 Alcohol abuse, uncomplicated; I10 Essential (primary) hypertension; J44.9 Chronic obstructive pulmonary disease, unspecified; K21.9 Gastro-esophageal reflux disease without esophagitis; F15.10 Other stimulant abuse, uncomplicated; S61.512A Laceration without foreign body of left wrist, initial encounter; S61.511A Laceration without foreign body of right wrist, initial encounter; X78.9XXA Intentional self-harm by unspecified sharp object, initial encounter; Y92.9 Unspecified place or not applicable; Z59.0 Homelessness; Z99.3 Dependence on wheelchair
CPT/HCPCS: 83036; 84443; 87081; G0480

== ENCOUNTER 2019-12-18 02:43 | Inpatient (IN) | payer MEDICAID ==
[~2019-12-18] VITALS: Ht 182.9 cm; Wt 147.0 kg
[~2019-12-18 02:43] MED LIST changes: +BUPR75 PO; -CLIN300C3 PO; +ESCI-8 PO; +GABA-1181 PO; -GABA-531 PO; -HYDR50CA9 PO; -METO25 PO; -QUET100T PO; +QUET50TA15 PO
[2019-12-18] MEDS ORDERED: QUEtiapine FUMARATE 100 MG TABLET PO PRN (03:45)
[2019-12-18] MEDS: LORazepam 2 MG TABLET PO PRN ×2 (05:04→16:05)
[2019-12-18] MEDS ORDERED: PNEUMOCOCCAL VACCINE POLYVALENT 0.5 ML VIAL [PPSV23] IM ONE (05:45)
[2019-12-18 05:48] VITALS: BP 130/78
[2019-12-18 08:34] VITALS: BP 115/73
[2019-12-18] MEDS ORDERED: LOPERAMIDE HCL 2 MG CAPSULE PO PRN (08:45)
[2019-12-18] MEDS ORDERED: MAGNESIUM HYDROXIDE SUSPENSION 30 ML UDCUP PO PRN (08:45)
[2019-12-18] MEDS ORDERED: ALBUTEROL SULFATE HFA 90 MCG/PUFF 8 GM INHALER IH PRN (08:45)
[2019-12-18] MEDS ORDERED: ACETAMINOPHEN 325 MG TABLET PO PRN (08:45)
[2019-12-18] MEDS ORDERED: GuaiFENesin/D-METHORPHAN [SUGAR-FREE] 200-20MG/10 ML SYRUP UDCUP PO PRN (08:45)
[2019-12-18] MEDS ORDERED: DOCUSATE SODIUM 100 MG CAPSULE PO PRN (08:45)
[2019-12-18] MEDS ORDERED: PETROLATUM,WHITE 28 GM JELLY TP PRN (08:45)
[2019-12-18] MEDS ORDERED: ONDANSETRON HCL 4 MG TABLET PO PRN (08:45)
[2019-12-18] MEDS ORDERED: MAG HYDROX/AL HYDROX/SIMETH ES 30 ML SUSPENSION UDCUP PO PRN (08:45)
[2019-12-18] MEDS ORDERED: CloNIDine HCL 0.1 MG TABLET PO PRN (08:45)
[2019-12-18] MEDS ORDERED: NICOTINE 14 MG/24 HOUR PATCH TD PRN (08:45)
[2019-12-18 09:23] VITALS: BP 130/79
[2019-12-18] MEDS: BuPROPion HCL 75 MG TABLET PO SCH (12:34)
[2019-12-18] MEDS: IBUPROFEN 400 MG TABLET PO PRN (16:05)
[2019-12-18 16:16] VITALS: BP 155/85
[2019-12-18] MEDS: LISINOPRIL 10 MG TABLET PO SCH (16:57)
[2019-12-18] MEDS: METOPROLOL TARTRATE 25 MG TABLET PO SCH (16:57)
[2019-12-18 18:51] VITALS: BP 105/60
[2019-12-18] MEDS: ESCITALOPRAM OXALATE 10 MG TABLET PO SCH (20:00)
[2019-12-18] MEDS: MIRTAZAPINE 30 MG TABLET PO SCH (20:00)
[2019-12-18] MEDS: QUEtiapine FUMARATE 200 MG ER TABLET PO SCH (20:00)
[2019-12-19 08:02] VITALS: BP 108/60
[2019-12-19 08:22] LABS: BASOPHILS % (AUTO) 0.4 % (0.0-2.0); EOSINOPHILS % (AUTO) 3.4 % (1.0-6.0); HEMATOCRIT 41.2 % (41-53); HEMOGLOBIN 13.8 g/dL (13.5-17.5); LYMPHOCYTES # (AUTO) 2.8 K/uL (1.0-4.8); LYMPHOCYTES % (AUTO) 37.4 % (22.0-44.0); MEAN CORPUSCULAR HEMOGLOBIN 28.7 pg (26.0-34.0); MEAN CORPUSCULAR HGB CONC 33.5 G/dL (31.0-37.0); MEAN CORPUSCULAR VOLUME 86 fL (80-100); MONOCYTES # (AUTO) 0.9 K/uL (0.1-1.0); MONOCYTES % (AUTO) 12.8 % (2.0-9.0); NEUTROPHILS # (AUTO) 3.4 K/uL (1.8-7.7); PLATELET COUNT (AUTO) 246 K/uL (150-450); RED BLOOD CELL COUNT(AUTO) 4.81 MIL/uL (4.50-5.90); RED CELL DISTRIBUTION WIDTH 14.6 % (11.5-14.5)
[2019-12-19 08:45] VITALS: BP 132/90
[2019-12-19] MEDS: LISINOPRIL 10 MG TABLET PO SCH (08:48)
[2019-12-19] MEDS: BuPROPion HCL 75 MG TABLET PO SCH (08:48)
[2019-12-19] MEDS: METOPROLOL TARTRATE 25 MG TABLET PO SCH (08:48)
[2019-12-19] MEDS: GABAPENTIN 300 MG CAPSULE PO SCH ×3 (08:48→16:47)
[2019-12-19 08:55] LABS: ALANINE AMINOTRANSFERASE 37 U/L (12-78); ALBUMIN 3.2 g/dL (3.4-5.0); ALKALINE PHOSPHATASE 49 U/L (46-116); ANION GAP 8 mmol/L (8-16); ASPARTATE AMINOTRANSFERASE 21 U/L (15-37); BILIRUBIN,TOTAL 0.4 mg/dL (0.1-1.0); CALCIUM, TOTAL 8.8 mg/dL (8.8-10.5); CARBON DIOXIDE 27 mmol/L (22-29); CHLORIDE 107 mmol/L (98-107); CHOL/HDL RATIO 4.5 (4.2-7.3); CHOLESTEROL 121 mg/dL (131-200); CREATININE 0.83 mg/dL (0.60-1.30); FREE T4 (FREE THYROXINE) 0.94 ng/dL (0.76-1.46); GLOMERULAR FILTR. RATE CALC > 60 mL/min (>60); GLUCOSE,RANDOM 127 mg/dL (70-110); HDL CHOLESTEROL 27 mg/dL (40-60); LDL CHOL (CALC.) 63 mg/dL (0-130); POTASSIUM 4.5 mmol/L (3.5-5.1); SODIUM SERUM 142 mmol/L (136-145); THYROID STIMULATING HORMONE 0.81 uIU/mL (0.36-3.74); TOTAL PROTEIN, SERUM 6.8 g/dL (6.4-8.2); TRIGLYCERIDES 157 mg/dL (15-150); UREA NITROGEN, BLOOD 14 mg/dL (7-18)
[2019-12-19 09:05] LABS: HEMOGLOBIN A1C 5.9 % (3.8-5.6)
[2019-12-19] MEDS: LORazepam 2 MG TABLET PO PRN ×2 (10:29→16:54)
[2019-12-19 16:04] VITALS: BP 107/62
[2019-12-19] MEDS: QUEtiapine FUMARATE 200 MG ER TABLET PO SCH (20:45)
[2019-12-19] MEDS: ESCITALOPRAM OXALATE 10 MG TABLET PO SCH (20:45)
[2019-12-19] MEDS: MIRTAZAPINE 30 MG TABLET PO SCH (20:45)
[2019-12-20 01:26] VITALS: BP 148/98
[2019-12-20 09:40] VITALS: BP 140/62
[2019-12-20] MEDS: BuPROPion HCL 75 MG TABLET PO SCH (09:41)
[2019-12-20] MEDS: METOPROLOL TARTRATE 25 MG TABLET PO SCH (09:42)
[2019-12-20] MEDS: LISINOPRIL 10 MG TABLET PO SCH (09:42)
[2019-12-20] MEDS: GABAPENTIN 300 MG CAPSULE PO SCH ×3 (09:42→16:30)
[2019-12-20] MEDS: LORazepam 2 MG TABLET PO PRN ×2 (09:42→20:43)
[2019-12-20 17:03] VITALS: BP 130/66
[2019-12-20] MEDS: QUEtiapine FUMARATE 200 MG ER TABLET PO SCH (21:15)
[2019-12-20] MEDS: ESCITALOPRAM OXALATE 10 MG TABLET PO SCH (21:15)
[2019-12-20] MEDS: MIRTAZAPINE 30 MG TABLET PO SCH (21:15)
[2019-12-21 01:11] VITALS: BP 122/73
[2019-12-21 08:36] VITALS: BP 143/59
[2019-12-21] MEDS: BuPROPion HCL 75 MG TABLET PO SCH (09:10)
[2019-12-21] MEDS: GABAPENTIN 300 MG CAPSULE PO SCH ×3 (09:11→16:37)
[2019-12-21] MEDS: LISINOPRIL 10 MG TABLET PO SCH (09:11)
[2019-12-21] MEDS: METOPROLOL TARTRATE 25 MG TABLET PO SCH (09:11)
[2019-12-21] MEDS: LORazepam 1 MG TABLET PO PRN (13:12)
[2019-12-21 16:17] VITALS: BP 135/84
[2019-12-21] MEDS: MIRTAZAPINE 30 MG TABLET PO SCH (20:33)
[2019-12-21] MEDS: ESCITALOPRAM OXALATE 10 MG TABLET PO SCH (20:34)
[2019-12-21] MEDS: QUEtiapine FUMARATE 200 MG ER TABLET PO SCH (20:34)
[2019-12-22] MEDS: LORazepam 1 MG TABLET PO PRN ×3 (00:13→16:14)
[2019-12-22 00:27] VITALS: BP 129/84
[2019-12-22 08:32] VITALS: BP 134/86
[2019-12-22] MEDS: BuPROPion HCL 75 MG TABLET PO SCH (09:17)
[2019-12-22] MEDS: METOPROLOL TARTRATE 25 MG TABLET PO SCH (09:17)
[2019-12-22] MEDS: GABAPENTIN 300 MG CAPSULE PO SCH ×3 (09:17→16:14)
[2019-12-22] MEDS: LISINOPRIL 10 MG TABLET PO SCH (09:17)
[2019-12-22 16:06] VITALS: BP 139/74
[2019-12-22] MEDS: QUEtiapine FUMARATE 200 MG ER TABLET PO SCH (20:26)
[2019-12-22] MEDS: ESCITALOPRAM OXALATE 10 MG TABLET PO SCH (20:26)
[2019-12-22] MEDS: MIRTAZAPINE 30 MG TABLET PO SCH (20:26)
[2019-12-23 01:30] VITALS: BP 133/89
[2019-12-23 08:29] VITALS: BP 112/58
[2019-12-23] MEDS: METOPROLOL TARTRATE 25 MG TABLET PO SCH (08:43)
[2019-12-23] MEDS: LISINOPRIL 10 MG TABLET PO SCH (08:43)
[2019-12-23] MEDS: GABAPENTIN 300 MG CAPSULE PO SCH ×3 (08:43→16:00)
[2019-12-23] MEDS: BuPROPion HCL 75 MG TABLET PO SCH (08:44)
[2019-12-23] MEDS: LORazepam 1 MG TABLET PO PRN (15:59)
[2019-12-23 16:06] VITALS: BP 110/71
[2019-12-23] MEDS: ESCITALOPRAM OXALATE 10 MG TABLET PO SCH (20:24)
[2019-12-23] MEDS: MIRTAZAPINE 30 MG TABLET PO SCH (20:24)
[2019-12-23] MEDS: QUEtiapine FUMARATE 200 MG ER TABLET PO SCH (20:24)
[2019-12-24 00:36] VITALS: BP 129/77
[2019-12-24] MEDS: LISINOPRIL 10 MG TABLET PO SCH (08:23)
[2019-12-24] MEDS: METOPROLOL TARTRATE 25 MG TABLET PO SCH (08:23)
[2019-12-24] MEDS: GABAPENTIN 300 MG CAPSULE PO SCH ×3 (08:23→16:58)
[2019-12-24] MEDS: BuPROPion HCL 75 MG TABLET PO SCH (08:29)
[2019-12-24 08:33] VITALS: BP 139/75
[2019-12-24] MEDS: LORazepam 1 MG TABLET PO PRN ×2 (10:02→17:31)
[2019-12-24 16:08] VITALS: BP 125/67
[2019-12-24] MEDS: MIRTAZAPINE 30 MG TABLET PO SCH (20:27)
[2019-12-24] MEDS: QUEtiapine FUMARATE 200 MG ER TABLET PO SCH (20:27)
[2019-12-24] MEDS: ESCITALOPRAM OXALATE 10 MG TABLET PO SCH (20:27)
[2019-12-25 00:47] VITALS: BP 121/76
[2019-12-25 08:35] VITALS: BP 136/74
[2019-12-25] MEDS: BuPROPion HCL 75 MG TABLET PO SCH (08:36)
[2019-12-25] MEDS: LISINOPRIL 10 MG TABLET PO SCH (08:36)
[2019-12-25] MEDS: METOPROLOL TARTRATE 25 MG TABLET PO SCH (08:36)
[2019-12-25] MEDS: GABAPENTIN 300 MG CAPSULE PO SCH ×3 (08:37→16:06)
[2019-12-25] MEDS: LORazepam 1 MG TABLET PO PRN ×2 (11:02→16:06)
[2019-12-25 16:10] VITALS: BP 119/72
[2019-12-25] MEDS: ESCITALOPRAM OXALATE 10 MG TABLET PO SCH (20:31)
[2019-12-25] MEDS: MIRTAZAPINE 30 MG TABLET PO SCH (20:31)
[2019-12-25] MEDS: QUEtiapine FUMARATE 200 MG ER TABLET PO SCH (20:31)
[2019-12-26 05:18] VITALS: BP 133/76
[2019-12-26] MEDS: METOPROLOL TARTRATE 25 MG TABLET PO SCH (08:23)
[2019-12-26] MEDS: LISINOPRIL 10 MG TABLET PO SCH (08:23)
[2019-12-26] MEDS: BuPROPion HCL 75 MG TABLET PO SCH (08:23)
[2019-12-26] MEDS: GABAPENTIN 300 MG CAPSULE PO SCH ×3 (08:23→16:20)
[2019-12-26 08:32] VITALS: BP 118/49
[2019-12-26] MEDS: LORazepam 1 MG TABLET PO PRN ×2 (10:04→16:20)
[2019-12-26 16:09] VITALS: BP 122/70
[2019-12-26] MEDS: MIRTAZAPINE 30 MG TABLET PO SCH (20:24)
[2019-12-26] MEDS: ESCITALOPRAM OXALATE 10 MG TABLET PO SCH (20:24)
[2019-12-26] MEDS: QUEtiapine FUMARATE 200 MG ER TABLET PO SCH (20:24)
[2019-12-27] MEDS: LORazepam 1 MG TABLET PO PRN ×3 (04:34→16:04)
[2019-12-27 04:39] VITALS: BP 128/75
[2019-12-27] MEDS: BuPROPion HCL 75 MG TABLET PO SCH (08:01)
[2019-12-27] MEDS: LISINOPRIL 10 MG TABLET PO SCH (08:01)
[2019-12-27] MEDS: METOPROLOL TARTRATE 25 MG TABLET PO SCH (08:01)
[2019-12-27] MEDS: GABAPENTIN 300 MG CAPSULE PO SCH ×3 (08:01→16:03)
[2019-12-27 16:39] VITALS: BP 177/98
[2019-12-27] MEDS: QUEtiapine FUMARATE 200 MG ER TABLET PO SCH (20:40)
[2019-12-27] MEDS: ESCITALOPRAM OXALATE 10 MG TABLET PO SCH (20:40)
[2019-12-27] MEDS: MIRTAZAPINE 30 MG TABLET PO SCH (20:40)
[2019-12-28 02:36] VITALS: BP 122/87
[2019-12-28] MEDS: LORazepam 1 MG TABLET PO PRN ×3 (02:46→16:24)
[2019-12-28] MEDS: ZOLPIDEM TARTRATE 10 MG TABLET PO PRN (02:46)
[2019-12-28 08:39] VITALS: BP 139/89
[2019-12-28] MEDS: METOPROLOL TARTRATE 25 MG TABLET PO SCH (08:44)
[2019-12-28] MEDS: LISINOPRIL 10 MG TABLET PO SCH (08:44)
[2019-12-28] MEDS: GABAPENTIN 300 MG CAPSULE PO SCH ×3 (08:44→16:18)
[2019-12-28] MEDS: BuPROPion HCL 75 MG TABLET PO SCH (08:45)
[2019-12-28 16:15] VITALS: BP 141/64
[2019-12-28] MEDS: MIRTAZAPINE 30 MG TABLET PO SCH (20:34)
[2019-12-28] MEDS: ESCITALOPRAM OXALATE 10 MG TABLET PO SCH (20:34)
[2019-12-28] MEDS: QUEtiapine FUMARATE 200 MG ER TABLET PO SCH (20:34)
[2019-12-29] MEDS: LORazepam 1 MG TABLET PO PRN ×3 (01:29→16:43)
[2019-12-29 06:00] VITALS: BP 134/89
[2019-12-29] MEDS: METOPROLOL TARTRATE 25 MG TABLET PO SCH (09:05)
[2019-12-29] MEDS: LISINOPRIL 10 MG TABLET PO SCH (09:05)
[2019-12-29] MEDS: GABAPENTIN 300 MG CAPSULE PO SCH ×3 (09:06→16:37)
[2019-12-29] MEDS: BuPROPion HCL 75 MG TABLET PO SCH (09:06)
[2019-12-29 20:08] VITALS: BP 136/75
[2019-12-29] MEDS: ESCITALOPRAM OXALATE 10 MG TABLET PO SCH (20:18)
[2019-12-29] MEDS: MIRTAZAPINE 30 MG TABLET PO SCH (20:18)
[2019-12-29] MEDS: QUEtiapine FUMARATE 200 MG ER TABLET PO SCH (20:18)
[2019-12-29] MEDS: ZOLPIDEM TARTRATE 10 MG TABLET PO PRN (21:42)
[2019-12-30 01:06] VITALS: BP 142/90
[2019-12-30 08:06] VITALS: BP 120/68
[2019-12-30] MEDS: GABAPENTIN 300 MG CAPSULE PO SCH ×3 (08:22→16:14)
[2019-12-30] MEDS: LISINOPRIL 10 MG TABLET PO SCH (08:22)
[2019-12-30] MEDS: METOPROLOL TARTRATE 25 MG TABLET PO SCH (08:22)
[2019-12-30] MEDS: BuPROPion HCL 75 MG TABLET PO SCH (08:22)
[2019-12-30] MEDS: LORazepam 1 MG TABLET PO PRN ×2 (10:30→16:15)
[2019-12-30] MEDS: IBUPROFEN 400 MG TABLET PO PRN (14:46)
[2019-12-30 16:09] VITALS: BP 135/84
[2019-12-30] MEDS: ESCITALOPRAM OXALATE 10 MG TABLET PO SCH (20:36)
[2019-12-30] MEDS: MIRTAZAPINE 30 MG TABLET PO SCH (20:36)
[2019-12-30] MEDS: QUEtiapine FUMARATE 200 MG ER TABLET PO SCH (20:37)
[2019-12-30] MEDS: ZOLPIDEM TARTRATE 10 MG TABLET PO PRN (21:19)
[2019-12-31 03:43] VITALS: BP 135/83
[2019-12-31] MEDS: LORazepam 1 MG TABLET PO PRN ×3 (03:43→16:02)
[2019-12-31 08:19] VITALS: BP 144/78
[2019-12-31] MEDS: GABAPENTIN 300 MG CAPSULE PO SCH ×3 (08:54→16:02)
[2019-12-31] MEDS: BuPROPion HCL 75 MG TABLET PO SCH (08:54)
[2019-12-31] MEDS: METOPROLOL TARTRATE 25 MG TABLET PO SCH (08:55)
[2019-12-31] MEDS: LISINOPRIL 10 MG TABLET PO SCH (08:55)
[2019-12-31 16:00] VITALS: BP 138/79
[2019-12-31] MEDS: ESCITALOPRAM OXALATE 10 MG TABLET PO SCH (20:47)
[2019-12-31] MEDS: MIRTAZAPINE 30 MG TABLET PO SCH (20:47)
[2019-12-31] MEDS: ZOLPIDEM TARTRATE 10 MG TABLET PO PRN (20:47)
[2019-12-31] MEDS: QUEtiapine FUMARATE 200 MG ER TABLET PO SCH (20:47)
[2020-01-01 06:46] VITALS: BP 144/99
[2020-01-01 08:06] VITALS: BP 124/77
[2020-01-01] MEDS: LISINOPRIL 10 MG TABLET PO SCH (09:11)
[2020-01-01] MEDS: GABAPENTIN 300 MG CAPSULE PO SCH ×3 (09:11→16:50)
[2020-01-01] MEDS: BuPROPion HCL 75 MG TABLET PO SCH (09:11)
[2020-01-01] MEDS: METOPROLOL TARTRATE 25 MG TABLET PO SCH (09:11)
[2020-01-01] MEDS: LORazepam 1 MG TABLET PO PRN ×2 (10:31→16:50)
[2020-01-01 16:06] VITALS: BP 121/78
[2020-01-01] MEDS: MIRTAZAPINE 30 MG TABLET PO SCH (20:43)
[2020-01-01] MEDS: QUEtiapine FUMARATE 200 MG ER TABLET PO SCH (20:43)
[2020-01-01] MEDS: ESCITALOPRAM OXALATE 10 MG TABLET PO SCH (20:43)
[2020-01-02 05:54] VITALS: BP 124/77
[2020-01-02 08:06] VITALS: BP 128/81
[2020-01-02] MEDS: METOPROLOL TARTRATE 25 MG TABLET PO SCH (08:56)
[2020-01-02] MEDS: GABAPENTIN 300 MG CAPSULE PO SCH ×3 (08:56→16:45)
[2020-01-02] MEDS: LISINOPRIL 10 MG TABLET PO SCH (08:57)
[2020-01-02] MEDS: BuPROPion HCL 75 MG TABLET PO SCH (08:57)
[2020-01-02] MEDS: LORazepam 1 MG TABLET PO PRN ×2 (10:47→16:45)
[2020-01-02 16:15] VITALS: BP 128/75
[2020-01-02] MEDS: ESCITALOPRAM OXALATE 10 MG TABLET PO SCH (20:41)
[2020-01-02] MEDS: MIRTAZAPINE 30 MG TABLET PO SCH (20:41)
[2020-01-02] MEDS: ZOLPIDEM TARTRATE 10 MG TABLET PO PRN (20:41)
[2020-01-02] MEDS: QUEtiapine FUMARATE 200 MG ER TABLET PO SCH (20:41)
[2020-01-03 00:10] VITALS: BP 142/98
[2020-01-03] MEDS: GABAPENTIN 300 MG CAPSULE PO SCH ×3 (08:00→16:32)
[2020-01-03] MEDS: BuPROPion HCL 75 MG TABLET PO SCH (08:01)
[2020-01-03] MEDS: LISINOPRIL 10 MG TABLET PO SCH (08:01)
[2020-01-03] MEDS: METOPROLOL TARTRATE 25 MG TABLET PO SCH (08:01)
[2020-01-03 08:04] VITALS: BP 136/78
[2020-01-03] MEDS: LORazepam 1 MG TABLET PO PRN ×2 (13:05→18:19)
[2020-01-03 16:00] VITALS: BP 124/80
[2020-01-03] MEDS: QUEtiapine FUMARATE 200 MG ER TABLET PO SCH (20:12)
[2020-01-03] MEDS: ESCITALOPRAM OXALATE 10 MG TABLET PO SCH (20:12)
[2020-01-03] MEDS: MIRTAZAPINE 30 MG TABLET PO SCH (20:12)
[2020-01-04 00:48] VITALS: BP 132/82
[2020-01-04] MEDS: METOPROLOL TARTRATE 25 MG TABLET PO SCH (08:43)
[2020-01-04] MEDS: LISINOPRIL 10 MG TABLET PO SCH (08:43)
[2020-01-04] MEDS: BuPROPion HCL 75 MG TABLET PO SCH (08:43)
[2020-01-04] MEDS: OMEGA-3/DHA/EPA/FISH OIL 1,000 MG CAPSULE PO SCH (08:43)
[2020-01-04] MEDS: GABAPENTIN 300 MG CAPSULE PO SCH ×3 (08:43→16:32)
[2020-01-04 09:34] VITALS: BP 118/74
[2020-01-04] MEDS: LORazepam 1 MG TABLET PO PRN ×2 (12:35→20:41)
[2020-01-04 16:39] VITALS: BP 142/87
[2020-01-04] MEDS: QUEtiapine FUMARATE 200 MG ER TABLET PO SCH (20:20)
[2020-01-04] MEDS: ESCITALOPRAM OXALATE 10 MG TABLET PO SCH (20:20)
[2020-01-04] MEDS: MIRTAZAPINE 30 MG TABLET PO SCH (20:20)
[2020-01-05 02:33] VITALS: BP 132/79
[2020-01-05 09:09] VITALS: BP 134/71
[2020-01-05] MEDS: METOPROLOL TARTRATE 25 MG TABLET PO SCH (09:09)
[2020-01-05] MEDS: BuPROPion HCL 75 MG TABLET PO SCH (09:09)
[2020-01-05] MEDS: GABAPENTIN 300 MG CAPSULE PO SCH ×3 (09:09→16:21)
[2020-01-05] MEDS: OMEGA-3/DHA/EPA/FISH OIL 1,000 MG CAPSULE PO SCH (09:09)
[2020-01-05] MEDS: LISINOPRIL 10 MG TABLET PO SCH (09:09)
[2020-01-05] MEDS: LORazepam 1 MG TABLET PO PRN ×2 (12:32→16:35)
[2020-01-05 16:10] VITALS: BP 137/93
[2020-01-05] MEDS: QUEtiapine FUMARATE 200 MG ER TABLET PO SCH (20:01)
[2020-01-05] MEDS: ESCITALOPRAM OXALATE 10 MG TABLET PO SCH (20:01)
[2020-01-05] MEDS: MIRTAZAPINE 30 MG TABLET PO SCH (20:06)
[2020-01-06 08:27] VITALS: BP 107/63
[2020-01-06] MEDS: OMEGA-3/DHA/EPA/FISH OIL 1,000 MG CAPSULE PO SCH (09:00)
[2020-01-06] MEDS: METOPROLOL TARTRATE 25 MG TABLET PO SCH (09:43)
[2020-01-06] MEDS: GABAPENTIN 300 MG CAPSULE PO SCH ×3 (09:43→17:05)
[2020-01-06] MEDS: BuPROPion HCL 75 MG TABLET PO SCH (09:43)
[2020-01-06] MEDS: LISINOPRIL 10 MG TABLET PO SCH (09:43)
[2020-01-06] MEDS: LORazepam 1 MG TABLET PO PRN ×2 (13:31→18:13)
[2020-01-06 16:04] VITALS: BP 138/80
[2020-01-06] MEDS: ESCITALOPRAM OXALATE 10 MG TABLET PO SCH (21:01)
[2020-01-06] MEDS: QUEtiapine FUMARATE 200 MG ER TABLET PO SCH (21:01)
[2020-01-06] MEDS: MIRTAZAPINE 30 MG TABLET PO SCH (21:02)
[2020-01-07 04:07] VITALS: BP 139/88
[2020-01-07] MEDS: BuPROPion HCL 75 MG TABLET PO SCH (08:14)
[2020-01-07] MEDS: METOPROLOL TARTRATE 25 MG TABLET PO SCH (08:14)
[2020-01-07] MEDS: LISINOPRIL 10 MG TABLET PO SCH (08:14)
[2020-01-07] MEDS: OMEGA-3/DHA/EPA/FISH OIL 1,000 MG CAPSULE PO SCH (08:14)
[2020-01-07] MEDS: LORazepam 1 MG TABLET PO PRN (08:17)
[2020-01-07] MEDS: GABAPENTIN 300 MG CAPSULE PO SCH ×2 (08:17→14:37)
[2020-01-07] MEDS: IBUPROFEN 400 MG TABLET PO PRN (12:04)
[2020-01-07] MEDS ORDERED: QUET200T5 PO (14:05)
[2020-01-07] MEDS ORDERED: METO25 PO (14:11)
[2020-01-07] MEDS ORDERED: LISI-661 PO (14:11)
== END 2020-01-07 14:45 | disposition home or self-care (01) | DRG 750 ==
LOC: B2S 03:47 → B3A 12-20 15:06 → B2S 01-03 11:30
PROVIDERS: ADMIT Psychiatry & Neurology Child & Adolescent Psychiatry; ATTEND Psychiatry & Neurology Child & Adolescent Psychiatry
DX: F25.1 Schizoaffective disorder, depressive type (principal); Z59.0 Homelessness; E78.5 Hyperlipidemia, unspecified; I10 Essential (primary) hypertension; J44.9 Chronic obstructive pulmonary disease, unspecified; K21.9 Gastro-esophageal reflux disease without esophagitis; S61.512A Laceration without foreign body of left wrist, initial encounter; S61.511A Laceration without foreign body of right wrist, initial encounter; Z91.5 Personal history of self-harm; X78.1XXA Intentional self-harm by knife, initial encounter; Y93.89 Activity, other specified; Y92.89 Other specified places as the place of occurrence of the external cause; Y99.8 Other external cause status
CPT/HCPCS: 83036; 84439; 84443; 87081

== ENCOUNTER 2020-01-12 11:13 | Inpatient (IN) | payer MEDICAID ==
[~2020-01-12] VITALS: Ht 182.9 cm; Wt 147.0 kg
[~2020-01-12 11:13] MED LIST changes: +LISI-661 PO; +METO25 PO; +QUET200T5 PO; -QUET50TA15 PO
[2020-01-12] MEDS ORDERED: HALOPERIDOL LACTATE 5 MG/ML VIAL IM ONE (11:45)
[2020-01-12] MEDS ORDERED: LORazepam 2 MG/ML VIAL IM ONE (11:45)
[2020-01-12] MEDS ORDERED: HALOPERIDOL 5 MG TABLET PO PRN (13:15)
[2020-01-12] MEDS ORDERED: ZOLPIDEM TARTRATE 10 MG TABLET PO PRN (13:15)
[2020-01-12 17:16] VITALS: BP 127/71
[2020-01-13 00:14] VITALS: BP 105/70
[2020-01-13] MEDS ORDERED: ONDANSETRON HCL 4 MG TABLET PO PRN (07:45)
[2020-01-13] MEDS ORDERED: ACETAMINOPHEN 325 MG TABLET PO PRN (07:45)
[2020-01-13] MEDS ORDERED: MAGNESIUM HYDROXIDE SUSPENSION 30 ML UDCUP PO PRN (07:45)
[2020-01-13] MEDS ORDERED: MAG HYDROX/AL HYDROX/SIMETH ES 30 ML SUSPENSION UDCUP PO PRN (07:45)
[2020-01-13] MEDS ORDERED: ALBUTEROL SULFATE HFA 90 MCG/PUFF 8 GM INHALER IH PRN (07:45)
[2020-01-13] MEDS ORDERED: BACITRACIN 28.4 GM OINTMENT TP PRN (07:45)
[2020-01-13] MEDS ORDERED: PETROLATUM,WHITE 28 GM JELLY TP PRN (07:45)
[2020-01-13] MEDS ORDERED: OMEPRAZOLE 20 MG CAPSULE PO PRN (07:45)
[2020-01-13] MEDS ORDERED: BENZOCAINE/MENTHOL LOZENGE MM PRN (07:45)
[2020-01-13] MEDS ORDERED: IBUPROFEN 600 MG TABLET PO PRN (07:45)
[2020-01-13] MEDS ORDERED: DOCUSATE SODIUM 100 MG CAPSULE PO PRN (07:45)
[2020-01-13] MEDS ORDERED: CloNIDine HCL 0.1 MG TABLET PO PRN (07:45)
[2020-01-13 08:19] VITALS: BP 140/86
[2020-01-13] MEDS: METOPROLOL TARTRATE 25 MG TABLET PO SCH (08:29)
[2020-01-13] MEDS: LISINOPRIL 10 MG TABLET PO SCH (08:29)
[2020-01-13] MEDS: LOPERAMIDE HCL 2 MG CAPSULE PO PRN ×2 (08:32→20:15)
[2020-01-13] MEDS: LORazepam 2 MG TABLET PO PRN ×3 (08:32→20:42)
[2020-01-13 08:58] LABS: CHOL/HDL RATIO 5.4 (4.2-7.3)
[2020-01-13] MEDS: BuPROPion HCL 75 MG TABLET PO SCH (12:42)
[2020-01-13] MEDS: GABAPENTIN 300 MG CAPSULE PO SCH ×2 (12:43→16:39)
[2020-01-13 15:03] VITALS: BP 114/60
[2020-01-13 16:22] VITALS: BP 114/67
[2020-01-13] MEDS: ESCITALOPRAM OXALATE 10 MG TABLET PO SCH (20:15)
[2020-01-13] MEDS: QUEtiapine FUMARATE 200 MG ER TABLET PO SCH (20:15)
[2020-01-13] MEDS: MIRTAZAPINE 30 MG TABLET PO SCH (20:15)
[2020-01-14 00:26] VITALS: BP 121/73
[2020-01-14 08:15] VITALS: BP 105/50
[2020-01-14 08:35] LABS: BILIRUBIN,URINE NEGATIVE (NEGATIVE); GLUCOSE, URINE (UA) NEGATIVE (NEGATIVE); KETONES,URINE NEGATIVE (NEGATIVE); LEUKOCYTE ESTERASE ,URINE NEGATIVE (NEGATIVE); NITRATE,URINE NEGATIVE (NEGATIVE); OCCULT BLOOD,URINE NEGATIVE (NEGATIVE); PH,URINE 7.5 (5.0-8.0); PROTEIN,URINE NEGATIVE (NEGATIVE); UROBILINOGEN,URINE 0.2 mg/dL (<=1.0)
[2020-01-14 08:36] LABS: AMPHET/METH SCREEN,URINE NEGATIVE (NEGATIVE); BARBITURATE SCREEN, URINE NEGATIVE (NEGATIVE); BENZODIAZEPINES SCREEN,URINE NEGATIVE (NEGATIVE); CANNABINOID SCREEN,URINE NEGATIVE (NEGATIVE); COCAINE SCREEN,URINE NEGATIVE (NEGATIVE); METHADONE SCREEN, URINE NEGATIVE (NEGATIVE); OPIATE SCREEN,URINE NEGATIVE (NEGATIVE)
[2020-01-14 08:38] LABS: PHENCYCLIDINE SCREEN,URINE NEGATIVE (NEGATIVE)
[2020-01-14] MEDS: METOPROLOL TARTRATE 25 MG TABLET PO SCH (09:10)
[2020-01-14] MEDS: BuPROPion HCL 75 MG TABLET PO SCH (09:10)
[2020-01-14] MEDS: GABAPENTIN 300 MG CAPSULE PO SCH ×3 (09:11→16:31)
[2020-01-14] MEDS: LISINOPRIL 10 MG TABLET PO SCH (09:11)
[2020-01-14] MEDS: LORazepam 2 MG TABLET PO PRN ×3 (09:11→23:44)
[2020-01-14 09:52] LABS: APPEARANCE,URINE CLEAR (CLEAR)
[2020-01-14 16:00] VITALS: BP 110/55
[2020-01-14] MEDS: QUEtiapine FUMARATE 200 MG ER TABLET PO SCH (20:44)
[2020-01-14] MEDS: MIRTAZAPINE 30 MG TABLET PO SCH (20:44)
[2020-01-14] MEDS: ESCITALOPRAM OXALATE 10 MG TABLET PO SCH (20:44)
[2020-01-15] MEDS: METOPROLOL TARTRATE 25 MG TABLET PO SCH (09:00)
[2020-01-15] MEDS: LISINOPRIL 10 MG TABLET PO SCH (09:00)
[2020-01-15 09:29] VITALS: BP 104/62
[2020-01-15] MEDS: BuPROPion HCL 75 MG TABLET PO SCH (09:29)
[2020-01-15] MEDS: GABAPENTIN 300 MG CAPSULE PO SCH ×3 (09:29→16:29)
[2020-01-15] MEDS: LORazepam 2 MG TABLET PO PRN ×2 (12:49→17:12)
[2020-01-15 17:50] VITALS: BP 98/50
[2020-01-15] MEDS: MIRTAZAPINE 30 MG TABLET PO SCH (20:41)
[2020-01-15] MEDS: QUEtiapine FUMARATE 200 MG ER TABLET PO SCH (20:41)
[2020-01-15] MEDS: ESCITALOPRAM OXALATE 10 MG TABLET PO SCH (20:41)
[2020-01-16 06:41] VITALS: BP 138/82
[2020-01-16 08:08] VITALS: BP 132/80
[2020-01-16] MEDS: METOPROLOL TARTRATE 25 MG TABLET PO SCH (09:10)
[2020-01-16] MEDS: GABAPENTIN 300 MG CAPSULE PO SCH ×3 (09:10→16:26)
[2020-01-16] MEDS: LISINOPRIL 10 MG TABLET PO SCH (09:10)
[2020-01-16] MEDS: BuPROPion HCL 75 MG TABLET PO SCH (09:10)
[2020-01-16] MEDS: LORazepam 2 MG TABLET PO PRN ×2 (12:34→16:48)
[2020-01-16 16:00] VITALS: BP 126/88
[2020-01-16] MEDS: ESCITALOPRAM OXALATE 10 MG TABLET PO SCH (21:02)
[2020-01-16] MEDS: MIRTAZAPINE 30 MG TABLET PO SCH (21:02)
[2020-01-16] MEDS: QUEtiapine FUMARATE 200 MG ER TABLET PO SCH (21:02)
[2020-01-17 01:07] VITALS: BP 107/73
[2020-01-17] MEDS: LORazepam 2 MG TABLET PO PRN (03:59)
[2020-01-17 08:16] VITALS: BP 139/96
[2020-01-17] MEDS: LISINOPRIL 10 MG TABLET PO SCH (08:37)
[2020-01-17] MEDS: METOPROLOL TARTRATE 25 MG TABLET PO SCH (08:37)
[2020-01-17] MEDS: BuPROPion HCL 75 MG TABLET PO SCH (08:37)
[2020-01-17] MEDS: GABAPENTIN 300 MG CAPSULE PO SCH (08:37)
[2020-01-17] MEDS ORDERED: MIRT30 PO (11:10)
[2020-01-17] MEDS ORDERED: ESCI-8 PO (11:10)
[2020-01-17] MEDS ORDERED: BUPR75 PO (11:10)
[2020-01-17] MEDS ORDERED: QUET200T5 PO (11:10)
== END 2020-01-17 12:55 | disposition home or self-care (01) | DRG 750 ==
LOC: EMS 11:18 → B2S 13:14 → UNDOADMIN 16:44 → B2S 01-14 22:02
PROVIDERS: ADMIT Psychiatry & Neurology Psychiatry; ATTEND Psychiatry & Neurology Child & Adolescent Psychiatry
DX: F25.1 Schizoaffective disorder, depressive type (principal); Z68.41 Body mass index [BMI] 40.0-44.9, adult; E66.9 Obesity, unspecified; E78.5 Hyperlipidemia, unspecified; F17.200 Nicotine dependence, unspecified, uncomplicated; G47.00 Insomnia, unspecified; I10 Essential (primary) hypertension; J44.9 Chronic obstructive pulmonary disease, unspecified; K21.9 Gastro-esophageal reflux disease without esophagitis; K59.00 Constipation, unspecified; M21.371 Foot drop, right foot; Z79.899 Other long term (current) drug therapy; Z85.819 Personal history of malignant neoplasm of unspecified site of lip, oral cavity, and pharynx
CPT/HCPCS: 80307; 87081; 99291; J1630; J2060

== ENCOUNTER 2020-07-03 18:02 | Emergency (ER) | payer MEDICAID, OTHER ==
[~2020-07-03] VITALS: Ht 182.9 cm; Wt 154.6 kg
[2020-07-03] MEDS ORDERED: BACITRACIN 0.9 GM PACKET OINTMENT TP ONE (19:45)
[2020-07-03] MEDS ORDERED: ATOR40TA71 PO (19:51)
[2020-07-03] MEDS ORDERED: ASPI-1111 PO (19:51)
[2020-07-03] MEDS ORDERED: OMEP20CA12 PO (19:51)
[2020-07-03] MEDS ORDERED: BUPR-93 PO (19:51)
[2020-07-03 19:58] VITALS: BP 138/92
== END 2020-07-03 20:13 | disposition home or self-care (01) ==
LOC: EMS 18:08
DX: L08.9 Local infection of the skin and subcutaneous tissue, unspecified (principal); L29.9 Pruritus, unspecified; F31.9 Bipolar disorder, unspecified; I10 Essential (primary) hypertension; Z79.899 Other long term (current) drug therapy

== ENCOUNTER 2020-07-08 17:36 | Inpatient (IN) | payer MEDICAID, OTHER ==
[~2020-07-08] VITALS: Ht 182.9 cm; Wt 146.1 kg
[~2020-07-08 17:36] MED LIST changes: +ASPI-1111 PO; +ATOR40TA71 PO; +BUPR-93 PO; -BUPR75 PO; +OMEP20CA12 PO
[2020-07-08] MEDS ORDERED: BUPR1FIL5 SL (19:16)
[2020-07-08] MEDS ORDERED: SULF-289 PO (19:16)
[2020-07-08] MEDS ORDERED: CEPH125S23 PO (19:16)
[2020-07-08 20:00] LABS: BASOPHILS % (AUTO) 1.4 % (0.0-2.0); HEMATOCRIT 42.8 % (41-53); HEMOGLOBIN 14.5 g/dL (13.5-17.5); LYMPHOCYTES # (AUTO) 2.1 K/uL (1.0-4.8); LYMPHOCYTES % (AUTO) 35.6 % (22.0-44.0); MEAN CORPUSCULAR HEMOGLOBIN 28.4 pg (26.0-34.0); MEAN CORPUSCULAR HGB CONC 33.8 G/dL (31.0-37.0); MEAN CORPUSCULAR VOLUME 84 fL (80-100); MONOCYTES # (AUTO) 0.7 K/uL (0.1-1.0); PLATELET COUNT (AUTO) 337 K/uL (150-450); RED CELL DISTRIBUTION WIDTH 14.2 % (11.5-14.5)
[2020-07-08 20:30] LABS: CALCIUM, TOTAL 9.2 mg/dL (8.8-10.5); CREATININE 1.32 mg/dL (0.60-1.30); POTASSIUM 4.3 mmol/L (3.5-5.1)
[2020-07-08 20:36] LABS: BILIRUBIN,TOTAL 0.4 mg/dL (0.1-1.0); TOTAL PROTEIN, SERUM 8.9 g/dL (6.4-8.2)
[2020-07-08 21:56] LABS: COVID AG,FIA SOURCE NASOPHARYNGEAL
[2020-07-08 22:51] LABS: APPEARANCE,URINE CLEAR (CLEAR); BILIRUBIN,URINE NEGATIVE (NEGATIVE); GLUCOSE, URINE (UA) NEGATIVE (NEGATIVE); KETONES,URINE NEGATIVE (NEGATIVE); LEUKOCYTE ESTERASE ,URINE NEGATIVE (NEGATIVE); NITRATE,URINE NEGATIVE (NEGATIVE); OCCULT BLOOD,URINE NEGATIVE (NEGATIVE); PH,URINE 5.5 (5.0-8.0); PROTEIN,URINE POS 1+ (NEGATIVE); UROBILINOGEN,URINE 0.2 mg/dL (<=1.0)
[2020-07-08 22:56] LABS: AMPHET/METH SCREEN,URINE POSITIVE (NEGATIVE); BARBITURATE SCREEN, URINE NEGATIVE (NEGATIVE); BENZODIAZEPINES SCREEN,URINE NEGATIVE (NEGATIVE); CANNABINOID SCREEN,URINE NEGATIVE (NEGATIVE); COCAINE SCREEN,URINE NEGATIVE (NEGATIVE); METHADONE SCREEN, URINE NEGATIVE (NEGATIVE); OPIATE SCREEN,URINE NEGATIVE (NEGATIVE)
[2020-07-08 22:57] LABS: PHENCYCLIDINE SCREEN,URINE NEGATIVE (NEGATIVE)
[2020-07-08] MEDS: LORazepam 2 MG TABLET PO PRN (22:57)
[2020-07-09 01:03] LABS: BACTERIA,URINE Few /HPF (None Seen); RBC,URINE None Seen /HPF (0-2)
[2020-07-09 01:04] LABS: SQUAMOUS EPITHELIAL CELL,UR Rare /LPF (None Seen); URIC ACID CRYSTALS,URINE Many /LPF (None Seen)
[2020-07-09] MEDS ORDERED: PNEUMOCOCCAL VACCINE POLYVALENT 0.5 ML VIAL [PPSV23] IM ONE (01:30)
[2020-07-09] MEDS: ZOLPIDEM TARTRATE 10 MG TABLET PO PRN (02:07)
[2020-07-09 04:01] VITALS: BP 140/90
[2020-07-09] MEDS: LORazepam 2 MG TABLET PO PRN ×2 (05:12→20:55)
[2020-07-09] MEDS: HALOPERIDOL 5 MG TABLET PO PRN (05:12)
[2020-07-09] MEDS ORDERED: MAG HYDROX/AL HYDROX/SIMETH ES 30 ML SUSPENSION UDCUP PO PRN (07:00)
[2020-07-09] MEDS ORDERED: PETROLATUM,WHITE 28 GM JELLY TP PRN (07:00)
[2020-07-09] MEDS ORDERED: OMEPRAZOLE 20 MG CAPSULE PO PRN (07:00)
[2020-07-09] MEDS ORDERED: ACETAMINOPHEN 325 MG TABLET PO PRN (07:00)
[2020-07-09] MEDS ORDERED: ALBUTEROL SULFATE HFA 90 MCG/PUFF 8 GM INHALER IH PRN (07:00)
[2020-07-09] MEDS ORDERED: CloNIDine HCL 0.1 MG TABLET PO PRN (07:00)
[2020-07-09] MEDS ORDERED: ONDANSETRON HCL 4 MG TABLET PO PRN (07:00)
[2020-07-09] MEDS ORDERED: LOPERAMIDE HCL 2 MG CAPSULE PO PRN (07:00)
[2020-07-09] MEDS ORDERED: IBUPROFEN 600 MG TABLET PO PRN (07:00)
[2020-07-09] MEDS ORDERED: DOCUSATE SODIUM 100 MG CAPSULE PO PRN (07:00)
[2020-07-09] MEDS ORDERED: BENZOCAINE/MENTHOL LOZENGE PO PRN (07:00)
[2020-07-09] MEDS ORDERED: BACITRACIN 28 GM OINTMENT TP PRN (07:00)
[2020-07-09] MEDS ORDERED: MAGNESIUM HYDROXIDE SUSPENSION 30 ML UDCUP PO PRN (07:00)
[2020-07-09 08:32] LABS: CHOL/HDL RATIO 3.4 (4.2-7.3)
[2020-07-09] MEDS: ATORVASTATIN CALCIUM 40 MG TABLET PO SCH (10:55)
[2020-07-09] MEDS: ASPIRIN 81 MG CHEWABLE TABLET PO SCH (10:55)
[2020-07-09] MEDS: METOPROLOL TARTRATE 25 MG TABLET PO SCH ×2 (10:55→17:17)
[2020-07-09] MEDS: LISINOPRIL 10 MG TABLET PO SCH (10:55)
[2020-07-09] MEDS: OMEPRAZOLE 20 MG CAPSULE PO SCH (10:56)
[2020-07-09 11:34] VITALS: BP 119/77
[2020-07-09 16:00] VITALS: BP 109/62
[2020-07-09] MEDS: GABAPENTIN 300 MG CAPSULE PO SCH (16:42)
[2020-07-09] MEDS: MIRTAZAPINE 30 MG TABLET PO SCH (20:55)
[2020-07-10 08:00] VITALS: BP 100/69
[2020-07-10] MEDS: ATORVASTATIN CALCIUM 40 MG TABLET PO SCH (09:56)
[2020-07-10] MEDS: BuPROPion HCL XL 150 MG ER TABLET PO SCH (09:56)
[2020-07-10] MEDS: ASPIRIN 81 MG CHEWABLE TABLET PO SCH (09:56)
[2020-07-10] MEDS: FOLIC ACID 1 MG TABLET PO SCH (09:56)
[2020-07-10] MEDS: OMEPRAZOLE 20 MG CAPSULE PO SCH (09:56)
[2020-07-10] MEDS: LISINOPRIL 10 MG TABLET PO SCH (09:57)
[2020-07-10] MEDS: GABAPENTIN 300 MG CAPSULE PO SCH ×3 (09:57→16:58)
[2020-07-10] MEDS: METOPROLOL TARTRATE 25 MG TABLET PO SCH ×2 (09:57→16:57)
[2020-07-10] MEDS: THIAMINE 100 MG TABLET PO SCH (09:57)
[2020-07-10 11:34] VITALS: BP 127/63
[2020-07-10] MEDS: LORazepam 2 MG TABLET PO PRN ×2 (11:37→21:03)
[2020-07-10 18:01] VITALS: BP 140/80
[2020-07-10] MEDS: MIRTAZAPINE 30 MG TABLET PO SCH (21:03)
[2020-07-11 08:48] VITALS: BP 98/62
[2020-07-11] MEDS: ATORVASTATIN CALCIUM 40 MG TABLET PO SCH (09:22)
[2020-07-11] MEDS: THIAMINE 100 MG TABLET PO SCH (09:22)
[2020-07-11] MEDS: FOLIC ACID 1 MG TABLET PO SCH (09:22)
[2020-07-11] MEDS: GABAPENTIN 300 MG CAPSULE PO SCH ×3 (09:22→16:26)
[2020-07-11] MEDS: LISINOPRIL 10 MG TABLET PO SCH (09:22)
[2020-07-11] MEDS: METOPROLOL TARTRATE 25 MG TABLET PO SCH ×2 (09:22→16:26)
[2020-07-11] MEDS: OMEPRAZOLE 20 MG CAPSULE PO SCH (09:22)
[2020-07-11] MEDS: BuPROPion HCL XL 150 MG ER TABLET PO SCH (09:22)
[2020-07-11] MEDS: ASPIRIN 81 MG CHEWABLE TABLET PO SCH (09:22)
[2020-07-11] MEDS: LORazepam 2 MG TABLET PO PRN ×2 (11:23→16:55)
[2020-07-11 16:08] VITALS: BP 131/90
[2020-07-11] MEDS: MIRTAZAPINE 30 MG TABLET PO SCH (20:35)
[2020-07-12 00:25] VITALS: BP 150/92
[2020-07-12] MEDS: LORazepam 2 MG TABLET PO PRN ×4 (00:32→20:35)
[2020-07-12] MEDS: ZOLPIDEM TARTRATE 10 MG TABLET PO PRN ×2 (00:32→22:33)
[2020-07-12] MEDS: ATORVASTATIN CALCIUM 40 MG TABLET PO SCH (08:23)
[2020-07-12] MEDS: OMEPRAZOLE 20 MG CAPSULE PO SCH (08:23)
[2020-07-12] MEDS: BuPROPion HCL XL 150 MG ER TABLET PO SCH (08:23)
[2020-07-12] MEDS: METOPROLOL TARTRATE 25 MG TABLET PO SCH ×2 (08:23→16:17)
[2020-07-12] MEDS: GABAPENTIN 300 MG CAPSULE PO SCH ×3 (08:23→16:18)
[2020-07-12] MEDS: ASPIRIN 81 MG CHEWABLE TABLET PO SCH (08:23)
[2020-07-12] MEDS: FOLIC ACID 1 MG TABLET PO SCH (08:23)
[2020-07-12] MEDS: THIAMINE 100 MG TABLET PO SCH (08:24)
[2020-07-12] MEDS: LISINOPRIL 10 MG TABLET PO SCH (08:24)
[2020-07-12 09:56] VITALS: BP 121/63
[2020-07-12 16:35] VITALS: BP 113/70
[2020-07-12] MEDS: MIRTAZAPINE 30 MG TABLET PO SCH (20:27)
[2020-07-13 08:00] VITALS: BP 114/72
[2020-07-13] MEDS: LISINOPRIL 10 MG TABLET PO SCH (09:36)
[2020-07-13] MEDS: ASPIRIN 81 MG CHEWABLE TABLET PO SCH (09:37)
[2020-07-13] MEDS: METOPROLOL TARTRATE 25 MG TABLET PO SCH ×2 (09:37→17:05)
[2020-07-13] MEDS: FOLIC ACID 1 MG TABLET PO SCH (09:38)
[2020-07-13] MEDS: OMEPRAZOLE 20 MG CAPSULE PO SCH (09:38)
[2020-07-13] MEDS: GABAPENTIN 300 MG CAPSULE PO SCH ×3 (09:38→17:05)
[2020-07-13] MEDS: THIAMINE 100 MG TABLET PO SCH (09:38)
[2020-07-13] MEDS: ATORVASTATIN CALCIUM 40 MG TABLET PO SCH (09:38)
[2020-07-13] MEDS: BuPROPion HCL XL 150 MG ER TABLET PO SCH (09:39)
[2020-07-13] MEDS: LORazepam 2 MG TABLET PO PRN ×2 (09:39→17:08)
[2020-07-13 16:00] VITALS: BP 113/60
[2020-07-13] MEDS: HALOPERIDOL 5 MG TABLET PO PRN (17:08)
[2020-07-13] MEDS: MIRTAZAPINE 30 MG TABLET PO SCH (20:18)
[2020-07-14 08:00] VITALS: BP 129/57
[2020-07-14] MEDS: THIAMINE 100 MG TABLET PO SCH (09:37)
[2020-07-14] MEDS: ASPIRIN 81 MG CHEWABLE TABLET PO SCH (09:37)
[2020-07-14] MEDS: FOLIC ACID 1 MG TABLET PO SCH (09:37)
[2020-07-14] MEDS: OMEPRAZOLE 20 MG CAPSULE PO SCH (09:37)
[2020-07-14] MEDS: BuPROPion HCL XL 150 MG ER TABLET PO SCH (09:37)
[2020-07-14] MEDS: METOPROLOL TARTRATE 25 MG TABLET PO SCH ×2 (09:37→17:50)
[2020-07-14] MEDS: ATORVASTATIN CALCIUM 40 MG TABLET PO SCH (09:37)
[2020-07-14] MEDS: LISINOPRIL 10 MG TABLET PO SCH (09:38)
[2020-07-14] MEDS: GABAPENTIN 300 MG CAPSULE PO SCH ×3 (09:38→17:50)
[2020-07-14] MEDS: LORazepam 2 MG TABLET PO PRN (14:44)
[2020-07-14 16:05] VITALS: BP 81/60
[2020-07-14] MEDS: MIRTAZAPINE 30 MG TABLET PO SCH (20:56)
[2020-07-15] MEDS: BuPROPion HCL XL 150 MG ER TABLET PO SCH (09:15)
[2020-07-15] MEDS: LISINOPRIL 10 MG TABLET PO SCH (09:15)
[2020-07-15] MEDS: FOLIC ACID 1 MG TABLET PO SCH (09:15)
[2020-07-15] MEDS: OMEPRAZOLE 20 MG CAPSULE PO SCH (09:15)
[2020-07-15] MEDS: ASPIRIN 81 MG CHEWABLE TABLET PO SCH (09:15)
[2020-07-15] MEDS: GABAPENTIN 300 MG CAPSULE PO SCH ×3 (09:16→16:40)
[2020-07-15] MEDS: METOPROLOL TARTRATE 25 MG TABLET PO SCH ×2 (09:16→18:24)
[2020-07-15] MEDS: ATORVASTATIN CALCIUM 40 MG TABLET PO SCH (09:16)
[2020-07-15] MEDS: THIAMINE 100 MG TABLET PO SCH (09:16)
[2020-07-15 09:31] VITALS: BP 131/69
[2020-07-15] MEDS: LORazepam 2 MG TABLET PO PRN ×2 (11:56→20:11)
[2020-07-15 16:05] VITALS: BP 97/60
[2020-07-15 17:51] LABS: COVID AG,FIA SOURCE NASOPHARYNGEAL
[2020-07-15 18:24] VITALS: BP 122/72
[2020-07-15] MEDS: MIRTAZAPINE 30 MG TABLET PO SCH (20:11)
[2020-07-16] MEDS: LORazepam 2 MG TABLET PO PRN ×3 (03:15→20:13)
[2020-07-16 03:21] VITALS: BP 140/91
[2020-07-16] MEDS: THIAMINE 100 MG TABLET PO SCH (08:48)
[2020-07-16] MEDS: BuPROPion HCL XL 150 MG ER TABLET PO SCH (08:48)
[2020-07-16] MEDS: OMEPRAZOLE 20 MG CAPSULE PO SCH (08:48)
[2020-07-16] MEDS: ATORVASTATIN CALCIUM 40 MG TABLET PO SCH (08:48)
[2020-07-16] MEDS: FOLIC ACID 1 MG TABLET PO SCH (08:48)
[2020-07-16] MEDS: GABAPENTIN 300 MG CAPSULE PO SCH ×3 (08:49→16:21)
[2020-07-16] MEDS: OMEGA-3/DHA/EPA/FISH OIL 1,000 MG CAPSULE PO SCH (08:49)
[2020-07-16] MEDS: METOPROLOL TARTRATE 25 MG TABLET PO SCH ×2 (08:49→16:21)
[2020-07-16] MEDS: LISINOPRIL 10 MG TABLET PO SCH (08:49)
[2020-07-16] MEDS: ASPIRIN 81 MG CHEWABLE TABLET PO SCH (08:49)
[2020-07-16 09:27] VITALS: BP 125/88
[2020-07-16 16:00] VITALS: BP 148/76
[2020-07-16] MEDS: MIRTAZAPINE 30 MG TABLET PO SCH (20:13)
[2020-07-17] MEDS: OMEGA-3/DHA/EPA/FISH OIL 1,000 MG CAPSULE PO SCH (08:52)
[2020-07-17] MEDS: METOPROLOL TARTRATE 25 MG TABLET PO SCH ×2 (08:52→17:09)
[2020-07-17] MEDS: LISINOPRIL 10 MG TABLET PO SCH (08:52)
[2020-07-17] MEDS: OMEPRAZOLE 20 MG CAPSULE PO SCH (08:52)
[2020-07-17] MEDS: FOLIC ACID 1 MG TABLET PO SCH (08:52)
[2020-07-17] MEDS: GABAPENTIN 300 MG CAPSULE PO SCH ×3 (08:52→17:09)
[2020-07-17] MEDS: ATORVASTATIN CALCIUM 40 MG TABLET PO SCH (08:52)
[2020-07-17] MEDS: THIAMINE 100 MG TABLET PO SCH (08:53)
[2020-07-17] MEDS: BuPROPion HCL XL 150 MG ER TABLET PO SCH (08:53)
[2020-07-17] MEDS: ASPIRIN 81 MG CHEWABLE TABLET PO SCH (08:57)
[2020-07-17] MEDS: LORazepam 2 MG TABLET PO PRN ×3 (08:58→20:43)
[2020-07-17 09:23] VITALS: BP 141/78
[2020-07-17 16:00] VITALS: BP 124/63
[2020-07-17] MEDS: MIRTAZAPINE 30 MG TABLET PO SCH (20:38)
[2020-07-18 09:10] VITALS: BP 140/73
[2020-07-18] MEDS: LISINOPRIL 10 MG TABLET PO SCH (09:57)
[2020-07-18] MEDS: ASPIRIN 81 MG CHEWABLE TABLET PO SCH (09:57)
[2020-07-18] MEDS: GABAPENTIN 300 MG CAPSULE PO SCH ×3 (09:57→16:39)
[2020-07-18] MEDS: BuPROPion HCL XL 150 MG ER TABLET PO SCH (09:58)
[2020-07-18] MEDS: OMEPRAZOLE 20 MG CAPSULE PO SCH (09:58)
[2020-07-18] MEDS: FOLIC ACID 1 MG TABLET PO SCH (09:58)
[2020-07-18] MEDS: THIAMINE 100 MG TABLET PO SCH (09:58)
[2020-07-18] MEDS: METOPROLOL TARTRATE 25 MG TABLET PO SCH ×2 (09:58→16:39)
[2020-07-18] MEDS: OMEGA-3/DHA/EPA/FISH OIL 1,000 MG CAPSULE PO SCH (09:58)
[2020-07-18] MEDS: ATORVASTATIN CALCIUM 40 MG TABLET PO SCH (09:59)
[2020-07-18] MEDS: LORazepam 2 MG TABLET PO PRN ×2 (11:00→18:02)
[2020-07-18 17:00] VITALS: BP 129/65
[2020-07-18] MEDS: MIRTAZAPINE 30 MG TABLET PO SCH (20:13)
[2020-07-18] MEDS: ZOLPIDEM TARTRATE 10 MG TABLET PO PRN (20:43)
[2020-07-19] MEDS: LORazepam 2 MG TABLET PO PRN ×4 (02:39→22:03)
[2020-07-19 09:51] VITALS: BP 125/55
[2020-07-19] MEDS: GABAPENTIN 300 MG CAPSULE PO SCH ×3 (09:51→16:22)
[2020-07-19] MEDS: BuPROPion HCL XL 150 MG ER TABLET PO SCH (09:52)
[2020-07-19] MEDS: ASPIRIN 81 MG CHEWABLE TABLET PO SCH (09:52)
[2020-07-19] MEDS: OMEGA-3/DHA/EPA/FISH OIL 1,000 MG CAPSULE PO SCH (09:52)
[2020-07-19] MEDS: OMEPRAZOLE 20 MG CAPSULE PO SCH (09:52)
[2020-07-19] MEDS: THIAMINE 100 MG TABLET PO SCH (09:52)
[2020-07-19] MEDS: LISINOPRIL 10 MG TABLET PO SCH (09:52)
[2020-07-19] MEDS: ATORVASTATIN CALCIUM 40 MG TABLET PO SCH (09:53)
[2020-07-19] MEDS: FOLIC ACID 1 MG TABLET PO SCH (09:54)
[2020-07-19] MEDS: METOPROLOL TARTRATE 25 MG TABLET PO SCH ×2 (10:00→16:23)
[2020-07-19 16:00] VITALS: BP 116/62
[2020-07-19] MEDS: MIRTAZAPINE 30 MG TABLET PO SCH (20:06)
[2020-07-20] MEDS: FOLIC ACID 1 MG TABLET PO SCH (08:22)
[2020-07-20] MEDS: THIAMINE 100 MG TABLET PO SCH (08:22)
[2020-07-20] MEDS: METOPROLOL TARTRATE 25 MG TABLET PO SCH ×2 (08:22→16:22)
[2020-07-20] MEDS: OMEPRAZOLE 20 MG CAPSULE PO SCH (08:22)
[2020-07-20] MEDS: LISINOPRIL 10 MG TABLET PO SCH (08:22)
[2020-07-20] MEDS: ATORVASTATIN CALCIUM 40 MG TABLET PO SCH (08:22)
[2020-07-20] MEDS: OMEGA-3/DHA/EPA/FISH OIL 1,000 MG CAPSULE PO SCH (08:23)
[2020-07-20] MEDS: ASPIRIN 81 MG CHEWABLE TABLET PO SCH (08:23)
[2020-07-20] MEDS: BuPROPion HCL XL 150 MG ER TABLET PO SCH (08:24)
[2020-07-20] MEDS: GABAPENTIN 300 MG CAPSULE PO SCH ×3 (08:26→16:22)
[2020-07-20 08:45] VITALS: BP 111/75
[2020-07-20] MEDS: LORazepam 2 MG TABLET PO PRN ×2 (09:03→13:04)
[2020-07-20 16:00] VITALS: BP 135/66
[2020-07-20] MEDS: MIRTAZAPINE 30 MG TABLET PO SCH (21:05)
[2020-07-21 01:22] VITALS: BP 122/77
[2020-07-21] MEDS: THIAMINE 100 MG TABLET PO SCH (08:41)
[2020-07-21] MEDS: ASPIRIN 81 MG CHEWABLE TABLET PO SCH (08:41)
[2020-07-21] MEDS: LISINOPRIL 10 MG TABLET PO SCH (08:41)
[2020-07-21] MEDS: GABAPENTIN 300 MG CAPSULE PO SCH ×3 (08:41→16:08)
[2020-07-21] MEDS: OMEPRAZOLE 20 MG CAPSULE PO SCH (08:41)
[2020-07-21] MEDS: OMEGA-3/DHA/EPA/FISH OIL 1,000 MG CAPSULE PO SCH (08:41)
[2020-07-21] MEDS: ATORVASTATIN CALCIUM 40 MG TABLET PO SCH (08:42)
[2020-07-21] MEDS: FOLIC ACID 1 MG TABLET PO SCH (08:42)
[2020-07-21] MEDS: METOPROLOL TARTRATE 25 MG TABLET PO SCH ×2 (08:42→16:54)
[2020-07-21] MEDS: BuPROPion HCL XL 150 MG ER TABLET PO SCH (08:42)
[2020-07-21 10:10] VITALS: BP 114/71
[2020-07-21] MEDS: LORazepam 2 MG TABLET PO PRN ×2 (10:28→23:31)
[2020-07-21 16:00] VITALS: BP 109/64
[2020-07-21] MEDS: MIRTAZAPINE 30 MG TABLET PO SCH (20:53)
[2020-07-21] MEDS: ZOLPIDEM TARTRATE 10 MG TABLET PO PRN (23:31)
[2020-07-22] VITALS: BP 121/72
[2020-07-22] MEDS: OMEPRAZOLE 20 MG CAPSULE PO SCH (09:06)
[2020-07-22] MEDS: OMEGA-3/DHA/EPA/FISH OIL 1,000 MG CAPSULE PO SCH (09:06)
[2020-07-22] MEDS: BuPROPion HCL XL 150 MG ER TABLET PO SCH (09:07)
[2020-07-22] MEDS: FOLIC ACID 1 MG TABLET PO SCH (09:07)
[2020-07-22] MEDS: ATORVASTATIN CALCIUM 40 MG TABLET PO SCH (09:07)
[2020-07-22] MEDS: ASPIRIN 81 MG CHEWABLE TABLET PO SCH (09:07)
[2020-07-22] MEDS: THIAMINE 100 MG TABLET PO SCH (09:08)
[2020-07-22] MEDS: LISINOPRIL 10 MG TABLET PO SCH (09:08)
[2020-07-22] MEDS: GABAPENTIN 300 MG CAPSULE PO SCH ×3 (09:08→16:10)
[2020-07-22] MEDS: METOPROLOL TARTRATE 25 MG TABLET PO SCH ×2 (09:09→16:11)
[2020-07-22 09:10] VITALS: BP 143/80
[2020-07-22] MEDS: LORazepam 2 MG TABLET PO PRN ×2 (10:10→18:01)
[2020-07-22 15:57] LABS: COVID AG,FIA SOURCE NASOPHARYNGEAL
[2020-07-22 16:42] VITALS: BP 125/77
[2020-07-22] MEDS: MIRTAZAPINE 30 MG TABLET PO SCH (20:42)
[2020-07-23 08:00] VITALS: BP 121/59
[2020-07-23] MEDS: OMEGA-3/DHA/EPA/FISH OIL 1,000 MG CAPSULE PO SCH (08:54)
[2020-07-23] MEDS: ASPIRIN 81 MG CHEWABLE TABLET PO SCH (08:54)
[2020-07-23] MEDS: FOLIC ACID 1 MG TABLET PO SCH (08:55)
[2020-07-23] MEDS: METOPROLOL TARTRATE 25 MG TABLET PO SCH ×2 (08:55→16:47)
[2020-07-23] MEDS: THIAMINE 100 MG TABLET PO SCH (08:56)
[2020-07-23] MEDS: GABAPENTIN 300 MG CAPSULE PO SCH ×3 (08:56→16:47)
[2020-07-23] MEDS: OMEPRAZOLE 20 MG CAPSULE PO SCH (08:56)
[2020-07-23] MEDS: BuPROPion HCL XL 150 MG ER TABLET PO SCH (08:56)
[2020-07-23] MEDS: ATORVASTATIN CALCIUM 40 MG TABLET PO SCH (08:56)
[2020-07-23] MEDS: LISINOPRIL 10 MG TABLET PO SCH (08:57)
[2020-07-23] MEDS: LORazepam 2 MG TABLET PO PRN ×2 (11:03→18:35)
[2020-07-23 16:20] VITALS: BP 128/72
[2020-07-23] MEDS: MIRTAZAPINE 30 MG TABLET PO SCH (20:33)
[2020-07-24 07:05] VITALS: BP 122/85
[2020-07-24] MEDS: LORazepam 2 MG TABLET PO PRN ×3 (07:05→20:39)
[2020-07-24] MEDS: BuPROPion HCL XL 150 MG ER TABLET PO SCH (08:54)
[2020-07-24] MEDS: FOLIC ACID 1 MG TABLET PO SCH (08:54)
[2020-07-24] MEDS: OMEPRAZOLE 20 MG CAPSULE PO SCH (08:54)
[2020-07-24] MEDS: GABAPENTIN 300 MG CAPSULE PO SCH ×3 (08:54→16:26)
[2020-07-24] MEDS: OMEGA-3/DHA/EPA/FISH OIL 1,000 MG CAPSULE PO SCH (08:54)
[2020-07-24] MEDS: ASPIRIN 81 MG CHEWABLE TABLET PO SCH (08:54)
[2020-07-24] MEDS: ATORVASTATIN CALCIUM 40 MG TABLET PO SCH (08:54)
[2020-07-24] MEDS: METOPROLOL TARTRATE 25 MG TABLET PO SCH ×2 (08:54→16:26)
[2020-07-24] MEDS: THIAMINE 100 MG TABLET PO SCH (08:54)
[2020-07-24] MEDS: LISINOPRIL 10 MG TABLET PO SCH (08:54)
[2020-07-24 16:00] VITALS: BP 116/91
[2020-07-24] MEDS: MIRTAZAPINE 30 MG TABLET PO SCH (20:39)
[2020-07-25] MEDS: LORazepam 2 MG TABLET PO PRN ×3 (07:01→17:04)
[2020-07-25 08:00] VITALS: BP 107/72
[2020-07-25] MEDS: LISINOPRIL 10 MG TABLET PO SCH (08:15)
[2020-07-25] MEDS: METOPROLOL TARTRATE 25 MG TABLET PO SCH ×2 (08:15→16:19)
[2020-07-25] MEDS: GABAPENTIN 300 MG CAPSULE PO SCH ×3 (08:15→16:19)
[2020-07-25] MEDS: ATORVASTATIN CALCIUM 40 MG TABLET PO SCH (08:15)
[2020-07-25] MEDS: OMEPRAZOLE 20 MG CAPSULE PO SCH (08:15)
[2020-07-25] MEDS: BuPROPion HCL XL 150 MG ER TABLET PO SCH (08:15)
[2020-07-25] MEDS: OMEGA-3/DHA/EPA/FISH OIL 1,000 MG CAPSULE PO SCH (08:16)
[2020-07-25] MEDS: FOLIC ACID 1 MG TABLET PO SCH (08:16)
[2020-07-25] MEDS: ASPIRIN 81 MG CHEWABLE TABLET PO SCH (08:16)
[2020-07-25] MEDS: THIAMINE 100 MG TABLET PO SCH (08:16)
[2020-07-25 16:13] VITALS: BP 127/84
[2020-07-25] MEDS: MIRTAZAPINE 30 MG TABLET PO SCH (20:34)
[2020-07-26] MEDS: FOLIC ACID 1 MG TABLET PO SCH (08:43)
[2020-07-26] MEDS: THIAMINE 100 MG TABLET PO SCH (08:43)
[2020-07-26] MEDS: OMEGA-3/DHA/EPA/FISH OIL 1,000 MG CAPSULE PO SCH (08:43)
[2020-07-26] MEDS: ASPIRIN 81 MG CHEWABLE TABLET PO SCH (08:43)
[2020-07-26] MEDS: ATORVASTATIN CALCIUM 40 MG TABLET PO SCH (08:44)
[2020-07-26] MEDS: GABAPENTIN 300 MG CAPSULE PO SCH ×3 (08:44→16:23)
[2020-07-26] MEDS: OMEPRAZOLE 20 MG CAPSULE PO SCH (08:44)
[2020-07-26] MEDS: BuPROPion HCL XL 150 MG ER TABLET PO SCH (08:44)
[2020-07-26] MEDS: METOPROLOL TARTRATE 25 MG TABLET PO SCH ×2 (08:44→16:22)
[2020-07-26] MEDS: LISINOPRIL 10 MG TABLET PO SCH (08:44)
[2020-07-26] MEDS: LORazepam 2 MG TABLET PO PRN ×2 (08:49→15:41)
[2020-07-26 08:53] VITALS: BP 119/67
[2020-07-26 16:23] VITALS: BP 127/81
[2020-07-26] MEDS: MIRTAZAPINE 30 MG TABLET PO SCH (20:24)
[2020-07-27] MEDS: LORazepam 2 MG TABLET PO PRN ×3 (00:35→15:50)
[2020-07-27 08:36] VITALS: BP 112/62
[2020-07-27] MEDS: OMEGA-3/DHA/EPA/FISH OIL 1,000 MG CAPSULE PO SCH (09:31)
[2020-07-27] MEDS: GABAPENTIN 300 MG CAPSULE PO SCH ×3 (09:32→17:04)
[2020-07-27] MEDS: ASPIRIN 81 MG CHEWABLE TABLET PO SCH (09:32)
[2020-07-27] MEDS: LISINOPRIL 10 MG TABLET PO SCH (09:32)
[2020-07-27] MEDS: BuPROPion HCL XL 150 MG ER TABLET PO SCH (09:33)
[2020-07-27] MEDS: ATORVASTATIN CALCIUM 40 MG TABLET PO SCH (09:33)
[2020-07-27] MEDS: FOLIC ACID 1 MG TABLET PO SCH (09:33)
[2020-07-27] MEDS: OMEPRAZOLE 20 MG CAPSULE PO SCH (09:33)
[2020-07-27] MEDS: THIAMINE 100 MG TABLET PO SCH (09:33)
[2020-07-27] MEDS: METOPROLOL TARTRATE 25 MG TABLET PO SCH ×2 (09:33→17:04)
[2020-07-27 16:00] VITALS: BP 138/94
[2020-07-27] MEDS: MIRTAZAPINE 30 MG TABLET PO SCH (20:37)
[2020-07-28 06:43] VITALS: BP 131/76
[2020-07-28] MEDS: LORazepam 2 MG TABLET PO PRN ×2 (06:45→14:58)
[2020-07-28 08:00] VITALS: BP 117/64
[2020-07-28] MEDS: LISINOPRIL 10 MG TABLET PO SCH (10:20)
[2020-07-28] MEDS: OMEGA-3/DHA/EPA/FISH OIL 1,000 MG CAPSULE PO SCH (10:20)
[2020-07-28] MEDS: ASPIRIN 81 MG CHEWABLE TABLET PO SCH (10:20)
[2020-07-28] MEDS: GABAPENTIN 300 MG CAPSULE PO SCH ×3 (10:20→17:07)
[2020-07-28] MEDS: OMEPRAZOLE 20 MG CAPSULE PO SCH (10:20)
[2020-07-28] MEDS: FOLIC ACID 1 MG TABLET PO SCH (10:20)
[2020-07-28] MEDS: BuPROPion HCL XL 150 MG ER TABLET PO SCH (10:20)
[2020-07-28] MEDS: THIAMINE 100 MG TABLET PO SCH (10:20)
[2020-07-28] MEDS: ATORVASTATIN CALCIUM 40 MG TABLET PO SCH (10:20)
[2020-07-28] MEDS: METOPROLOL TARTRATE 25 MG TABLET PO SCH ×2 (10:20→17:49)
[2020-07-28 16:00] VITALS: BP 108/73
[2020-07-28] MEDS: MIRTAZAPINE 30 MG TABLET PO SCH (20:36)
[2020-07-29 00:15] VITALS: BP 144/76
[2020-07-29] MEDS: LORazepam 2 MG TABLET PO PRN ×3 (00:21→14:18)
[2020-07-29] MEDS: ZOLPIDEM TARTRATE 10 MG TABLET PO PRN (00:21)
[2020-07-29] MEDS: ASPIRIN 81 MG CHEWABLE TABLET PO SCH (09:19)
[2020-07-29] MEDS: OMEPRAZOLE 20 MG CAPSULE PO SCH (09:19)
[2020-07-29] MEDS: BuPROPion HCL XL 150 MG ER TABLET PO SCH (09:19)
[2020-07-29] MEDS: LISINOPRIL 10 MG TABLET PO SCH (09:19)
[2020-07-29] MEDS: METOPROLOL TARTRATE 25 MG TABLET PO SCH (09:19)
[2020-07-29] MEDS: FOLIC ACID 1 MG TABLET PO SCH (09:20)
[2020-07-29 09:21] VITALS: BP 121/79
[2020-07-29] MEDS: GABAPENTIN 300 MG CAPSULE PO SCH ×2 (09:21→14:18)
[2020-07-29] MEDS: THIAMINE 100 MG TABLET PO SCH (09:21)
[2020-07-29] MEDS: OMEGA-3/DHA/EPA/FISH OIL 1,000 MG CAPSULE PO SCH (09:21)
[2020-07-29] MEDS: ATORVASTATIN CALCIUM 40 MG TABLET PO SCH (09:22)
[2020-07-29] MEDS ORDERED: OMEG-135 PO (14:29)
[2020-07-29] MEDS ORDERED: FOLI0.4T6 PO (14:29)
[2020-07-29] MEDS ORDERED: THIA100T80 PO (14:29)
[2020-07-29 17:28] LABS: COVID AG,FIA SOURCE NASOPHARYNGEAL
== END 2020-07-29 16:30 | disposition home or self-care (01) | DRG 750 ==
LOC: EMS 17:46 → 3EI 21:15
PROVIDERS: ADMIT Psychiatry & Neurology Psychiatry; ATTEND Psychiatry & Neurology Psychiatry
DX: F25.1 Schizoaffective disorder, depressive type (principal); R45.851 Suicidal ideations; J44.9 Chronic obstructive pulmonary disease, unspecified; K21.9 Gastro-esophageal reflux disease without esophagitis; I10 Essential (primary) hypertension; G47.00 Insomnia, unspecified; K59.00 Constipation, unspecified; Z85.819 Personal history of malignant neoplasm of unspecified site of lip, oral cavity, and pharynx; F19.10 Other psychoactive substance abuse, uncomplicated; F41.9 Anxiety disorder, unspecified; F32.9 Major depressive disorder, single episode, unspecified; B86 Scabies; D49.6 Neoplasm of unspecified behavior of brain; Z99.3 Dependence on wheelchair; Z20.828 Contact with and (suspected) exposure to other viral communicable diseases; Z28.21 Immunization not carried out because of patient refusal
CPT/HCPCS: 87081; 87426; G0480

== ENCOUNTER 2020-07-31 03:02 | Emergency (ER) | payer MEDICAID, OTHER ==
[~2020-07-31] VITALS: Ht 182.9 cm; Wt 145.4 kg
[~2020-07-31 03:02] MED LIST changes: -ESCI-8 PO; +FOLI0.4T6 PO; +OMEG-135 PO; -QUET200T5 PO; +THIA100T80 PO
[2020-07-31 03:09] VITALS: BP 210/114
[2020-07-31 04:31] LABS: BASOPHILS % (AUTO) 0.3 % (0.0-2.0); HEMATOCRIT 41.4 % (41-53); HEMOGLOBIN 13.8 g/dL (13.5-17.5); LYMPHOCYTES # (AUTO) 3.2 K/uL (1.0-4.8); LYMPHOCYTES % (AUTO) 23.9 % (22.0-44.0); MEAN CORPUSCULAR HEMOGLOBIN 27.4 pg (26.0-34.0); MEAN CORPUSCULAR HGB CONC 33.4 G/dL (31.0-37.0); MEAN CORPUSCULAR VOLUME 82 fL (80-100); MONOCYTES # (AUTO) 1.4 K/uL (0.1-1.0); MONOCYTES % (AUTO) 10.4 % (2.0-9.0); NEUTROPHILS # (AUTO) 8.2 K/uL (1.8-7.7); NEUTROPHILS % (AUTO) 61.4 % (40.0-70.0); PLATELET COUNT (AUTO) 326 K/uL (150-450); RED BLOOD CELL COUNT(AUTO) 5.04 MIL/uL (4.50-5.90); RED CELL DISTRIBUTION WIDTH 13.9 % (11.5-14.5)
[2020-07-31 04:40] LABS: ANION GAP 9 mmol/L (8-16); CALCIUM, TOTAL 8.7 mg/dL (8.8-10.5); CARBON DIOXIDE 26 mmol/L (22-29); CHLORIDE 95 mmol/L (98-107); CREATININE 1.18 mg/dL (0.60-1.30); GLOMERULAR FILTR. RATE CALC > 60 mL/min (>60); GLUCOSE,RANDOM 132 mg/dL (70-110); POTASSIUM 4.7 mmol/L (3.5-5.1); SODIUM SERUM 130 mmol/L (136-145); UREA NITROGEN, BLOOD 20 mg/dL (7-18)
[2020-07-31 04:44] LABS: ALANINE AMINOTRANSFERASE 31 U/L (12-78); ALBUMIN 3.7 g/dL (3.4-5.0); ALKALINE PHOSPHATASE 81 U/L (46-116); ASPARTATE AMINOTRANSFERASE 24 U/L (15-37); BILIRUBIN,TOTAL 0.5 mg/dL (0.1-1.0); TOTAL PROTEIN, SERUM 8.3 g/dL (6.4-8.2)
== END 2020-07-31 05:35 | disposition left against medical advice (07) ==
LOC: EMS 03:03
DX: R45.851 Suicidal ideations (principal); F31.9 Bipolar disorder, unspecified; I10 Essential (primary) hypertension; F15.90 Other stimulant use, unspecified, uncomplicated
CPT/HCPCS: 80053; 85025; 99284; G0480

== ENCOUNTER 2020-10-03 21:25 | Inpatient (IN) | payer MEDICAID, OTHER ==
[~2020-10-03] VITALS: Ht 182.9 cm; Wt 152.9 kg
[~2020-10-03 21:25] MED LIST changes: -ASPI-1111 PO; +ASPI-1444 PO; -LISI-661 PO; +LISI-893 PO
[2020-10-03] MEDS ORDERED: QUET100T PO (21:36)
[2020-10-03 23:42] LABS: BASOPHILS % (AUTO) 0.7 % (0.0-2.0); EOSINOPHILS % (AUTO) 1.8 % (1.0-6.0); HEMATOCRIT 40.6 % (41-53); HEMOGLOBIN 13.7 g/dL (13.5-17.5); LYMPHOCYTES # (AUTO) 4.7 K/uL (1.0-4.8); LYMPHOCYTES % (AUTO) 35.7 % (22.0-44.0); MEAN CORPUSCULAR HEMOGLOBIN 27.7 pg (26.0-34.0); MEAN CORPUSCULAR HGB CONC 33.6 G/dL (31.0-37.0); MEAN CORPUSCULAR VOLUME 83 fL (80-100); MONOCYTES # (AUTO) 1.8 K/uL (0.1-1.0); MONOCYTES % (AUTO) 13.8 % (2.0-9.0); NEUTROPHILS # (AUTO) 6.4 K/uL (1.8-7.7); PLATELET COUNT (AUTO) 308 K/uL (150-450); RED BLOOD CELL COUNT(AUTO) 4.93 MIL/uL (4.50-5.90); RED CELL DISTRIBUTION WIDTH 15.2 % (11.5-14.5)
[2020-10-03 23:45] LABS: COVID AG,FIA SOURCE NASAL SWAB
[2020-10-03 23:52] LABS: CALCIUM, TOTAL 9.5 mg/dL (8.8-10.5); CREATININE 1.41 mg/dL (0.60-1.30); POTASSIUM 4.2 mmol/L (3.5-5.1)
[2020-10-03 23:58] LABS: ALBUMIN 4.3 g/dL (3.4-5.0); BILIRUBIN,TOTAL 0.4 mg/dL (0.1-1.0); TOTAL PROTEIN, SERUM 8.9 g/dL (6.4-8.2)
[2020-10-04] MEDS ORDERED: OLANZapine 5 MG RAPDIS TABLET PO PRN (00:45)
[2020-10-04] MEDS: LORazepam 2 MG TABLET PO PRN ×4 (03:25→17:54)
[2020-10-04] MEDS: ZOLPIDEM TARTRATE 10 MG TABLET PO PRN ×2 (03:25→20:22)
[2020-10-04 04:14] VITALS: BP 138/82
[2020-10-04] MEDS ORDERED: PNEUMOCOCCAL VACCINE POLYVALENT 0.5 ML VIAL [PPSV23] IM ONE (05:15)
[2020-10-04] MEDS ORDERED: MAG HYDROX/AL HYDROX/SIMETH ES 30 ML SUSPENSION UDCUP PO PRN (06:30)
[2020-10-04] MEDS ORDERED: NICOTINE 14 MG/24 HOUR PATCH TD PRN (06:30)
[2020-10-04] MEDS ORDERED: GuaiFENesin/D-METHORPHAN [SUGAR-FREE] 200-20MG/10 ML SYRUP UDCUP PO PRN (06:30)
[2020-10-04] MEDS ORDERED: LOPERAMIDE HCL 2 MG CAPSULE PO PRN (06:30)
[2020-10-04] MEDS ORDERED: ACETAMINOPHEN 325 MG TABLET PO PRN (06:30)
[2020-10-04] MEDS ORDERED: ALBUTEROL SULFATE HFA 90 MCG/PUFF 8 GM INHALER IH PRN (06:30)
[2020-10-04] MEDS ORDERED: DOCUSATE SODIUM 100 MG CAPSULE PO PRN (06:30)
[2020-10-04] MEDS ORDERED: PETROLATUM,WHITE 28 GM JELLY TP PRN (06:30)
[2020-10-04] MEDS ORDERED: MAGNESIUM HYDROXIDE SUSPENSION 30 ML UDCUP PO PRN (06:30)
[2020-10-04] MEDS ORDERED: ONDANSETRON HCL 4 MG TABLET PO PRN (06:30)
[2020-10-04] MEDS ORDERED: CloNIDine HCL 0.1 MG TABLET PO PRN (06:30)
[2020-10-04 08:09] VITALS: BP 103/68
[2020-10-04] MEDS: OMEPRAZOLE 20 MG CAPSULE PO SCH (09:00)
[2020-10-04] MEDS ORDERED: FOLIC ACID 0.4 MG TABLET PO SCH (09:00)
[2020-10-04] MEDS: ASPIRIN 81 MG DR TABLET PO SCH (09:04)
[2020-10-04] MEDS: GABAPENTIN 300 MG CAPSULE PO SCH ×3 (09:04→17:53)
[2020-10-04] MEDS: OMEGA-3/DHA/EPA/FISH OIL 1,000 MG CAPSULE PO SCH (09:04)
[2020-10-04] MEDS: METOPROLOL TARTRATE 25 MG TABLET PO SCH ×2 (09:04→17:53)
[2020-10-04] MEDS: ATORVASTATIN CALCIUM 40 MG TABLET PO SCH (09:04)
[2020-10-04] MEDS: LISINOPRIL 10 MG TABLET PO SCH (09:04)
[2020-10-04] MEDS: IBUPROFEN 400 MG TABLET PO PRN (09:05)
[2020-10-04] MEDS ORDERED: FOLI-130 PO (13:48)
[2020-10-04 16:04] VITALS: BP 106/64
[2020-10-04 16:33] VITALS: BP 106/64
[2020-10-04] MEDS: BuPROPion HCL 150 MG SR TABLET PO SCH (17:54)
[2020-10-04] MEDS: BACITRACIN 28 GM OINTMENT TP SCH (18:39)
[2020-10-04] MEDS: MIRTAZAPINE 30 MG TABLET PO SCH (20:22)
[2020-10-04] MEDS: OLANZapine 7.5 MG TABLET PO SCH (20:22)
[2020-10-05 05:54] VITALS: BP 101/61
[2020-10-05 09:18] LABS: HEMOGLOBIN A1C 5.8 % (3.8-5.6)
[2020-10-05 09:54] LABS: CHOL/HDL RATIO 3.8 (4.2-7.3); THYROID STIMULATING HORMONE 1.73 uIU/mL (0.36-3.74)
[2020-10-05] MEDS: LISINOPRIL 10 MG TABLET PO SCH (10:00)
[2020-10-05] MEDS: OMEGA-3/DHA/EPA/FISH OIL 1,000 MG CAPSULE PO SCH (10:00)
[2020-10-05] MEDS: BuPROPion HCL 150 MG SR TABLET PO SCH ×2 (10:00→16:56)
[2020-10-05] MEDS: ATORVASTATIN CALCIUM 40 MG TABLET PO SCH (10:00)
[2020-10-05] MEDS: OMEPRAZOLE 20 MG CAPSULE PO SCH (10:00)
[2020-10-05] MEDS: ASPIRIN 81 MG DR TABLET PO SCH (10:01)
[2020-10-05] MEDS: FOLIC ACID 1 MG TABLET PO SCH (10:01)
[2020-10-05] MEDS: METOPROLOL TARTRATE 25 MG TABLET PO SCH ×2 (10:01→16:56)
[2020-10-05] MEDS: GABAPENTIN 300 MG CAPSULE PO SCH ×3 (10:06→16:56)
[2020-10-05] MEDS: BACITRACIN 28 GM OINTMENT TP SCH ×2 (10:07→16:58)
[2020-10-05] MEDS: LORazepam 2 MG TABLET PO PRN (16:56)
[2020-10-05 17:41] VITALS: BP 114/57
[2020-10-05] MEDS: MIRTAZAPINE 30 MG TABLET PO SCH (20:31)
[2020-10-05] MEDS: OLANZapine 7.5 MG TABLET PO SCH (20:31)
[2020-10-06 04:46] VITALS: BP 116/61
[2020-10-06 08:43] VITALS: BP 118/68
[2020-10-06] MEDS: OMEPRAZOLE 20 MG CAPSULE PO SCH (09:30)
[2020-10-06] MEDS: LORazepam 2 MG TABLET PO PRN ×3 (09:30→20:30)
[2020-10-06] MEDS: METOPROLOL TARTRATE 25 MG TABLET PO SCH ×2 (09:30→16:37)
[2020-10-06] MEDS: OMEGA-3/DHA/EPA/FISH OIL 1,000 MG CAPSULE PO SCH (09:30)
[2020-10-06] MEDS: GABAPENTIN 300 MG CAPSULE PO SCH ×3 (09:30→16:38)
[2020-10-06] MEDS: BuPROPion HCL 150 MG SR TABLET PO SCH ×2 (09:30→16:37)
[2020-10-06] MEDS: ATORVASTATIN CALCIUM 40 MG TABLET PO SCH (09:30)
[2020-10-06] MEDS: LISINOPRIL 10 MG TABLET PO SCH (09:30)
[2020-10-06] MEDS: FOLIC ACID 1 MG TABLET PO SCH (09:30)
[2020-10-06] MEDS: ASPIRIN 81 MG DR TABLET PO SCH (09:30)
[2020-10-06] MEDS: BACITRACIN 28 GM OINTMENT TP SCH ×2 (09:57→19:28)
[2020-10-06 17:23] VITALS: BP 113/73
[2020-10-06] MEDS: MIRTAZAPINE 30 MG TABLET PO SCH (21:00)
[2020-10-06] MEDS: OLANZapine 7.5 MG TABLET PO SCH (21:01)
[2020-10-07 06:58] VITALS: BP 110/68
[2020-10-07 08:44] VITALS: BP 111/67
[2020-10-07] MEDS: ASPIRIN 81 MG DR TABLET PO SCH (09:38)
[2020-10-07] MEDS: FOLIC ACID 1 MG TABLET PO SCH (09:38)
[2020-10-07] MEDS: LISINOPRIL 10 MG TABLET PO SCH (09:38)
[2020-10-07] MEDS: METOPROLOL TARTRATE 25 MG TABLET PO SCH ×2 (09:38→18:13)
[2020-10-07] MEDS: OMEPRAZOLE 20 MG CAPSULE PO SCH (09:38)
[2020-10-07] MEDS: ATORVASTATIN CALCIUM 40 MG TABLET PO SCH (09:38)
[2020-10-07] MEDS: OMEGA-3/DHA/EPA/FISH OIL 1,000 MG CAPSULE PO SCH (09:38)
[2020-10-07] MEDS: GABAPENTIN 300 MG CAPSULE PO SCH ×3 (09:39→18:00)
[2020-10-07] MEDS: BuPROPion HCL 150 MG SR TABLET PO SCH ×2 (09:39→17:00)
[2020-10-07] MEDS: LORazepam 2 MG TABLET PO PRN (09:49)
[2020-10-07] MEDS: BACITRACIN 28 GM OINTMENT TP SCH ×2 (09:49→17:00)
[2020-10-07 20:03] VITALS: BP 143/74
[2020-10-07] MEDS: OLANZapine 7.5 MG TABLET PO SCH (21:45)
[2020-10-07] MEDS: MIRTAZAPINE 30 MG TABLET PO SCH (21:45)
[2020-10-08 08:00] VITALS: BP 115/58
[2020-10-08] MEDS: METOPROLOL TARTRATE 25 MG TABLET PO SCH ×2 (09:00→16:36)
[2020-10-08] MEDS: BuPROPion HCL 150 MG SR TABLET PO SCH ×2 (09:00→16:38)
[2020-10-08] MEDS: ASPIRIN 81 MG DR TABLET PO SCH (09:00)
[2020-10-08] MEDS: FOLIC ACID 1 MG TABLET PO SCH (09:00)
[2020-10-08] MEDS: LISINOPRIL 10 MG TABLET PO SCH (09:00)
[2020-10-08] MEDS: DOXYCYCLINE HYCLATE 100 MG TABLET PO SCH ×2 (09:00→16:37)
[2020-10-08] MEDS: OMEGA-3/DHA/EPA/FISH OIL 1,000 MG CAPSULE PO SCH (09:00)
[2020-10-08] MEDS: OMEPRAZOLE 20 MG CAPSULE PO SCH (09:00)
[2020-10-08] MEDS: ATORVASTATIN CALCIUM 40 MG TABLET PO SCH (09:00)
[2020-10-08] MEDS: GABAPENTIN 300 MG CAPSULE PO SCH ×3 (09:03→16:37)
[2020-10-08] MEDS: LORazepam 2 MG TABLET PO PRN ×3 (09:06→23:47)
[2020-10-08] MEDS: BACITRACIN 28 GM OINTMENT TP SCH ×2 (12:19→16:41)
[2020-10-08] MEDS: MIRTAZAPINE 30 MG TABLET PO SCH (20:21)
[2020-10-08] MEDS: OLANZapine 7.5 MG TABLET PO SCH (20:21)
[2020-10-08] MEDS: ZOLPIDEM TARTRATE 10 MG TABLET PO PRN (23:02)
[2020-10-09] MEDS: ASPIRIN 81 MG DR TABLET PO SCH (07:51)
[2020-10-09] MEDS: ATORVASTATIN CALCIUM 40 MG TABLET PO SCH (07:51)
[2020-10-09] MEDS: GABAPENTIN 300 MG CAPSULE PO SCH ×3 (07:51→16:45)
[2020-10-09] MEDS: BuPROPion HCL 150 MG SR TABLET PO SCH ×2 (07:51→16:45)
[2020-10-09] MEDS: LISINOPRIL 10 MG TABLET PO SCH (07:51)
[2020-10-09] MEDS: FOLIC ACID 1 MG TABLET PO SCH (07:51)
[2020-10-09] MEDS: LORazepam 2 MG TABLET PO PRN ×2 (07:51→13:25)
[2020-10-09] MEDS: OMEGA-3/DHA/EPA/FISH OIL 1,000 MG CAPSULE PO SCH (07:51)
[2020-10-09] MEDS: DOXYCYCLINE HYCLATE 100 MG TABLET PO SCH ×2 (07:52→16:45)
[2020-10-09] MEDS: OMEPRAZOLE 20 MG CAPSULE PO SCH (07:53)
[2020-10-09] MEDS: METOPROLOL TARTRATE 25 MG TABLET PO SCH ×2 (07:53→16:44)
[2020-10-09 08:00] VITALS: BP 149/100
[2020-10-09 10:53] VITALS: BP 145/100
[2020-10-09] MEDS: IBUPROFEN 400 MG TABLET PO PRN (10:53)
[2020-10-09 10:55] LABS: COVID AG,FIA SOURCE NASOPHARYNGEAL
[2020-10-09] MEDS: BACITRACIN 28 GM OINTMENT TP SCH ×2 (11:37→16:45)
[2020-10-09 11:53] VITALS: BP 123/74
[2020-10-09 13:23] VITALS: BP 123/74
[2020-10-09 16:19] VITALS: BP 132/86
[2020-10-09] MEDS: MIRTAZAPINE 30 MG TABLET PO SCH (21:18)
[2020-10-09] MEDS: OLANZapine 7.5 MG TABLET PO SCH (21:18)
[2020-10-10 08:00] VITALS: BP 122/68
[2020-10-10] MEDS: MULTIVITAMINS WITH MINERALS, THERAPEUTIC TABLET PO SCH (08:21)
[2020-10-10] MEDS: GABAPENTIN 300 MG CAPSULE PO SCH ×3 (08:21→16:50)
[2020-10-10] MEDS: ASPIRIN 81 MG DR TABLET PO SCH (08:21)
[2020-10-10] MEDS: OMEGA-3/DHA/EPA/FISH OIL 1,000 MG CAPSULE PO SCH (08:21)
[2020-10-10] MEDS: FOLIC ACID 1 MG TABLET PO SCH (08:21)
[2020-10-10] MEDS: LISINOPRIL 10 MG TABLET PO SCH (08:21)
[2020-10-10] MEDS: OMEPRAZOLE 20 MG CAPSULE PO SCH (08:21)
[2020-10-10] MEDS: DOXYCYCLINE HYCLATE 100 MG TABLET PO SCH ×2 (08:22→16:50)
[2020-10-10] MEDS: METOPROLOL TARTRATE 25 MG TABLET PO SCH ×2 (08:22→16:50)
[2020-10-10] MEDS: BuPROPion HCL 150 MG SR TABLET PO SCH ×2 (08:22→16:50)
[2020-10-10] MEDS: ATORVASTATIN CALCIUM 40 MG TABLET PO SCH (08:22)
[2020-10-10] MEDS: LORazepam 2 MG TABLET PO PRN ×3 (10:59→16:50)
[2020-10-10] MEDS: BACITRACIN 28 GM OINTMENT TP SCH ×2 (13:27→16:51)
[2020-10-10 16:42] VITALS: BP 100/70
[2020-10-10] MEDS: MIRTAZAPINE 30 MG TABLET PO SCH (20:28)
[2020-10-10] MEDS: OLANZapine 7.5 MG TABLET PO SCH (20:28)
[2020-10-11] MEDS: LORazepam 2 MG TABLET PO PRN ×3 (03:07→17:18)
[2020-10-11] MEDS: METOPROLOL TARTRATE 25 MG TABLET PO SCH ×2 (10:37→16:33)
[2020-10-11] MEDS: ASPIRIN 81 MG DR TABLET PO SCH (10:37)
[2020-10-11] MEDS: MULTIVITAMINS WITH MINERALS, THERAPEUTIC TABLET PO SCH (10:37)
[2020-10-11] MEDS: BuPROPion HCL 150 MG SR TABLET PO SCH ×2 (10:37→16:33)
[2020-10-11] MEDS: DOXYCYCLINE HYCLATE 100 MG TABLET PO SCH ×2 (10:37→16:33)
[2020-10-11] MEDS: ATORVASTATIN CALCIUM 40 MG TABLET PO SCH (10:38)
[2020-10-11] MEDS: OMEGA-3/DHA/EPA/FISH OIL 1,000 MG CAPSULE PO SCH (10:38)
[2020-10-11] MEDS: FOLIC ACID 1 MG TABLET PO SCH (10:38)
[2020-10-11] MEDS: BACITRACIN 28 GM OINTMENT TP SCH ×2 (10:38→16:34)
[2020-10-11] MEDS: OMEPRAZOLE 20 MG CAPSULE PO SCH (10:38)
[2020-10-11] MEDS: GABAPENTIN 300 MG CAPSULE PO SCH ×3 (10:38→16:33)
[2020-10-11] MEDS: LISINOPRIL 10 MG TABLET PO SCH (10:39)
[2020-10-11 19:26] VITALS: BP 99/61
[2020-10-11] MEDS: MIRTAZAPINE 30 MG TABLET PO SCH (20:00)
[2020-10-11] MEDS: OLANZapine 7.5 MG TABLET PO SCH (20:00)
[2020-10-12] MEDS: LORazepam 2 MG TABLET PO PRN ×2 (03:37→10:33)
[2020-10-12] MEDS: METOPROLOL TARTRATE 25 MG TABLET PO SCH ×2 (08:41→16:11)
[2020-10-12] MEDS: MULTIVITAMINS WITH MINERALS, THERAPEUTIC TABLET PO SCH (08:41)
[2020-10-12] MEDS: GABAPENTIN 300 MG CAPSULE PO SCH ×3 (08:41→16:12)
[2020-10-12] MEDS: OMEPRAZOLE 20 MG CAPSULE PO SCH (08:41)
[2020-10-12] MEDS: LISINOPRIL 10 MG TABLET PO SCH (08:41)
[2020-10-12] MEDS: BuPROPion HCL 150 MG SR TABLET PO SCH ×2 (08:41→16:25)
[2020-10-12] MEDS: ATORVASTATIN CALCIUM 40 MG TABLET PO SCH (08:42)
[2020-10-12] MEDS: DOXYCYCLINE HYCLATE 100 MG TABLET PO SCH ×2 (08:42→16:24)
[2020-10-12] MEDS: ASPIRIN 81 MG DR TABLET PO SCH (08:42)
[2020-10-12] MEDS: FOLIC ACID 1 MG TABLET PO SCH (08:42)
[2020-10-12] MEDS: OMEGA-3/DHA/EPA/FISH OIL 1,000 MG CAPSULE PO SCH (08:42)
[2020-10-12] MEDS: BACITRACIN 28 GM OINTMENT TP SCH ×2 (09:00→16:26)
[2020-10-12 09:16] VITALS: BP_SYST 142; BP_DIAS 24; BP_DIAS 74
[2020-10-12] MEDS ORDERED: BUPR150SR PO (13:26)
[2020-10-12] MEDS ORDERED: MIRT30 PO (13:26)
[2020-10-12] MEDS ORDERED: OLAN7.5T9 PO (13:26)
[2020-10-12] MEDS ORDERED: MULT-1239 PO (14:07)
[2020-10-12] MEDS ORDERED: DOXY-354 PO (14:07)
== END 2020-10-12 17:15 | disposition home or self-care (01) | DRG 750 ==
LOC: EMS 21:35 → B3A 10-04 00:38 → 3EI 10-07 16:32 → 3EC 10-07 17:39
DX: F25.1 Schizoaffective disorder, depressive type (principal); F41.9 Anxiety disorder, unspecified; I10 Essential (primary) hypertension; N17.9 Acute kidney failure, unspecified; R45.851 Suicidal ideations; F10.10 Alcohol abuse, uncomplicated; Z20.822 Contact with and (suspected) exposure to COVID-19; E78.5 Hyperlipidemia, unspecified; B18.2 Chronic viral hepatitis C; Z79.899 Other long term (current) drug therapy; Z99.3 Dependence on wheelchair
CPT/HCPCS: 83036; 84443; 87426; 90732; 99285; G0480

== ENCOUNTER 2020-10-07 16:41 | Emergency (ER) | payer MEDICAID, OTHER ==
[~2020-10-07] VITALS: Ht 182.9 cm; Wt 158.6 kg
[~2020-10-07 16:41] MED LIST changes: +FOLI-130 PO; -FOLI0.4T6 PO; +QUET100T PO; -THIA100T80 PO
[2020-10-07] MEDS ORDERED: DOXYCYCLINE HYCLATE 100 MG TABLET PO ONE (17:00)
[2020-10-07 17:01] VITALS: BP 112/94
[2020-10-07] MEDS ORDERED: BACITRACIN 0.9 GM PACKET OINTMENT TP ONE (17:15)
== END 2020-10-07 17:57 | disposition home or self-care (01) ==
LOC: EMS 16:41
DX: S81.831A Puncture wound without foreign body, right lower leg, initial encounter (principal); F31.9 Bipolar disorder, unspecified; I10 Essential (primary) hypertension; F19.90 Other psychoactive substance use, unspecified, uncomplicated; Z79.899 Other long term (current) drug therapy; Z79.82 Long term (current) use of aspirin; W34.00XA Accidental discharge from unspecified firearms or gun, initial encounter; Y93.89 Activity, other specified; Y92.89 Other specified places as the place of occurrence of the external cause; Y99.8 Other external cause status
CPT/HCPCS: 99283

== ENCOUNTER 2020-12-05 18:12 | Emergency (ER) | payer OTHER ==
[~2020-12-05] VITALS: Ht 185.4 cm; Wt 159.1 kg
[~2020-12-05 18:12] MED LIST changes: -BUPR-93 PO; +BUPR150SR PO; +DOXY-354 PO; +MULT-1239 PO; +OLAN7.5T9 PO; -QUET100T PO
[2020-12-05 20:33] VITALS: BP 135/87
== END 2020-12-05 22:45 | disposition left against medical advice (07) ==
LOC: EMS 18:17
DX: M79.604 Pain in right leg (principal); Z53.21 Procedure and treatment not carried out due to patient leaving prior to being seen by health care provider

== ENCOUNTER 2021-05-21 17:22 | Emergency (ER) | payer MEDICAID, OTHER ==
[~2021-05-21] VITALS: Ht 182.9 cm; Wt 163.6 kg
[~2021-05-21 17:22] MED LIST changes: +OLAN7.5T18 PO; -OLAN7.5T9 PO
[2021-05-21 20:29] VITALS: BP 116/75
== END 2021-05-21 21:30 | disposition home or self-care (01) ==
LOC: EMS 17:25
DX: R21 Rash and other nonspecific skin eruption (principal); F31.9 Bipolar disorder, unspecified; I10 Essential (primary) hypertension; F15.90 Other stimulant use, unspecified, uncomplicated
CPT/HCPCS: 99283; Z7502

== ENCOUNTER 2021-08-12 16:51 | Inpatient (IN) | payer MEDICAID ==
[~2021-08-12] VITALS: Ht 182.9 cm; Wt 140.4 kg
[2021-08-12 23:37] LABS: BASOPHILS % (AUTO) 0.7 % (0.0-2.0); EOSINOPHILS % (AUTO) 3.1 % (1.0-6.0); HEMATOCRIT 40.3 % (41-53); HEMOGLOBIN 13.6 g/dL (13.5-17.5); LYMPHOCYTES # (AUTO) 2.2 K/uL (1.0-4.8); LYMPHOCYTES % (AUTO) 29.4 % (22.0-44.0); MEAN CORPUSCULAR HEMOGLOBIN 27.2 pg (26.0-34.0); MEAN CORPUSCULAR HGB CONC 33.8 G/dL (31.0-37.0); MEAN CORPUSCULAR VOLUME 80 fL (80-100); MONOCYTES # (AUTO) 0.9 K/uL (0.1-1.0); MONOCYTES % (AUTO) 12.6 % (2.0-9.0); NEUTROPHILS % (AUTO) 54.2 % (40.0-70.0); PLATELET COUNT (AUTO) 355 K/uL (150-450); RED BLOOD CELL COUNT(AUTO) 5.02 MIL/uL (4.50-5.90); RED CELL DISTRIBUTION WIDTH 14.8 % (11.5-14.5)
[2021-08-12 23:46] LABS: ANION GAP 9 mmol/L (8-16); CALCIUM, TOTAL 9.3 mg/dL (8.8-10.5); CARBON DIOXIDE 30 mmol/L (22-29); CHLORIDE 98 mmol/L (98-107); CREATININE 0.99 mg/dL (0.60-1.30); GLOMERULAR FILTR. RATE CALC > 60 mL/min (>60); GLUCOSE,RANDOM 93 mg/dL (70-110); POTASSIUM 4.4 mmol/L (3.5-5.1); SODIUM SERUM 137 mmol/L (136-145); UREA NITROGEN, BLOOD 11 mg/dL (7-18)
[2021-08-12 23:52] LABS: ALANINE AMINOTRANSFERASE 30 U/L (12-78); ALBUMIN 3.7 g/dL (3.4-5.0); ALKALINE PHOSPHATASE 66 U/L (46-116); ASPARTATE AMINOTRANSFERASE 23 U/L (15-37); BILIRUBIN,TOTAL 0.6 mg/dL (0.1-1.0); TOTAL PROTEIN, SERUM 8.2 g/dL (6.4-8.2)
[2021-08-13 00:29] LABS: AMPHET/METH SCREEN,URINE POSITIVE (NEGATIVE); BARBITURATE SCREEN, URINE NEGATIVE (NEGATIVE); BENZODIAZEPINES SCREEN,URINE POSITIVE (NEGATIVE); CANNABINOID SCREEN,URINE NEGATIVE (NEGATIVE); COCAINE SCREEN,URINE NEGATIVE (NEGATIVE); METHADONE SCREEN, URINE POSITIVE (NEGATIVE); OPIATE SCREEN,URINE POSITIVE (NEGATIVE)
[2021-08-13 00:36] LABS: PHENCYCLIDINE SCREEN,URINE NEGATIVE (NEGATIVE)
[2021-08-13 01:09] LABS: COVID AG,FIA SOURCE NASOPHARYNGEAL
[2021-08-13] MEDS ORDERED: OLANZapine 5 MG TABLET PO ONE (02:00)
[2021-08-13] MEDS ORDERED: SULFAMETHOX/TRIMETH DS 800-160 MG/TABLET PO ONE (02:30)
[2021-08-13] MEDS ORDERED: CEPHALEXIN MONOHYDRATE 500 MG CAPSULE PO ONE (02:30)
[2021-08-13 03:29] LABS: APPEARANCE,URINE CLEAR (CLEAR); BILIRUBIN,URINE NEGATIVE (NEGATIVE); GLUCOSE, URINE (UA) NEGATIVE (NEGATIVE); KETONES,URINE NEGATIVE (NEGATIVE); LEUKOCYTE ESTERASE ,URINE NEGATIVE (NEGATIVE); NITRATE,URINE NEGATIVE (NEGATIVE); OCCULT BLOOD,URINE NEGATIVE (NEGATIVE); PH,URINE 6.5 (5.0-8.0); PROTEIN,URINE NEGATIVE (NEGATIVE); UROBILINOGEN,URINE 0.2 mg/dL (<=1.0)
[2021-08-13 03:45] VITALS: BP 149/88
[2021-08-13] MEDS ORDERED: -PHARMACY VACCINE NOTE- MISC ONE (06:00)
[2021-08-13] MEDS: SULFAMETHOX/TRIMETH DS 800-160 MG/TABLET PO SCH ×2 (08:48→16:51)
[2021-08-13] MEDS: CEPHALEXIN MONOHYDRATE 500 MG CAPSULE PO SCH ×2 (08:48→16:51)
[2021-08-13 09:00] VITALS: BP 125/68
[2021-08-13] MEDS ORDERED: PETROLATUM,WHITE 28 GM JELLY TP PRN (13:15)
[2021-08-13] MEDS ORDERED: NICOTINE 14 MG/24 HOUR PATCH TD PRN (13:15)
[2021-08-13] MEDS ORDERED: CloNIDine HCL 0.1 MG TABLET PO PRN (13:15)
[2021-08-13] MEDS ORDERED: LOPERAMIDE HCL 2 MG CAPSULE PO PRN (13:15)
[2021-08-13] MEDS ORDERED: MAG HYDROX/AL HYDROX/SIMETH ES 30 ML SUSPENSION UDCUP PO PRN (13:15)
[2021-08-13] MEDS ORDERED: ALBUTEROL SULFATE HFA 90 MCG/PUFF 8 GM INHALER IH PRN (13:15)
[2021-08-13] MEDS ORDERED: ONDANSETRON HCL 4 MG TABLET PO PRN (13:15)
[2021-08-13] MEDS ORDERED: DOCUSATE SODIUM 100 MG CAPSULE PO PRN (13:15)
[2021-08-13] MEDS ORDERED: ACETAMINOPHEN 325 MG TABLET PO PRN (13:15)
[2021-08-13] MEDS ORDERED: GuaiFENesin/D-METHORPHAN [SUGAR-FREE] 200-20MG/10 ML SYRUP UDCUP PO PRN (13:15)
[2021-08-13] MEDS ORDERED: MAGNESIUM HYDROXIDE SUSPENSION 30 ML UDCUP PO PRN (13:15)
[2021-08-13 14:17] VITALS: BP 125/68
[2021-08-13] MEDS: GABAPENTIN 300 MG CAPSULE PO SCH (16:51)
[2021-08-13] MEDS: METOPROLOL TARTRATE 25 MG TABLET PO SCH (16:51)
[2021-08-13] MEDS: BuPROPion HCL 150 MG SR TABLET PO SCH (16:52)
[2021-08-13 17:13] VITALS: BP 120/95
[2021-08-13] MEDS: MIRTAZAPINE 30 MG TABLET PO SCH (20:28)
[2021-08-13] MEDS: OLANZapine 7.5 MG TABLET PO SCH (20:28)
[2021-08-14] MEDS: CEPHALEXIN MONOHYDRATE 500 MG CAPSULE PO SCH ×4 (00:14→23:54)
[2021-08-14 07:21] LABS: ALANINE AMINOTRANSFERASE 24 U/L (12-78); ALKALINE PHOSPHATASE 57 U/L (46-116); ANION GAP 4 mmol/L (8-16); ASPARTATE AMINOTRANSFERASE 18 U/L (15-37); BILIRUBIN,TOTAL 0.5 mg/dL (0.1-1.0); CALCIUM, TOTAL 8.8 mg/dL (8.8-10.5); CARBON DIOXIDE 29 mmol/L (22-29); CHLORIDE 102 mmol/L (98-107); CHOL/HDL RATIO 3.2 (4.2-7.3); CHOLESTEROL 87 mg/dL (131-200); CREATININE 1.03 mg/dL (0.60-1.30); GLOMERULAR FILTR. RATE CALC > 60 mL/min (>60); GLUCOSE,RANDOM 116 mg/dL (70-110); HDL CHOLESTEROL 27 mg/dL (40-60); LDL CHOL (CALC.) 42 mg/dL (0-130); POTASSIUM 4.4 mmol/L (3.5-5.1); SODIUM SERUM 135 mmol/L (136-145); THYROID STIMULATING HORMONE 2.81 uIU/mL (0.36-3.74); TOTAL PROTEIN, SERUM 7.4 g/dL (6.4-8.2); TRIGLYCERIDES 92 mg/dL (15-150); UREA NITROGEN, BLOOD 14 mg/dL (7-18)
[2021-08-14] MEDS: ASPIRIN 81 MG CHEWABLE TABLET PO SCH (09:04)
[2021-08-14] MEDS: GABAPENTIN 300 MG CAPSULE PO SCH ×3 (09:04→16:32)
[2021-08-14] MEDS: BuPROPion HCL 150 MG SR TABLET PO SCH ×2 (09:04→16:33)
[2021-08-14] MEDS: OMEGA-3/DHA/EPA/FISH OIL 1,000 MG CAPSULE PO SCH (09:05)
[2021-08-14] MEDS: SULFAMETHOX/TRIMETH DS 800-160 MG/TABLET PO SCH ×2 (09:05→16:33)
[2021-08-14] MEDS: LISINOPRIL 10 MG TABLET PO SCH (09:05)
[2021-08-14] MEDS: METOPROLOL TARTRATE 25 MG TABLET PO SCH ×2 (09:05→16:33)
[2021-08-14] MEDS: OMEPRAZOLE 20 MG CAPSULE PO SCH (09:05)
[2021-08-14] MEDS: ATORVASTATIN CALCIUM 40 MG TABLET PO SCH (09:05)
[2021-08-14] MEDS: LORazepam 2 MG TABLET PO PRN (13:51)
[2021-08-14 16:33] VITALS: BP 125/71
[2021-08-14] MEDS: MIRTAZAPINE 30 MG TABLET PO SCH (20:58)
[2021-08-14] MEDS: OLANZapine 7.5 MG TABLET PO SCH (20:59)
[2021-08-15] MEDS: OMEPRAZOLE 20 MG CAPSULE PO SCH (08:03)
[2021-08-15] MEDS: METOPROLOL TARTRATE 25 MG TABLET PO SCH ×2 (08:03→16:14)
[2021-08-15] MEDS: ASPIRIN 81 MG CHEWABLE TABLET PO SCH (08:03)
[2021-08-15] MEDS: LISINOPRIL 10 MG TABLET PO SCH (08:03)
[2021-08-15] MEDS: CEPHALEXIN MONOHYDRATE 500 MG CAPSULE PO SCH ×3 (08:03→23:49)
[2021-08-15] MEDS: OMEGA-3/DHA/EPA/FISH OIL 1,000 MG CAPSULE PO SCH (08:03)
[2021-08-15] MEDS: SULFAMETHOX/TRIMETH DS 800-160 MG/TABLET PO SCH ×2 (08:04→16:13)
[2021-08-15] MEDS: BuPROPion HCL 150 MG SR TABLET PO SCH ×2 (08:04→16:13)
[2021-08-15] MEDS: ATORVASTATIN CALCIUM 40 MG TABLET PO SCH (08:04)
[2021-08-15] MEDS: GABAPENTIN 300 MG CAPSULE PO SCH ×3 (08:04→16:13)
[2021-08-15] MEDS: LORazepam 2 MG TABLET PO PRN (09:41)
[2021-08-15 12:41] VITALS: BP 116/61
[2021-08-15 13:22] VITALS: BP 116/61
[2021-08-15 16:26] VITALS: BP 116/73
[2021-08-15] MEDS: MIRTAZAPINE 30 MG TABLET PO SCH (20:11)
[2021-08-15] MEDS: OLANZapine 7.5 MG TABLET PO SCH (20:11)
[2021-08-16 03:14] VITALS: BP 150/79
[2021-08-16] MEDS: ASPIRIN 81 MG CHEWABLE TABLET PO SCH (08:48)
[2021-08-16] MEDS: GABAPENTIN 300 MG CAPSULE PO SCH ×3 (08:48→16:35)
[2021-08-16] MEDS: BuPROPion HCL 150 MG SR TABLET PO SCH ×2 (08:48→16:35)
[2021-08-16] MEDS: OMEPRAZOLE 20 MG CAPSULE PO SCH (08:49)
[2021-08-16] MEDS: CEPHALEXIN MONOHYDRATE 500 MG CAPSULE PO SCH ×2 (08:49→16:35)
[2021-08-16] MEDS: SULFAMETHOX/TRIMETH DS 800-160 MG/TABLET PO SCH ×2 (08:49→16:35)
[2021-08-16] MEDS: OMEGA-3/DHA/EPA/FISH OIL 1,000 MG CAPSULE PO SCH (08:49)
[2021-08-16] MEDS: ATORVASTATIN CALCIUM 40 MG TABLET PO SCH (08:49)
[2021-08-16] MEDS: LISINOPRIL 10 MG TABLET PO SCH (08:49)
[2021-08-16] MEDS: METOPROLOL TARTRATE 25 MG TABLET PO SCH ×2 (08:49→16:35)
[2021-08-16 09:00] VITALS: BP 145/80
[2021-08-16 16:00] VITALS: BP 142/78
[2021-08-16] MEDS: MIRTAZAPINE 30 MG TABLET PO SCH (21:05)
[2021-08-16] MEDS: OLANZapine 7.5 MG TABLET PO SCH (21:08)
[2021-08-17] MEDS: CEPHALEXIN MONOHYDRATE 500 MG CAPSULE PO SCH ×3 (00:07→17:34)
[2021-08-17 08:32] VITALS: BP 143/84
[2021-08-17] MEDS: ASPIRIN 81 MG CHEWABLE TABLET PO SCH (09:14)
[2021-08-17] MEDS: BuPROPion HCL 150 MG SR TABLET PO SCH ×2 (09:15→17:35)
[2021-08-17] MEDS: METOPROLOL TARTRATE 25 MG TABLET PO SCH ×2 (09:15→17:35)
[2021-08-17] MEDS: GABAPENTIN 300 MG CAPSULE PO SCH ×3 (09:16→17:35)
[2021-08-17] MEDS: OMEPRAZOLE 20 MG CAPSULE PO SCH (09:16)
[2021-08-17] MEDS: LISINOPRIL 10 MG TABLET PO SCH (09:16)
[2021-08-17] MEDS: OMEGA-3/DHA/EPA/FISH OIL 1,000 MG CAPSULE PO SCH (09:16)
[2021-08-17] MEDS: SULFAMETHOX/TRIMETH DS 800-160 MG/TABLET PO SCH ×2 (09:16→17:34)
[2021-08-17] MEDS: ATORVASTATIN CALCIUM 40 MG TABLET PO SCH (09:16)
[2021-08-17] MEDS: LORazepam 2 MG TABLET PO PRN ×2 (11:24→22:45)
[2021-08-17 16:26] VITALS: BP 114/67
[2021-08-17] MEDS: MIRTAZAPINE 30 MG TABLET PO SCH (21:30)
[2021-08-17] MEDS: OLANZapine 7.5 MG TABLET PO SCH (21:30)
[2021-08-18] MEDS: CEPHALEXIN MONOHYDRATE 500 MG CAPSULE PO SCH (00:20)
[2021-08-18 02:39] VITALS: BP 116/86
[2021-08-18 05:27] VITALS: BP 133/74
[2021-08-18] MEDS: IBUPROFEN 400 MG TABLET PO PRN (05:27)
[2021-08-18] MEDS: LORazepam 2 MG TABLET PO PRN ×3 (05:27→21:14)
[2021-08-18 08:34] VITALS: BP 154/52
[2021-08-18] MEDS: OMEPRAZOLE 20 MG CAPSULE PO SCH (08:39)
[2021-08-18] MEDS: BuPROPion HCL 150 MG SR TABLET PO SCH ×2 (08:39→16:45)
[2021-08-18] MEDS: ASPIRIN 81 MG CHEWABLE TABLET PO SCH (08:39)
[2021-08-18] MEDS: GABAPENTIN 300 MG CAPSULE PO SCH ×3 (08:39→16:45)
[2021-08-18] MEDS: LISINOPRIL 10 MG TABLET PO SCH (08:39)
[2021-08-18] MEDS: METOPROLOL TARTRATE 25 MG TABLET PO SCH ×2 (08:39→16:45)
[2021-08-18] MEDS: OMEGA-3/DHA/EPA/FISH OIL 1,000 MG CAPSULE PO SCH (08:40)
[2021-08-18] MEDS: ATORVASTATIN CALCIUM 40 MG TABLET PO SCH (08:40)
[2021-08-18 16:16] VITALS: BP 129/82
[2021-08-18] MEDS: HALOPERIDOL 5 MG TABLET PO PRN (17:00)
[2021-08-18] MEDS: OLANZapine 7.5 MG TABLET PO SCH (21:14)
[2021-08-18] MEDS: MIRTAZAPINE 30 MG TABLET PO SCH (21:14)
[2021-08-19 00:49] VITALS: BP 117/68
[2021-08-19] MEDS: ZOLPIDEM TARTRATE 10 MG TABLET PO PRN (00:50)
[2021-08-19] MEDS: HALOPERIDOL 5 MG TABLET PO PRN (00:50)
[2021-08-19] MEDS: LORazepam 2 MG TABLET PO PRN ×2 (02:11→11:34)
[2021-08-19 09:24] LABS: ALBUMIN 3.8 g/dL (3.4-5.0); BILIRUBIN,TOTAL 0.5 mg/dL (0.1-1.0); CALCIUM, TOTAL 9.4 mg/dL (8.8-10.5); CREATININE 1.62 mg/dL (0.60-1.30); POTASSIUM 4.9 mmol/L (3.5-5.1)
[2021-08-19] MEDS: ATORVASTATIN CALCIUM 40 MG TABLET PO SCH (09:25)
[2021-08-19] MEDS: LISINOPRIL 10 MG TABLET PO SCH (09:25)
[2021-08-19] MEDS: METOPROLOL TARTRATE 25 MG TABLET PO SCH ×2 (09:25→16:10)
[2021-08-19] MEDS: OMEGA-3/DHA/EPA/FISH OIL 1,000 MG CAPSULE PO SCH (09:25)
[2021-08-19] MEDS: OMEPRAZOLE 20 MG CAPSULE PO SCH (09:25)
[2021-08-19] MEDS: GABAPENTIN 300 MG CAPSULE PO SCH ×3 (09:25→16:10)
[2021-08-19] MEDS: BuPROPion HCL 150 MG SR TABLET PO SCH ×2 (09:25→16:10)
[2021-08-19] MEDS: ASPIRIN 81 MG CHEWABLE TABLET PO SCH (09:26)
[2021-08-19 11:21] VITALS: BP 138/94
[2021-08-19] MEDS: IBUPROFEN 400 MG TABLET PO PRN (14:09)
[2021-08-19 16:24] VITALS: BP 122/77
[2021-08-19] MEDS: OLANZapine 7.5 MG TABLET PO SCH (20:30)
[2021-08-19] MEDS: MIRTAZAPINE 30 MG TABLET PO SCH (20:30)
[2021-08-20] MEDS: OMEGA-3/DHA/EPA/FISH OIL 1,000 MG CAPSULE PO SCH (08:35)
[2021-08-20] MEDS: ASPIRIN 81 MG CHEWABLE TABLET PO SCH (08:35)
[2021-08-20] MEDS: LISINOPRIL 10 MG TABLET PO SCH (08:36)
[2021-08-20] MEDS: OMEPRAZOLE 20 MG CAPSULE PO SCH (08:36)
[2021-08-20] MEDS: GABAPENTIN 300 MG CAPSULE PO SCH ×3 (08:36→17:09)
[2021-08-20] MEDS: METOPROLOL TARTRATE 25 MG TABLET PO SCH ×2 (08:36→17:10)
[2021-08-20] MEDS: BuPROPion HCL 150 MG SR TABLET PO SCH ×2 (08:36→17:10)
[2021-08-20] MEDS: ATORVASTATIN CALCIUM 40 MG TABLET PO SCH (08:36)
[2021-08-20] MEDS: LORazepam 2 MG TABLET PO PRN (09:22)
[2021-08-20 13:52] LABS: COVID AG,FIA SOURCE NASOPHARYNGEAL
[2021-08-20 16:14] VITALS: BP 106/49
[2021-08-20] MEDS: OLANZapine 7.5 MG TABLET PO SCH (20:22)
[2021-08-20] MEDS: MIRTAZAPINE 30 MG TABLET PO SCH (20:23)
[2021-08-21 09:24] VITALS: BP 127/62
[2021-08-21 09:34] VITALS: BP 110/62
[2021-08-21] MEDS: BuPROPion HCL 150 MG SR TABLET PO SCH ×2 (09:47→15:57)
[2021-08-21] MEDS: OMEGA-3/DHA/EPA/FISH OIL 1,000 MG CAPSULE PO SCH (09:47)
[2021-08-21] MEDS: METOPROLOL TARTRATE 25 MG TABLET PO SCH ×2 (09:47→15:58)
[2021-08-21] MEDS: GABAPENTIN 300 MG CAPSULE PO SCH ×3 (09:47→15:57)
[2021-08-21] MEDS: ATORVASTATIN CALCIUM 40 MG TABLET PO SCH (09:47)
[2021-08-21] MEDS: ASPIRIN 81 MG CHEWABLE TABLET PO SCH (09:47)
[2021-08-21] MEDS: OMEPRAZOLE 20 MG CAPSULE PO SCH (09:48)
[2021-08-21] MEDS: LISINOPRIL 10 MG TABLET PO SCH (09:48)
[2021-08-21] MEDS: LORazepam 2 MG TABLET PO PRN ×2 (11:53→17:37)
[2021-08-21 16:39] VITALS: BP 109/62
[2021-08-21] MEDS: MIRTAZAPINE 30 MG TABLET PO SCH (20:19)
[2021-08-21] MEDS: OLANZapine 10 MG TABLET PO SCH (20:19)
[2021-08-22 04:12] VITALS: BP 108/74
[2021-08-22] MEDS: IBUPROFEN 400 MG TABLET PO PRN (04:12)
[2021-08-22 08:30] VITALS: BP 140/81
[2021-08-22] MEDS: ASPIRIN 81 MG CHEWABLE TABLET PO SCH (08:39)
[2021-08-22] MEDS: BuPROPion HCL 150 MG SR TABLET PO SCH ×2 (08:39→16:58)
[2021-08-22] MEDS: LISINOPRIL 10 MG TABLET PO SCH (08:39)
[2021-08-22] MEDS: METOPROLOL TARTRATE 25 MG TABLET PO SCH ×2 (08:39→16:58)
[2021-08-22] MEDS: OMEPRAZOLE 20 MG CAPSULE PO SCH (08:39)
[2021-08-22] MEDS: ATORVASTATIN CALCIUM 40 MG TABLET PO SCH (08:39)
[2021-08-22] MEDS: GABAPENTIN 300 MG CAPSULE PO SCH ×3 (08:39→16:57)
[2021-08-22] MEDS: OMEGA-3/DHA/EPA/FISH OIL 1,000 MG CAPSULE PO SCH (08:39)
[2021-08-22] MEDS: LORazepam 2 MG TABLET PO PRN ×2 (09:43→16:57)
[2021-08-22 16:41] VITALS: BP 129/74
[2021-08-22] MEDS: OLANZapine 10 MG TABLET PO SCH (21:21)
[2021-08-22] MEDS: MIRTAZAPINE 30 MG TABLET PO SCH (21:21)
[2021-08-23 00:35] VITALS: BP 145/79
[2021-08-23] MEDS: LORazepam 2 MG TABLET PO PRN ×3 (00:55→22:45)
[2021-08-23] MEDS: ATORVASTATIN CALCIUM 40 MG TABLET PO SCH (09:25)
[2021-08-23] MEDS: OMEGA-3/DHA/EPA/FISH OIL 1,000 MG CAPSULE PO SCH (09:25)
[2021-08-23] MEDS: BuPROPion HCL 150 MG SR TABLET PO SCH ×2 (09:25→16:54)
[2021-08-23] MEDS: ASPIRIN 81 MG CHEWABLE TABLET PO SCH (09:26)
[2021-08-23] MEDS: GABAPENTIN 300 MG CAPSULE PO SCH ×3 (09:26→16:53)
[2021-08-23] MEDS: OMEPRAZOLE 20 MG CAPSULE PO SCH (09:26)
[2021-08-23] MEDS: LISINOPRIL 10 MG TABLET PO SCH (09:26)
[2021-08-23] MEDS: METOPROLOL TARTRATE 25 MG TABLET PO SCH ×2 (09:26→16:54)
[2021-08-23 10:02] VITALS: BP 141/88
[2021-08-23 16:00] VITALS: BP 120/67
[2021-08-23] MEDS: HALOPERIDOL 5 MG TABLET PO PRN (16:54)
[2021-08-23] MEDS: OLANZapine 10 MG TABLET PO SCH (20:31)
[2021-08-23] MEDS: ZOLPIDEM TARTRATE 10 MG TABLET PO PRN (20:31)
[2021-08-23] MEDS: MIRTAZAPINE 30 MG TABLET PO SCH (20:31)
[2021-08-24] MEDS: IBUPROFEN 400 MG TABLET PO PRN (02:31)
[2021-08-24 02:45] VITALS: BP 125/65
[2021-08-24] MEDS: GABAPENTIN 300 MG CAPSULE PO SCH ×3 (09:07→16:56)
[2021-08-24] MEDS: ATORVASTATIN CALCIUM 40 MG TABLET PO SCH (09:07)
[2021-08-24] MEDS: OMEPRAZOLE 20 MG CAPSULE PO SCH (09:08)
[2021-08-24] MEDS: OMEGA-3/DHA/EPA/FISH OIL 1,000 MG CAPSULE PO SCH (09:08)
[2021-08-24] MEDS: LISINOPRIL 10 MG TABLET PO SCH (09:08)
[2021-08-24] MEDS: ASPIRIN 81 MG CHEWABLE TABLET PO SCH (09:08)
[2021-08-24] MEDS: METOPROLOL TARTRATE 25 MG TABLET PO SCH ×2 (09:08→16:56)
[2021-08-24 10:28] VITALS: BP 129/81
[2021-08-24] MEDS: BuPROPion HCL 150 MG SR TABLET PO SCH ×2 (10:52→17:23)
[2021-08-24] MEDS: LORazepam 2 MG TABLET PO PRN (15:51)
[2021-08-24 16:00] VITALS: BP 143/80
[2021-08-24] MEDS: MIRTAZAPINE 30 MG TABLET PO SCH (20:13)
[2021-08-24] MEDS: OLANZapine 10 MG TABLET PO SCH (20:13)
[2021-08-25] MEDS: OMEPRAZOLE 20 MG CAPSULE PO SCH (09:29)
[2021-08-25] MEDS: BuPROPion HCL 150 MG SR TABLET PO SCH ×2 (09:29→17:06)
[2021-08-25] MEDS: OMEGA-3/DHA/EPA/FISH OIL 1,000 MG CAPSULE PO SCH (09:29)
[2021-08-25] MEDS: ASPIRIN 81 MG CHEWABLE TABLET PO SCH (09:30)
[2021-08-25] MEDS: LISINOPRIL 10 MG TABLET PO SCH (09:30)
[2021-08-25] MEDS: ATORVASTATIN CALCIUM 40 MG TABLET PO SCH (09:30)
[2021-08-25] MEDS: METOPROLOL TARTRATE 25 MG TABLET PO SCH ×2 (09:30→17:06)
[2021-08-25] MEDS: GABAPENTIN 300 MG CAPSULE PO SCH ×3 (09:30→17:06)
[2021-08-25 11:29] VITALS: BP 115/67
[2021-08-25] MEDS: LORazepam 2 MG TABLET PO PRN ×2 (13:47→19:55)
[2021-08-25 17:06] VITALS: BP 137/83
[2021-08-25] MEDS: HALOPERIDOL 5 MG TABLET PO PRN (17:06)
[2021-08-25] MEDS: MIRTAZAPINE 30 MG TABLET PO SCH (20:46)
[2021-08-25] MEDS: OLANZapine 10 MG TABLET PO SCH (20:46)
[2021-08-26 08:35] VITALS: BP 113/62
[2021-08-26] MEDS: LORazepam 2 MG TABLET PO PRN (09:16)
[2021-08-26] MEDS: OMEGA-3/DHA/EPA/FISH OIL 1,000 MG CAPSULE PO SCH (09:17)
[2021-08-26] MEDS: METOPROLOL TARTRATE 25 MG TABLET PO SCH ×2 (09:17→16:42)
[2021-08-26] MEDS: ASPIRIN 81 MG CHEWABLE TABLET PO SCH (09:17)
[2021-08-26] MEDS: BuPROPion HCL 150 MG SR TABLET PO SCH ×2 (09:17→16:42)
[2021-08-26] MEDS: GABAPENTIN 300 MG CAPSULE PO SCH ×3 (09:17→16:42)
[2021-08-26] MEDS: ATORVASTATIN CALCIUM 40 MG TABLET PO SCH (09:17)
[2021-08-26] MEDS: LISINOPRIL 10 MG TABLET PO SCH (09:18)
[2021-08-26] MEDS: OMEPRAZOLE 20 MG CAPSULE PO SCH (09:18)
[2021-08-26] MEDS: HALOPERIDOL 5 MG TABLET PO PRN (16:42)
[2021-08-26 16:50] VITALS: BP 122/74
[2021-08-26] MEDS: ZOLPIDEM TARTRATE 10 MG TABLET PO PRN (21:03)
[2021-08-26] MEDS: MIRTAZAPINE 30 MG TABLET PO SCH (21:03)
[2021-08-26] MEDS: OLANZapine 10 MG TABLET PO SCH (21:04)
[2021-08-27 08:04] VITALS: BP 140/87
[2021-08-27] MEDS: OMEGA-3/DHA/EPA/FISH OIL 1,000 MG CAPSULE PO SCH (08:36)
[2021-08-27] MEDS: ATORVASTATIN CALCIUM 40 MG TABLET PO SCH (08:36)
[2021-08-27] MEDS: METOPROLOL TARTRATE 25 MG TABLET PO SCH ×2 (08:36→16:29)
[2021-08-27] MEDS: BuPROPion HCL 150 MG SR TABLET PO SCH ×2 (08:37→16:29)
[2021-08-27] MEDS: OMEPRAZOLE 20 MG CAPSULE PO SCH (08:37)
[2021-08-27] MEDS: GABAPENTIN 300 MG CAPSULE PO SCH ×3 (08:37→16:29)
[2021-08-27] MEDS: LISINOPRIL 10 MG TABLET PO SCH (08:37)
[2021-08-27] MEDS: ASPIRIN 81 MG CHEWABLE TABLET PO SCH (08:37)
[2021-08-27] MEDS: LORazepam 2 MG TABLET PO PRN (10:22)
[2021-08-27 16:26] VITALS: BP 112/76
[2021-08-27 17:40] LABS: COVID AG,FIA SOURCE NASOPHARYNGEAL
[2021-08-27] MEDS: OLANZapine 10 MG TABLET PO SCH (20:35)
[2021-08-27] MEDS: MIRTAZAPINE 30 MG TABLET PO SCH (20:36)
[2021-08-28] MEDS: OMEGA-3/DHA/EPA/FISH OIL 1,000 MG CAPSULE PO SCH (08:53)
[2021-08-28] MEDS: GABAPENTIN 300 MG CAPSULE PO SCH ×3 (08:53→16:14)
[2021-08-28] MEDS: ATORVASTATIN CALCIUM 40 MG TABLET PO SCH (08:53)
[2021-08-28] MEDS: METOPROLOL TARTRATE 25 MG TABLET PO SCH ×2 (08:53→16:14)
[2021-08-28] MEDS: BuPROPion HCL 150 MG SR TABLET PO SCH ×2 (08:53→16:14)
[2021-08-28] MEDS: LISINOPRIL 10 MG TABLET PO SCH (08:54)
[2021-08-28] MEDS: OMEPRAZOLE 20 MG CAPSULE PO SCH (08:54)
[2021-08-28] MEDS: ASPIRIN 81 MG CHEWABLE TABLET PO SCH (08:55)
[2021-08-28] MEDS: LORazepam 2 MG TABLET PO PRN (09:14)
[2021-08-28 10:03] VITALS: BP 127/73
[2021-08-28 17:01] VITALS: BP 109/66
[2021-08-28] MEDS: OLANZapine 10 MG TABLET PO SCH (20:26)
[2021-08-28] MEDS: MIRTAZAPINE 30 MG TABLET PO SCH (20:27)
[2021-08-29] MEDS: BuPROPion HCL 150 MG SR TABLET PO SCH ×2 (08:57→16:17)
[2021-08-29] MEDS: ATORVASTATIN CALCIUM 40 MG TABLET PO SCH (08:57)
[2021-08-29] MEDS: OMEPRAZOLE 20 MG CAPSULE PO SCH (08:57)
[2021-08-29] MEDS: ASPIRIN 81 MG CHEWABLE TABLET PO SCH (08:57)
[2021-08-29] MEDS: OMEGA-3/DHA/EPA/FISH OIL 1,000 MG CAPSULE PO SCH (08:57)
[2021-08-29] MEDS: LISINOPRIL 10 MG TABLET PO SCH (08:58)
[2021-08-29] MEDS: METOPROLOL TARTRATE 25 MG TABLET PO SCH ×2 (08:58→16:52)
[2021-08-29] MEDS: GABAPENTIN 300 MG CAPSULE PO SCH ×3 (08:58→16:17)
[2021-08-29 10:00] VITALS: BP 110/64
[2021-08-29] MEDS: LORazepam 2 MG TABLET PO PRN (11:13)
[2021-08-29 16:00] VITALS: BP 103/71
[2021-08-29] MEDS: OLANZapine 10 MG TABLET PO SCH (20:16)
[2021-08-29] MEDS: MIRTAZAPINE 30 MG TABLET PO SCH (20:17)
[2021-08-30 05:26] VITALS: BP 134/79
[2021-08-30] MEDS: LORazepam 2 MG TABLET PO PRN ×2 (05:32→13:16)
[2021-08-30 09:45] VITALS: BP 119/70
[2021-08-30] MEDS: LISINOPRIL 10 MG TABLET PO SCH (09:46)
[2021-08-30] MEDS: BuPROPion HCL 150 MG SR TABLET PO SCH ×2 (09:46→16:34)
[2021-08-30] MEDS: OMEGA-3/DHA/EPA/FISH OIL 1,000 MG CAPSULE PO SCH (09:46)
[2021-08-30] MEDS: OMEPRAZOLE 20 MG CAPSULE PO SCH (09:46)
[2021-08-30] MEDS: GABAPENTIN 300 MG CAPSULE PO SCH ×3 (09:46→16:34)
[2021-08-30] MEDS: ASPIRIN 81 MG CHEWABLE TABLET PO SCH (09:46)
[2021-08-30] MEDS: ATORVASTATIN CALCIUM 40 MG TABLET PO SCH (09:47)
[2021-08-30] MEDS: METOPROLOL TARTRATE 25 MG TABLET PO SCH ×2 (09:47→17:00)
[2021-08-30] MEDS: OLANZapine 10 MG TABLET PO SCH (20:09)
[2021-08-30] MEDS: MIRTAZAPINE 30 MG TABLET PO SCH (20:09)
[2021-08-31 08:44] VITALS: BP 130/80
[2021-08-31] MEDS: METOPROLOL TARTRATE 25 MG TABLET PO SCH ×2 (09:06→17:11)
[2021-08-31] MEDS: ASPIRIN 81 MG CHEWABLE TABLET PO SCH (09:06)
[2021-08-31] MEDS: ATORVASTATIN CALCIUM 40 MG TABLET PO SCH (09:06)
[2021-08-31] MEDS: GABAPENTIN 300 MG CAPSULE PO SCH ×3 (09:06→17:10)
[2021-08-31] MEDS: OMEGA-3/DHA/EPA/FISH OIL 1,000 MG CAPSULE PO SCH (09:06)
[2021-08-31] MEDS: LISINOPRIL 10 MG TABLET PO SCH (09:06)
[2021-08-31] MEDS: BuPROPion HCL 150 MG SR TABLET PO SCH ×2 (09:06→17:23)
[2021-08-31] MEDS: OMEPRAZOLE 20 MG CAPSULE PO SCH (09:06)
[2021-08-31] MEDS: LORazepam 2 MG TABLET PO PRN ×2 (09:07→17:09)
[2021-08-31 16:20] VITALS: BP 119/67
[2021-08-31] MEDS: HALOPERIDOL 5 MG TABLET PO PRN (16:30)
[2021-08-31] MEDS: MIRTAZAPINE 30 MG TABLET PO SCH (21:05)
[2021-08-31] MEDS: OLANZapine 10 MG TABLET PO SCH (21:05)
[2021-08-31] MEDS: ZOLPIDEM TARTRATE 10 MG TABLET PO PRN (21:06)
[2021-09-01 08:00] VITALS: BP 110/63
[2021-09-01] MEDS: OMEGA-3/DHA/EPA/FISH OIL 1,000 MG CAPSULE PO SCH (08:53)
[2021-09-01] MEDS: GABAPENTIN 300 MG CAPSULE PO SCH ×3 (08:54→17:21)
[2021-09-01] MEDS: METOPROLOL TARTRATE 25 MG TABLET PO SCH ×2 (08:54→17:21)
[2021-09-01] MEDS: OMEPRAZOLE 20 MG CAPSULE PO SCH (08:54)
[2021-09-01] MEDS: ASPIRIN 81 MG CHEWABLE TABLET PO SCH (08:54)
[2021-09-01] MEDS: ATORVASTATIN CALCIUM 40 MG TABLET PO SCH (08:54)
[2021-09-01] MEDS: LISINOPRIL 10 MG TABLET PO SCH (08:54)
[2021-09-01] MEDS: BuPROPion HCL 150 MG SR TABLET PO SCH ×2 (08:54→17:20)
[2021-09-01] MEDS: LORazepam 2 MG TABLET PO PRN ×2 (09:25→18:10)
[2021-09-01] MEDS: HALOPERIDOL 5 MG TABLET PO PRN (17:21)
[2021-09-01 18:05] VITALS: BP 138/96
[2021-09-01] MEDS: OLANZapine 10 MG TABLET PO SCH (21:17)
[2021-09-01] MEDS: ZOLPIDEM TARTRATE 10 MG TABLET PO PRN (21:18)
[2021-09-01] MEDS: MIRTAZAPINE 30 MG TABLET PO SCH (21:18)
[2021-09-01 23:47] LABS: COVID AG,FIA SOURCE NASAL SWAB
[2021-09-02] MEDS: ASPIRIN 81 MG CHEWABLE TABLET PO SCH (08:30)
[2021-09-02] MEDS: OMEGA-3/DHA/EPA/FISH OIL 1,000 MG CAPSULE PO SCH (08:30)
[2021-09-02] MEDS: ATORVASTATIN CALCIUM 40 MG TABLET PO SCH (08:31)
[2021-09-02] MEDS: LISINOPRIL 10 MG TABLET PO SCH (08:31)
[2021-09-02] MEDS: METOPROLOL TARTRATE 25 MG TABLET PO SCH ×2 (08:31→17:08)
[2021-09-02] MEDS: OMEPRAZOLE 20 MG CAPSULE PO SCH (08:31)
[2021-09-02] MEDS: GABAPENTIN 300 MG CAPSULE PO SCH ×3 (08:31→17:08)
[2021-09-02] MEDS: BuPROPion HCL 150 MG SR TABLET PO SCH ×2 (08:32→17:08)
[2021-09-02 10:08] VITALS: BP 114/75
[2021-09-02] MEDS: LORazepam 2 MG TABLET PO PRN (11:59)
[2021-09-02] MEDS ORDERED: MIRT30 PO (12:40)
[2021-09-02] MEDS ORDERED: OLAN7.5T18 PO (12:40)
[2021-09-02] MEDS ORDERED: BUPR150SR PO (12:40)
[2021-09-02 16:00] VITALS: BP 124/80
[2021-09-02 18:47] LABS: AMPHET/METH SCREEN,URINE NEGATIVE (NEGATIVE); BARBITURATE SCREEN, URINE NEGATIVE (NEGATIVE); BENZODIAZEPINES SCREEN,URINE NEGATIVE (NEGATIVE); CANNABINOID SCREEN,URINE NEGATIVE (NEGATIVE); COCAINE SCREEN,URINE NEGATIVE (NEGATIVE); METHADONE SCREEN, URINE NEGATIVE (NEGATIVE); OPIATE SCREEN,URINE NEGATIVE (NEGATIVE)
[2021-09-02 18:48] LABS: APPEARANCE,URINE CLEAR (CLEAR); BILIRUBIN,URINE NEGATIVE (NEGATIVE); GLUCOSE, URINE (UA) NEGATIVE (NEGATIVE); KETONES,URINE NEGATIVE (NEGATIVE); LEUKOCYTE ESTERASE ,URINE NEGATIVE (NEGATIVE); NITRATE,URINE NEGATIVE (NEGATIVE); OCCULT BLOOD,URINE NEGATIVE (NEGATIVE); PH,URINE 6.5 (5.0-8.0); PROTEIN,URINE NEGATIVE (NEGATIVE); UROBILINOGEN,URINE 0.2 mg/dL (<=1.0)
[2021-09-02 19:27] LABS: PHENCYCLIDINE SCREEN,URINE NEGATIVE (NEGATIVE)
[2021-09-02] MEDS: MIRTAZAPINE 30 MG TABLET PO SCH (20:37)
[2021-09-02] MEDS: OLANZapine 10 MG TABLET PO SCH (20:37)
[2021-09-03] MEDS ORDERED: ASPI-1450 PO (07:32)
[2021-09-03] MEDS ORDERED: ATOR40TA28 PO (07:33)
[2021-09-03] MEDS ORDERED: GABA-1181 PO (07:39)
[2021-09-03] MEDS: OMEPRAZOLE 20 MG CAPSULE PO SCH (07:49)
[2021-09-03] MEDS: LISINOPRIL 10 MG TABLET PO SCH (07:49)
[2021-09-03] MEDS: ASPIRIN 81 MG CHEWABLE TABLET PO SCH (07:49)
[2021-09-03] MEDS: GABAPENTIN 300 MG CAPSULE PO SCH (07:50)
[2021-09-03] MEDS: BuPROPion HCL 150 MG SR TABLET PO SCH (07:50)
[2021-09-03] MEDS: ATORVASTATIN CALCIUM 40 MG TABLET PO SCH (07:50)
[2021-09-03] MEDS: METOPROLOL TARTRATE 25 MG TABLET PO SCH (07:50)
[2021-09-03] MEDS: OMEGA-3/DHA/EPA/FISH OIL 1,000 MG CAPSULE PO SCH (07:56)
== END 2021-09-03 07:50 | disposition home or self-care (01) | DRG 750 ==
LOC: EMS 16:53 → 3EI 08-13 03:04
PROVIDERS: ADMIT Psychiatry & Neurology Psychiatry; ATTEND Psychiatry & Neurology Psychiatry
DX: F25.0 Schizoaffective disorder, bipolar type (principal); F33.2 Major depressive disorder, recurrent severe without psychotic features; R45.851 Suicidal ideations; E66.9 Obesity, unspecified; E78.5 Hyperlipidemia, unspecified; Y90.1 Blood alcohol level of 20-39 mg/100 ml; K21.9 Gastro-esophageal reflux disease without esophagitis; I10 Essential (primary) hypertension; J44.9 Chronic obstructive pulmonary disease, unspecified; F10.10 Alcohol abuse, uncomplicated; F15.20 Other stimulant dependence, uncomplicated; Z20.822 Contact with and (suspected) exposure to COVID-19; Z59.00 Homelessness unspecified; Z91.51 Personal history of suicidal behavior; Z91.52 Personal history of nonsuicidal self-harm; Z68.42 Body mass index [BMI] 45.0-49.9, adult; Z79.899 Other long term (current) drug therapy
CPT/HCPCS: 80053; 80061; 80307; 81003; 82140; 83036; 84443; 85025; 87081; 99285; G0480

== ENCOUNTER 2022-07-22 14:33 | Inpatient (IN) | payer MEDICAID ==
[~2022-07-22] VITALS: Ht 182.9 cm; Wt 169.9 kg
[~2022-07-22 14:33] MED LIST changes: -ASPI-1444 PO; +ASPI-1450 PO; +ATOR40TA28 PO; -ATOR40TA71 PO; +BUPR-72 PO; -BUPR150SR PO; -DOXY-354 PO; -FOLI-130 PO; +MIRT-149 PO; -MIRT30 PO; -MULT-1239 PO
[2022-07-22 16:08] LABS: ANION GAP 8 mmol/L (8-16); CALCIUM, TOTAL 9.9 mg/dL (8.8-10.5); CARBON DIOXIDE 30 mmol/L (22-29); CHLORIDE 100 mmol/L (98-107); GLUCOSE,RANDOM 107 mg/dL (70-110); POTASSIUM 4.3 mmol/L (3.5-5.1); SODIUM SERUM 138 mmol/L (136-145); UREA NITROGEN, BLOOD 22 mg/dL (7-18)
[2022-07-22 16:14] LABS: ALANINE AMINOTRANSFERASE 29 U/L (12-78); ALKALINE PHOSPHATASE 79 U/L (46-116); ASPARTATE AMINOTRANSFERASE 30 U/L (15-37); BASOPHILS % (AUTO) 0.5 % (0.0-2.0); BILIRUBIN,TOTAL 0.6 mg/dL (0.1-1.0); EOSINOPHILS % (AUTO) 2.8 % (1.0-6.0); GLOMERULAR FILTR. RATE CALC > 60 mL/min (>60); HEMATOCRIT 37.9 % (41-53); HEMOGLOBIN 12.7 g/dL (13.5-17.5); LYMPHOCYTES # (AUTO) 2.5 K/uL (1.0-4.8); LYMPHOCYTES % (AUTO) 38.3 % (22.0-44.0); MEAN CORPUSCULAR HEMOGLOBIN 27.4 pg (26.0-34.0); MEAN CORPUSCULAR HGB CONC 33.5 G/dL (31.0-37.0); MEAN CORPUSCULAR VOLUME 82 fL (80-100); MONOCYTES # (AUTO) 1.2 K/uL (0.1-1.0); MONOCYTES % (AUTO) 18.8 % (2.0-9.0); NEUTROPHILS # (AUTO) 2.5 K/uL (1.8-7.7); NEUTROPHILS % (AUTO) 39.6 % (40.0-70.0); PLATELET COUNT (AUTO) 310 K/uL (150-450); RED BLOOD CELL COUNT(AUTO) 4.65 MIL/uL (4.50-5.90); RED CELL DISTRIBUTION WIDTH 14.3 % (11.5-14.5); TOTAL PROTEIN, SERUM 8.8 g/dL (6.4-8.2)
[2022-07-22] MEDS ORDERED: OLAN10TA74 PO (19:20)
[2022-07-22] MEDS ORDERED: ACETAMINOPHEN 500 MG TABLET PO ONE (19:30)
[2022-07-22 19:45] LABS: COVID AG,FIA SOURCE NASAL SWAB
[2022-07-22] MEDS ORDERED: LORazepam 2 MG TABLET PO ONE (21:00)
[2022-07-22] MEDS ORDERED: DiphenhydrAMINE HCL 25 MG CAPSULE PO ONE (21:00)
[2022-07-22] MEDS ORDERED: HALOPERIDOL 5 MG TABLET PO ONE (21:30)
[2022-07-23 02:09] VITALS: BP 100/64
[2022-07-23] MEDS ORDERED: INFLUENZA VIRUS VACCINE QVS 2022-23 (6MO+)/PF 60 MCG/0.5 ML SYRINGE IM. ONE (02:45)
[2022-07-23] MEDS ORDERED: CloNIDine HCL 0.1 MG TABLET PO PRN (06:45)
[2022-07-23] MEDS ORDERED: MAGNESIUM HYDROXIDE SUSPENSION 30 ML UDCUP PO PRN (06:45)
[2022-07-23] MEDS ORDERED: ONDANSETRON HCL 4 MG TABLET PO PRN (06:45)
[2022-07-23] MEDS ORDERED: ACETAMINOPHEN 325 MG TABLET PO PRN (06:45)
[2022-07-23] MEDS ORDERED: PETROLATUM,WHITE 28 GM JELLY TP PRN (06:45)
[2022-07-23] MEDS ORDERED: DOCUSATE SODIUM 100 MG CAPSULE PO PRN (06:45)
[2022-07-23] MEDS ORDERED: LOPERAMIDE HCL 2 MG CAPSULE PO PRN (06:45)
[2022-07-23] MEDS ORDERED: MAG HYDROX/AL HYDROX/SIMETH ES 30 ML SUSPENSION UDCUP PO PRN (06:45)
[2022-07-23] MEDS ORDERED: BENZOCAINE/MENTHOL LOZENGE PO PRN (06:45)
[2022-07-23] MEDS ORDERED: BACITRACIN 28 GM OINTMENT TP PRN (06:45)
[2022-07-23] MEDS ORDERED: ALBUTEROL SULFATE HFA 90 MCG/PUFF 8 GM INHALER IH PRN (06:45)
[2022-07-23] MEDS: ASPIRIN 81 MG CHEWABLE TABLET PO SCH (08:29)
[2022-07-23] MEDS: METOPROLOL TARTRATE 25 MG TABLET PO SCH ×2 (08:29→16:00)
[2022-07-23] MEDS: LISINOPRIL 10 MG TABLET PO SCH (08:29)
[2022-07-23] MEDS: OMEPRAZOLE 20 MG CAPSULE PO SCH (08:29)
[2022-07-23] MEDS: ATORVASTATIN CALCIUM 40 MG TABLET PO SCH (08:29)
[2022-07-23 10:43] LABS: APPEARANCE,URINE CLEAR (CLEAR); BILIRUBIN,URINE NEGATIVE (NEGATIVE); GLUCOSE, URINE (UA) NEGATIVE (NEGATIVE); KETONES,URINE NEGATIVE (NEGATIVE); LEUKOCYTE ESTERASE ,URINE NEGATIVE (NEGATIVE); NITRATE,URINE NEGATIVE (NEGATIVE); OCCULT BLOOD,URINE NEGATIVE (NEGATIVE); PROTEIN,URINE NEGATIVE (NEGATIVE); SPECIFIC GRAVITIY, URINE 1.015 (1.003-1.030); UROBILINOGEN,URINE <=1.0 mg/dL (<=1.0)
[2022-07-23 10:49] LABS: AMPHET/METH SCREEN,URINE POSITIVE (NEGATIVE); BARBITURATE SCREEN, URINE NEGATIVE (NEGATIVE); BENZODIAZEPINES SCREEN,URINE POSITIVE (NEGATIVE); CANNABINOID SCREEN,URINE NEGATIVE (NEGATIVE); COCAINE SCREEN,URINE NEGATIVE (NEGATIVE); METHADONE SCREEN, URINE POSITIVE (NEGATIVE); OPIATE SCREEN,URINE NEGATIVE (NEGATIVE); PHENCYCLIDINE SCREEN,URINE NEGATIVE (NEGATIVE)
[2022-07-23 16:08] VITALS: BP 136/66
[2022-07-24] MEDS: METOPROLOL TARTRATE 25 MG TABLET PO SCH ×2 (08:33→17:34)
[2022-07-24] MEDS: LISINOPRIL 10 MG TABLET PO SCH (08:34)
[2022-07-24] MEDS: OMEPRAZOLE 20 MG CAPSULE PO SCH (08:34)
[2022-07-24] MEDS: ATORVASTATIN CALCIUM 40 MG TABLET PO SCH (08:34)
[2022-07-24] MEDS: ASPIRIN 81 MG CHEWABLE TABLET PO SCH (08:34)
[2022-07-24 08:44] VITALS: BP 103/63
[2022-07-24] MEDS: CEPHALEXIN MONOHYDRATE 500 MG CAPSULE PO SCH ×3 (15:09→20:17)
[2022-07-24 16:05] VITALS: BP 137/66
[2022-07-24] MEDS: OLANZapine 7.5 MG TABLET PO SCH (20:17)
[2022-07-25 08:25] VITALS: BP 150/69
[2022-07-25] MEDS: HALOPERIDOL 5 MG TABLET PO PRN ×2 (08:49→13:21)
[2022-07-25] MEDS: BuPROPion HCL 150 MG SR TABLET PO SCH (08:49)
[2022-07-25] MEDS: LISINOPRIL 10 MG TABLET PO SCH (08:49)
[2022-07-25] MEDS: LORazepam 2 MG TABLET PO PRN ×2 (08:49→13:21)
[2022-07-25 08:50] VITALS: BP 150/69
[2022-07-25] MEDS: METOPROLOL TARTRATE 25 MG TABLET PO SCH ×2 (08:50→16:11)
[2022-07-25] MEDS: ASPIRIN 81 MG CHEWABLE TABLET PO SCH (08:50)
[2022-07-25] MEDS: ATORVASTATIN CALCIUM 40 MG TABLET PO SCH (08:50)
[2022-07-25] MEDS: IBUPROFEN 600 MG TABLET PO PRN (08:50)
[2022-07-25] MEDS: OMEPRAZOLE 20 MG CAPSULE PO SCH (08:51)
[2022-07-25] MEDS: CEPHALEXIN MONOHYDRATE 500 MG CAPSULE PO SCH ×4 (08:51→20:16)
[2022-07-25 09:50] VITALS: BP 147/71
[2022-07-25 09:51] LABS: COVID AG,FIA SOURCE NASOPHARYNGEAL
[2022-07-25] MEDS: METHADONE HCL 10 MG TABLET PO SCH (10:55)
[2022-07-25 16:51] VITALS: BP 109/70
[2022-07-25] MEDS: OLANZapine 7.5 MG TABLET PO SCH (20:16)
[2022-07-26 08:51] VITALS: BP 150/81
[2022-07-26] MEDS: LISINOPRIL 10 MG TABLET PO SCH (09:03)
[2022-07-26] MEDS: METOPROLOL TARTRATE 25 MG TABLET PO SCH ×2 (09:04→16:24)
[2022-07-26] MEDS: BuPROPion HCL 150 MG SR TABLET PO SCH (09:04)
[2022-07-26] MEDS: ATORVASTATIN CALCIUM 40 MG TABLET PO SCH (09:08)
[2022-07-26] MEDS: OMEPRAZOLE 20 MG CAPSULE PO SCH (09:08)
[2022-07-26] MEDS: METHADONE HCL 10 MG TABLET PO SCH (09:09)
[2022-07-26] MEDS: ASPIRIN 81 MG CHEWABLE TABLET PO SCH (09:09)
[2022-07-26] MEDS: CEPHALEXIN MONOHYDRATE 500 MG CAPSULE PO SCH ×4 (09:09→20:55)
[2022-07-26] MEDS: LORazepam 2 MG TABLET PO PRN (12:43)
[2022-07-26 16:58] VITALS: BP 156/88
[2022-07-26] MEDS: OLANZapine 7.5 MG TABLET PO SCH (20:55)
[2022-07-27 08:40] VITALS: BP 119/68
[2022-07-27] MEDS: LISINOPRIL 10 MG TABLET PO SCH (08:43)
[2022-07-27] MEDS: BuPROPion HCL 150 MG SR TABLET PO SCH (08:43)
[2022-07-27] MEDS: ASPIRIN 81 MG CHEWABLE TABLET PO SCH (08:43)
[2022-07-27] MEDS: METHADONE HCL 10 MG TABLET PO SCH (08:43)
[2022-07-27] MEDS: OMEPRAZOLE 20 MG CAPSULE PO SCH (08:43)
[2022-07-27] MEDS: CEPHALEXIN MONOHYDRATE 500 MG CAPSULE PO SCH ×4 (08:44→20:54)
[2022-07-27] MEDS: METOPROLOL TARTRATE 25 MG TABLET PO SCH ×2 (08:44→16:42)
[2022-07-27] MEDS: ATORVASTATIN CALCIUM 40 MG TABLET PO SCH (08:44)
[2022-07-27] MEDS: LORazepam 2 MG TABLET PO PRN (12:49)
[2022-07-27 17:44] VITALS: BP 136/69
[2022-07-27] MEDS: OLANZapine 7.5 MG TABLET PO SCH (20:55)
[2022-07-28] MEDS: LISINOPRIL 10 MG TABLET PO SCH (08:43)
[2022-07-28] MEDS: ATORVASTATIN CALCIUM 40 MG TABLET PO SCH (08:43)
[2022-07-28] MEDS: METOPROLOL TARTRATE 25 MG TABLET PO SCH ×2 (08:43→16:41)
[2022-07-28] MEDS: CEPHALEXIN MONOHYDRATE 500 MG CAPSULE PO SCH ×4 (08:43→21:10)
[2022-07-28] MEDS: METHADONE HCL 10 MG TABLET PO SCH (08:43)
[2022-07-28] MEDS: BuPROPion HCL 150 MG SR TABLET PO SCH (08:43)
[2022-07-28] MEDS: ASPIRIN 81 MG CHEWABLE TABLET PO SCH (08:44)
[2022-07-28] MEDS: OMEPRAZOLE 20 MG CAPSULE PO SCH (08:44)
[2022-07-28 09:42] LABS: COVID AG,FIA SOURCE NASAL SWAB
[2022-07-28] MEDS: LORazepam 2 MG TABLET PO PRN ×2 (11:04→18:21)
[2022-07-28 11:10] VITALS: BP 148/80
[2022-07-28] MEDS: IBUPROFEN 600 MG TABLET PO PRN (11:10)
[2022-07-28 16:18] VITALS: BP 112/79
[2022-07-28] MEDS: OLANZapine 7.5 MG TABLET PO SCH (21:10)
[2022-07-28] MEDS: ZOLPIDEM TARTRATE 10 MG TABLET PO PRN (21:10)
[2022-07-29] MEDS: LISINOPRIL 10 MG TABLET PO SCH (08:07)
[2022-07-29] MEDS: BuPROPion HCL 150 MG SR TABLET PO SCH (08:07)
[2022-07-29] MEDS: OMEPRAZOLE 20 MG CAPSULE PO SCH (08:07)
[2022-07-29] MEDS: ASPIRIN 81 MG CHEWABLE TABLET PO SCH (08:07)
[2022-07-29] MEDS: METHADONE HCL 10 MG TABLET PO SCH (08:08)
[2022-07-29] MEDS: CEPHALEXIN MONOHYDRATE 500 MG CAPSULE PO SCH ×4 (08:08→21:01)
[2022-07-29] MEDS: METOPROLOL TARTRATE 25 MG TABLET PO SCH ×2 (08:08→16:18)
[2022-07-29] MEDS: ATORVASTATIN CALCIUM 40 MG TABLET PO SCH (08:09)
[2022-07-29 09:25] VITALS: BP 137/92
[2022-07-29] MEDS: LORazepam 2 MG TABLET PO PRN (12:32)
[2022-07-29 16:16] VITALS: BP 150/78
[2022-07-29] MEDS: OLANZapine 7.5 MG TABLET PO SCH (21:01)
[2022-07-29] MEDS: ZOLPIDEM TARTRATE 10 MG TABLET PO PRN (21:01)
[2022-07-30] MEDS: ASPIRIN 81 MG CHEWABLE TABLET PO SCH (08:38)
[2022-07-30] MEDS: OMEPRAZOLE 20 MG CAPSULE PO SCH (08:39)
[2022-07-30] MEDS: CEPHALEXIN MONOHYDRATE 500 MG CAPSULE PO SCH ×4 (08:39→20:22)
[2022-07-30] MEDS: ATORVASTATIN CALCIUM 40 MG TABLET PO SCH (08:39)
[2022-07-30] MEDS: METHADONE HCL 10 MG TABLET PO SCH (08:40)
[2022-07-30] MEDS: LISINOPRIL 10 MG TABLET PO SCH (08:41)
[2022-07-30] MEDS: BuPROPion HCL 150 MG SR TABLET PO SCH (08:41)
[2022-07-30] MEDS: METOPROLOL TARTRATE 25 MG TABLET PO SCH ×2 (08:41→16:56)
[2022-07-30] MEDS: LORazepam 2 MG TABLET PO PRN ×2 (12:11→19:22)
[2022-07-30 16:19] VITALS: BP 121/81
[2022-07-30] MEDS: OLANZapine 7.5 MG TABLET PO SCH (20:22)
[2022-07-30] MEDS: ZOLPIDEM TARTRATE 10 MG TABLET PO PRN (20:22)
[2022-07-31 08:00] VITALS: BP 140/84
[2022-07-31] MEDS: BuPROPion HCL 150 MG SR TABLET PO SCH (09:04)
[2022-07-31] MEDS: LISINOPRIL 10 MG TABLET PO SCH (09:04)
[2022-07-31] MEDS: ASPIRIN 81 MG CHEWABLE TABLET PO SCH (09:04)
[2022-07-31] MEDS: ATORVASTATIN CALCIUM 40 MG TABLET PO SCH (09:04)
[2022-07-31] MEDS: OMEPRAZOLE 20 MG CAPSULE PO SCH (09:04)
[2022-07-31] MEDS: CEPHALEXIN MONOHYDRATE 500 MG CAPSULE PO SCH ×4 (09:04→21:02)
[2022-07-31] MEDS: METOPROLOL TARTRATE 25 MG TABLET PO SCH ×2 (09:04→17:48)
[2022-07-31] MEDS: METHADONE HCL 10 MG TABLET PO SCH (09:05)
[2022-07-31] MEDS: LORazepam 2 MG TABLET PO PRN (11:30)
[2022-07-31 16:00] VITALS: BP 132/89
[2022-07-31] MEDS: OLANZapine 7.5 MG TABLET PO SCH (21:02)
[2022-08-01] MEDS: LORazepam 2 MG TABLET PO PRN ×3 (06:57→17:51)
[2022-08-01] MEDS: METOPROLOL TARTRATE 25 MG TABLET PO SCH ×2 (09:42→17:45)
[2022-08-01] MEDS: BuPROPion HCL 150 MG SR TABLET PO SCH (09:42)
[2022-08-01] MEDS: ATORVASTATIN CALCIUM 40 MG TABLET PO SCH (09:48)
[2022-08-01] MEDS: METHADONE HCL 10 MG TABLET PO SCH (09:48)
[2022-08-01] MEDS: LISINOPRIL 10 MG TABLET PO SCH (09:48)
[2022-08-01] MEDS: OMEPRAZOLE 20 MG CAPSULE PO SCH (09:48)
[2022-08-01] MEDS: CEPHALEXIN MONOHYDRATE 500 MG CAPSULE PO SCH ×4 (09:48→20:12)
[2022-08-01] MEDS: ASPIRIN 81 MG CHEWABLE TABLET PO SCH (09:49)
[2022-08-01] MEDS: HALOPERIDOL 5 MG TABLET PO PRN ×2 (11:02→17:51)
[2022-08-01 11:15] VITALS: BP_SYST 160; BP_SYST 174; BP_DIAS 66; BP_DIAS 79
[2022-08-01 16:35] VITALS: BP 109/69
[2022-08-01] MEDS: ZOLPIDEM TARTRATE 10 MG TABLET PO PRN (20:12)
[2022-08-01] MEDS: OLANZapine 7.5 MG TABLET PO SCH (20:12)
[2022-08-02] MEDS: CEPHALEXIN MONOHYDRATE 500 MG CAPSULE PO SCH ×4 (10:36→20:43)
[2022-08-02] MEDS: LORazepam 2 MG TABLET PO PRN ×2 (10:37→14:42)
[2022-08-02] MEDS: METOPROLOL TARTRATE 25 MG TABLET PO SCH ×2 (10:37→17:41)
[2022-08-02] MEDS: LISINOPRIL 10 MG TABLET PO SCH (10:37)
[2022-08-02] MEDS: OMEPRAZOLE 20 MG CAPSULE PO SCH (10:37)
[2022-08-02] MEDS: BuPROPion HCL 150 MG SR TABLET PO SCH (10:37)
[2022-08-02] MEDS: ATORVASTATIN CALCIUM 40 MG TABLET PO SCH (10:37)
[2022-08-02] MEDS: ASPIRIN 81 MG CHEWABLE TABLET PO SCH (10:37)
[2022-08-02] MEDS: HALOPERIDOL 5 MG TABLET PO PRN ×2 (10:39→14:42)
[2022-08-02] MEDS: METHADONE HCL 10 MG TABLET PO SCH (10:39)
[2022-08-02] MEDS ORDERED: DiphenhydrAMINE HCL 50 MG/ML VIAL IM ONE (14:30)
[2022-08-02] MEDS: OLANZapine 7.5 MG TABLET PO SCH (20:43)
[2022-08-03] MEDS: BuPROPion HCL 150 MG SR TABLET PO SCH (09:46)
[2022-08-03] MEDS: METOPROLOL TARTRATE 25 MG TABLET PO SCH ×2 (09:46→18:16)
[2022-08-03] MEDS: OMEPRAZOLE 20 MG CAPSULE PO SCH (09:50)
[2022-08-03] MEDS: CEPHALEXIN MONOHYDRATE 500 MG CAPSULE PO SCH (09:51)
[2022-08-03] MEDS: ATORVASTATIN CALCIUM 40 MG TABLET PO SCH (09:51)
[2022-08-03] MEDS: LISINOPRIL 10 MG TABLET PO SCH (09:51)
[2022-08-03] MEDS: METHADONE HCL 10 MG TABLET PO SCH (09:51)
[2022-08-03] MEDS: ASPIRIN 81 MG CHEWABLE TABLET PO SCH (09:52)
[2022-08-03 16:09] VITALS: BP 161/83
[2022-08-03] MEDS: ZOLPIDEM TARTRATE 10 MG TABLET PO PRN (20:55)
[2022-08-03] MEDS: OLANZapine 7.5 MG TABLET PO SCH (20:56)
[2022-08-04 04:46] LABS: COVID AG,FIA SOURCE NASAL SWAB
[2022-08-04 08:23] VITALS: BP 142/81
[2022-08-04] MEDS: OMEPRAZOLE 20 MG CAPSULE PO SCH (08:52)
[2022-08-04] MEDS: LISINOPRIL 10 MG TABLET PO SCH (08:52)
[2022-08-04] MEDS: ATORVASTATIN CALCIUM 40 MG TABLET PO SCH (08:52)
[2022-08-04] MEDS: ASPIRIN 81 MG CHEWABLE TABLET PO SCH (08:52)
[2022-08-04] MEDS: METOPROLOL TARTRATE 25 MG TABLET PO SCH ×2 (08:53→16:11)
[2022-08-04] MEDS: BuPROPion HCL 150 MG SR TABLET PO SCH (08:53)
[2022-08-04] MEDS: METHADONE HCL 10 MG TABLET PO SCH (08:53)
[2022-08-04] MEDS: LORazepam 2 MG TABLET PO PRN ×2 (11:19→21:13)
[2022-08-04 16:09] VITALS: BP 160/85
[2022-08-04] MEDS: OLANZapine 7.5 MG TABLET PO SCH (20:41)
[2022-08-04] MEDS: ZOLPIDEM TARTRATE 10 MG TABLET PO PRN (21:59)
[2022-08-05] MEDS: BuPROPion HCL 150 MG SR TABLET PO SCH (08:31)
[2022-08-05] MEDS: METOPROLOL TARTRATE 25 MG TABLET PO SCH ×2 (08:31→16:23)
[2022-08-05] MEDS: ATORVASTATIN CALCIUM 40 MG TABLET PO SCH (08:31)
[2022-08-05] MEDS: OMEPRAZOLE 20 MG CAPSULE PO SCH (08:31)
[2022-08-05] MEDS: LISINOPRIL 10 MG TABLET PO SCH (08:31)
[2022-08-05] MEDS: ASPIRIN 81 MG CHEWABLE TABLET PO SCH (08:31)
[2022-08-05] MEDS: METHADONE HCL 10 MG TABLET PO SCH (08:32)
[2022-08-05 09:25] VITALS: BP 137/77
[2022-08-05] MEDS: LORazepam 2 MG TABLET PO PRN ×2 (12:14→19:27)
[2022-08-05 16:19] VITALS: BP 146/77
[2022-08-05] MEDS: OLANZapine 7.5 MG TABLET PO SCH (20:16)
[2022-08-05] MEDS: ZOLPIDEM TARTRATE 10 MG TABLET PO PRN (22:18)
[2022-08-06] MEDS: LISINOPRIL 10 MG TABLET PO SCH (08:18)
[2022-08-06] MEDS: METHADONE HCL 10 MG TABLET PO SCH (08:18)
[2022-08-06] MEDS: ASPIRIN 81 MG CHEWABLE TABLET PO SCH (08:18)
[2022-08-06] MEDS: METOPROLOL TARTRATE 25 MG TABLET PO SCH ×2 (08:18→16:21)
[2022-08-06] MEDS: OMEPRAZOLE 20 MG CAPSULE PO SCH (08:18)
[2022-08-06] MEDS: ATORVASTATIN CALCIUM 40 MG TABLET PO SCH (08:18)
[2022-08-06 08:19] VITALS: BP 156/91
[2022-08-06] MEDS: BuPROPion HCL 150 MG SR TABLET PO SCH (08:19)
[2022-08-06] MEDS: LORazepam 2 MG TABLET PO PRN ×2 (10:53→20:46)
[2022-08-06 16:13] VITALS: BP 136/79
[2022-08-06] MEDS: OLANZapine 7.5 MG TABLET PO SCH (20:46)
[2022-08-06] MEDS: ZOLPIDEM TARTRATE 10 MG TABLET PO PRN (21:50)
[2022-08-07 03:20] VITALS: BP 137/77
[2022-08-07] MEDS: IBUPROFEN 600 MG TABLET PO PRN (03:20)
[2022-08-07 08:21] VITALS: BP 117/64
[2022-08-07] MEDS: METOPROLOL TARTRATE 25 MG TABLET PO SCH ×2 (08:58→17:49)
[2022-08-07] MEDS: BuPROPion HCL 150 MG SR TABLET PO SCH (08:58)
[2022-08-07] MEDS: ASPIRIN 81 MG CHEWABLE TABLET PO SCH (09:00)
[2022-08-07] MEDS: METHADONE HCL 10 MG TABLET PO SCH (09:00)
[2022-08-07] MEDS: ATORVASTATIN CALCIUM 40 MG TABLET PO SCH (09:00)
[2022-08-07] MEDS: LISINOPRIL 10 MG TABLET PO SCH (09:00)
[2022-08-07] MEDS: OMEPRAZOLE 20 MG CAPSULE PO SCH (09:01)
[2022-08-07] MEDS: LORazepam 2 MG TABLET PO PRN (14:35)
[2022-08-07 16:11] VITALS: BP 117/67
[2022-08-07] MEDS: OLANZapine 7.5 MG TABLET PO SCH (20:13)
[2022-08-08] MEDS: LORazepam 2 MG TABLET PO PRN (08:17)
[2022-08-08 08:22] VITALS: BP 126/82
[2022-08-08] MEDS: METHADONE HCL 10 MG TABLET PO SCH (11:23)
[2022-08-08] MEDS: ASPIRIN 81 MG CHEWABLE TABLET PO SCH (11:24)
[2022-08-08] MEDS: OMEPRAZOLE 20 MG CAPSULE PO SCH (11:24)
[2022-08-08] MEDS: ATORVASTATIN CALCIUM 40 MG TABLET PO SCH (11:24)
[2022-08-08] MEDS: BuPROPion HCL 150 MG SR TABLET PO SCH (11:25)
[2022-08-08] MEDS: LISINOPRIL 10 MG TABLET PO SCH (11:25)
[2022-08-08] MEDS: METOPROLOL TARTRATE 25 MG TABLET PO SCH ×2 (11:26→18:05)
[2022-08-08 15:31] VITALS: BP 128/86
[2022-08-08] MEDS: IBUPROFEN 600 MG TABLET PO PRN (15:31)
[2022-08-08 16:21] VITALS: BP 128/86
[2022-08-08] MEDS: OLANZapine 7.5 MG TABLET PO SCH (20:05)
[2022-08-09 08:00] VITALS: BP 115/76
[2022-08-09] MEDS: BuPROPion HCL 150 MG SR TABLET PO SCH (09:32)
[2022-08-09] MEDS: METOPROLOL TARTRATE 25 MG TABLET PO SCH ×2 (09:32→18:00)
[2022-08-09] MEDS: ASPIRIN 81 MG CHEWABLE TABLET PO SCH (09:33)
[2022-08-09] MEDS: LISINOPRIL 10 MG TABLET PO SCH (09:33)
[2022-08-09] MEDS: ATORVASTATIN CALCIUM 40 MG TABLET PO SCH (09:33)
[2022-08-09] MEDS: OMEPRAZOLE 20 MG CAPSULE PO SCH (09:33)
[2022-08-09] MEDS: METHADONE HCL 10 MG TABLET PO SCH (09:33)
[2022-08-09] MEDS: LORazepam 2 MG TABLET PO PRN ×2 (12:16→23:39)
[2022-08-09 16:00] VITALS: BP 121/81
[2022-08-09] MEDS: OLANZapine 7.5 MG TABLET PO SCH (20:33)
[2022-08-10] MEDS: METHADONE HCL 10 MG TABLET PO SCH (08:33)
[2022-08-10] MEDS: OMEPRAZOLE 20 MG CAPSULE PO SCH (08:34)
[2022-08-10] MEDS: LISINOPRIL 10 MG TABLET PO SCH (08:34)
[2022-08-10] MEDS: ATORVASTATIN CALCIUM 40 MG TABLET PO SCH (08:34)
[2022-08-10] MEDS: BuPROPion HCL 150 MG SR TABLET PO SCH (08:34)
[2022-08-10] MEDS: METOPROLOL TARTRATE 25 MG TABLET PO SCH ×2 (08:34→16:49)
[2022-08-10] MEDS: ASPIRIN 81 MG CHEWABLE TABLET PO SCH (08:34)
[2022-08-10 09:00] VITALS: BP 143/83
[2022-08-10] MEDS: LORazepam 2 MG TABLET PO PRN (15:19)
[2022-08-10 16:20] VITALS: BP 126/68
[2022-08-10] MEDS: IBUPROFEN 600 MG TABLET PO PRN (16:20)
[2022-08-10 16:43] VITALS: BP 112/66
[2022-08-10] MEDS: OLANZapine 7.5 MG TABLET PO SCH (20:28)
[2022-08-10 20:33] VITALS: BP 119/75
[2022-08-10] MEDS ORDERED: BUPR-113 PO (21:51)
[2022-08-10] MEDS ORDERED: OLAN7.5T22 PO (21:51)
[2022-08-11 06:57] LABS: COVID AG,FIA SOURCE NASAL SWAB
[2022-08-11] MEDS: METOPROLOL TARTRATE 25 MG TABLET PO SCH (08:29)
[2022-08-11] MEDS: BuPROPion HCL 150 MG SR TABLET PO SCH (08:29)
[2022-08-11] MEDS: ATORVASTATIN CALCIUM 40 MG TABLET PO SCH (08:32)
[2022-08-11] MEDS: OMEPRAZOLE 20 MG CAPSULE PO SCH (08:32)
[2022-08-11] MEDS: LISINOPRIL 10 MG TABLET PO SCH (08:32)
[2022-08-11] MEDS: ASPIRIN 81 MG CHEWABLE TABLET PO SCH (08:32)
[2022-08-11] MEDS: METHADONE HCL 10 MG TABLET PO SCH (08:32)
[2022-08-11 09:08] VITALS: BP 154/83
[2022-08-11] MEDS: IBUPROFEN 600 MG TABLET PO PRN (14:18)
== END 2022-08-11 15:15 | disposition home or self-care (01) | DRG 750 ==
LOC: EMS 14:45 → 3EC 07-23 00:46
PROVIDERS: ADMIT Psychiatry & Neurology Psychiatry; ATTEND Psychiatry & Neurology Psychiatry
DX: F25.9 Schizoaffective disorder, unspecified (principal); R45.851 Suicidal ideations; Z68.43 Body mass index [BMI] 50.0-59.9, adult; E66.9 Obesity, unspecified; E78.1 Pure hyperglyceridemia; E78.5 Hyperlipidemia, unspecified; G47.00 Insomnia, unspecified; G89.29 Other chronic pain; I10 Essential (primary) hypertension; Z20.822 Contact with and (suspected) exposure to COVID-19; J44.9 Chronic obstructive pulmonary disease, unspecified; K21.9 Gastro-esophageal reflux disease without esophagitis; K59.00 Constipation, unspecified; M21.371 Foot drop, right foot; Z71.6 Tobacco abuse counseling; Z72.0 Tobacco use; Z85.819 Personal history of malignant neoplasm of unspecified site of lip, oral cavity, and pharynx
CPT/HCPCS: 80053; 81003; 85025; 93970; 99285; G0480; J1200